=== PATIENT | male | born 1940 | race Caucasian/White ===

== ENCOUNTER 2017-01-23 12:55 | Inpatient (IN) | payer OTHER, MEDICARE ==
[2017-01-23] VITALS (9 sets, daily range): BP systolic 114–121; BP diastolic 65–69; PULSE 77–89; RESP 15; TEMP 97–98.8; O2SAT 99–100
[~2017-01-23] VITALS: Ht 180.3 cm; Wt 123.1 kg
[~2017-01-23 12:55] MED LIST: ASPI81TA82 PO; CARV3.12 PO; OXYBXL10 PO; PANT40IN3 PO; SIMV20TA PO
[2017-01-23] MEDS ORDERED: ONDANSETRON HCL 4 MG/2 ML VIAL IV PRN ×2 (13:15→14:30)
[2017-01-23] MEDS: PANTOPRAZOLE SODIUM 40 MG VIAL IV SCH (13:15)
[2017-01-23] MEDS ORDERED: NALOXONE HCL 0.4 MG/ML AMP IV PRN (13:15)
[2017-01-23] MEDS ORDERED: SODIUM CHLORIDE 0.9% FLUSH 5 ML FLUSH IVF PRN (13:15)
[2017-01-23] MEDS ORDERED: Post-op Orders (for Pharmacy) MISC XX ONE (13:15)
[2017-01-23 13:18] LABS: I-STAT POTASSIUM 7.2 MMOL/L (3.5-4.9)
[2017-01-23 13:19] LABS: AUTOMATED NEUTROPHIL # 6.1 TH/MM3 (1.8-7.7); BASOPHIL # 0.1 TH/MM3 (0-0.2); BASOPHIL % 0.6 % (0.0-2.0); EOSINOPHIL # 0.2 TH/MM3 (0-0.4); EOSINOPHIL % 2.7 % (0.0-4.0); HEMATOCRIT 43.1 % (39.0-51.0); HEMO FLAGS DIFF FINAL; LYMPH % 19.1 % (9.0-44.0); LYMPHOCYTE # 1.7 TH/MM3 (1.0-4.8); MEAN CELL VOLUME 85.5 FL (80.0-100.0); MEAN CORPUSCULAR HEMOGLOBIN 29.4 PG (27.0-34.0); MEAN CORPUSCULAR HGB CONC 34.4 % (32.0-36.0); MONO % 8.4 % (0.0-8.0); NEUT % 69.2 % (16.0-70.0); PLATELET COUNT 150 TH/MM3 (150-450); RED BLOOD COUNT 5.03 MIL/MM3 (4.50-5.90); RED CELL DISTRIBUTION WIDTH 13.8 % (11.6-17.2); WHITE BLOOD COUNT 8.8 TH/MM3 (4.0-11.0)
[2017-01-23 13:29] LABS: APTT (PATIENT) 25.1 SEC (24.3-30.1); INTERNATIONAL NORMALIZED RATIO 1.1 RATIO; PROTHROMBIN TIME - PATIENT 11.8 SEC (9.8-11.6)
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
[2017-01-23] MEDS ORDERED: IOHEXOL 350 MG/ML 10 ML VIAL (for RAD DIAG) IV ONE (13:42)
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
[2017-01-23] MEDS: fentaNYL DRIP 250 ML IV SCH ×2 (14:00→22:12)
[2017-01-23] MEDS: levETIRAcetam INJ 500 MG in SODIUM CHLORIDE 0.9% INJ 100 ML IV SCH ×2 (14:00→22:06)
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
[2017-01-23] MEDS ORDERED: DEXTROSE 50% IN WATER 50 ML VIAL(D50) IV PUSH PRN (14:30)
[2017-01-23] MEDS ORDERED: MAGNESIUM SULFATE INJ 2 GM in SODIUM CHLORIDE 0.9% INJ 96 ML IV PRN (14:30)
[2017-01-23] MEDS ORDERED: MISCELLANEOUS NURSING INFORMATION XX SCH (14:30)
[2017-01-23] MEDS ORDERED: RESP: ALBUTEROL 2.5 MG/IPRATROPIUM 0.5 MG NEB (PRN) INH (14:30)
[2017-01-23] MEDS ORDERED: SODIUM CHLORIDE 0.9% FLUSH 10 ML FLUSH IV FLUSH PRN (14:30)
[2017-01-23] MEDS ORDERED: POTASSIUM CHLOR 40 MEQ PREMIX 100 ML IV PRN (14:30)
[2017-01-23] MEDS ORDERED: MAGNESIUM OXIDE 400 MG TAB PO PRN (14:30)
[2017-01-23] MEDS ORDERED: POTASSIUM CHLOR 20 MEQ PREMIX 100 ML IV PRN (14:30)
[2017-01-23] MEDS ORDERED: POTASSIUM PHOSPHATE INJ 30 MMOL in SODIUM CHLOR 0.9% 250 ML INJ 250 ML IV PRN (14:30)
[2017-01-23] MEDS ORDERED: POTASSIUM PHOSPHATE MONOBASIC 500 MG TAB PO/TUBE PRN (14:30)
[2017-01-23] MEDS ORDERED: POTASSIUM PHOSPHATE MONOBASIC 500 MG TAB PO PRN (14:30)
[2017-01-23] MEDS ORDERED: CHLORHEXIDINE GLUCONATE 2 % 1 PACK (2 CLOTHS) TOP PRN (14:30)
[2017-01-23] MEDS ORDERED: MAGNESIUM SULFATE INJ 4 GM in SODIUM CHLORIDE 0.9% INJ 92 ML IV PRN (14:30)
[2017-01-23] MEDS ORDERED: SODIUM PHOSPHATE INJ 30 MMOL in SODIUM CHLOR 0.9% 250 ML INJ 240 ML IV PRN (14:30)
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
--- NOTE | 2017-01-23 15:09 | PD.PROCEDR ---
Procedure Note Procedure Procedure: Arterial Line Placement Right radial arterial line Diagnosis: Traumatic Brain injury Indications: Need for beat to beat hemodynamic monitoring Consent: Is deemed emergent or medically necessary Description of the Procedure: The right wrist was prepped and draped sterilely. 1% lidocaine was used for local anesthesia. The pulse was located and a needle was advanced into the artery. A 20 gauge, 12 cm catheter was advanced into the artery using a modified Seldinger technique. The catheter was sutured to the skin and a sterile dressing was applied. The catheter was connected to a pressure transducer and an arterial waveform was noted. There were no immediate complications noted. There was minimal EBL. I personally performed the procedure. Lul Orozco MD Jan 23, 2017 15:09
[2017-01-23 15:23] LABS: BICARBONATE 23.8 MEQ/L (21.0-32.0); POTASSIUM 4.3 MEQ/L (3.5-5.1)
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
[2017-01-23] MEDS: 3% SALINE INJ 500 ML IV PRN ×2 (16:00→22:14)
[2017-01-23] MEDS: RESP: ALBUTEROL 2.5 MG/IPRATROPIUM 0.5 MG NEB (SCH) INH ×2 (16:18→21:00)
[2017-01-23] MEDS: PROPOFOL 1000 MG/100 ML INJ 100 ML IV SCH ×3 (16:20→22:04)
--- NOTE | 2017-01-23 16:28 | RADRPT ---
EXAM DATE/TIME: 01/23/2017 15:54 [facility] COMPARISON: CHEST SINGLE AP, January 23, 2017, 12:52. INDICATIONS : Central line placement. MEDICAL HISTORY : SURGICAL HISTORY : None. ENCOUNTER: Subsequent ACUITY: 2 days PAIN SCORE: Non-responsive. LOCATION: Bilateral chest FINDINGS: A single view of the chest demonstrates multiple left lateral rib fractures with no obvious pneumotho rax. Endotracheal tube remains appropriately positioned above the gayathri with interval placement of a left subclavian central venous catheter. Tip projects over the central venous system. Nasogastric tu be is now present which crosses the GE junction and enters the stomach. Findings of prior CABG. Mild atelectatic changes of the left hemidiaphragm laterally. Lungs are other meza clear. CONCLUSION: 1. Stable position of endotracheal tube with interval placement of nasogastric tube and left subclavi an central venous catheter. 2. Mild atelectatic changes in the left base. Lungs are otherwise clear. 3. Multiple left-sided rib fractures. No pneumothorax. 4. Prior CABG. Ralph Thompson MD on January 23, 2017 at 16:23 Board Certified Radiologist. This report was verified electronically.
[2017-01-23 16:30] LABS: BLOOD GAS BASE EXCESS -4.5 mmol/L (-2-2); BLOOD GAS CARBOXYHEMOGLOBIN 1.1 % (0-4); BLOOD GAS HCO3 21 mmol/L (22-26); BLOOD GAS METHEMOGLOBIN 0.9 % (0-2); BLOOD GAS O2 HGB SATURATION 97 % (90-100); BLOOD GAS OXYGEN CONTENT 20.3 Vol % (12.0-20.0); BLOOD GAS PCO2 42 mmHg (38-42); BLOOD GAS PO2 129 mmHg (61-120); BLOOD GAS TOTAL HGB 14.8 G/DL (12.0-16.0); CRITICAL VALUE NO; TEMP CORR TO 98.6
[2017-01-23 16:31] LABS: DRAW SITE ART LINE; FIO2 40 %; OXYGEN DEVICE VENTILATOR; STAT NO
[2017-01-23] MEDS ORDERED: MIDAZOLAM HCL 5 MG/ML VIAL (1 ML) ONE (16:35)
[2017-01-23] MEDS: SODIUM CHLOR 0.9% 1000 ML INJ 1,000 ML IV SCH ×2 (17:15→23:57)
[2017-01-23] MEDS ORDERED: 3% SALINE INJ 250 ML IV ONE (17:15)
[2017-01-23] MEDS ORDERED: SODIUM CHLOR 0.9% 1000 ML INJ 1,000 ML IV ONE (17:15)
[2017-01-23] MEDS ORDERED: SODIUM CHLORIDE 23.4% INJ 240 MEQ in SYRINGE/BAG 1 EA IV ONE (17:15)
[2017-01-23] MEDS: INSULIN NovoLIN REGULAR SUPPLEMENTAL SCALE SQ SCH (18:00)
[2017-01-23] MEDS ORDERED: ASPI81CH CHEW (18:22)
[2017-01-23] MEDS ORDERED: PANT40TA3 PO (18:22)
[2017-01-23] MEDS ORDERED: SIMV20TA PO (18:22)
[2017-01-23] MEDS ORDERED: CARV6.252 PO (18:22)
[2017-01-23] MEDS ORDERED: FINA5TAB2 PO (18:22)
[2017-01-23] MEDS: DOCUSATE SODIUM 50 MG/SENNA 8.6 MG TAB PO SCH (20:49)
[2017-01-23] MEDS: SODIUM CHLORIDE 0.9% FLUSH 5 ML FLUSH IVF SCH (20:50)
[2017-01-23] MEDS: CHLORHEXIDINE 0.12% (ORAL KIT) 15 ML CUP MT SCH (20:50)
[2017-01-23] MEDS ORDERED: NOREPINEPHRINE 4 MG/4 ML AMP ONE (20:58)
[2017-01-23] MEDS ORDERED: SODIUM CHLORIDE 0.9% FLUSH 10 ML FLUSH IV FLUSH SCH (21:00)
[2017-01-23] MEDS ORDERED: SODIUM CHLORIDE 23.4% INJ 240 MEQ in SYRINGE/BAG 1 EA IV PRN (21:00)
[2017-01-23] MEDS: NOREPINEPHRINE IV SCH (22:13)
[2017-01-23] MEDS: SODIUM CHLORIDE 0.9% IV SCH (22:13)
[2017-01-24] VITALS (20 sets, daily range): BP systolic 105–135; BP diastolic 50–62; PULSE 56–77; RESP 15–18; TEMP 98.8–100; O2SAT 98–100
[2017-01-24] MEDS: PROPOFOL 1000 MG/100 ML INJ 100 ML IV SCH ×7 (01:59→23:43)
[2017-01-24] MEDS: RESP: ALBUTEROL 2.5 MG/IPRATROPIUM 0.5 MG NEB (SCH) INH ×4 (03:16→20:51)
[2017-01-24] MEDS: CHLORHEXIDINE GLUCONATE 2 % 1 PACK (2 CLOTHS) TOP SCH (03:20)
[2017-01-24 03:23] LABS: AUTOMATED NEUTROPHIL # 8.6 TH/MM3 (1.8-7.7); BASOPHIL # 0.1 TH/MM3 (0-0.2); BASOPHIL % 0.6 % (0.0-2.0); EOSINOPHIL # 0.1 TH/MM3 (0-0.4); EOSINOPHIL % 1.1 % (0.0-4.0); HEMATOCRIT 36.1 % (39.0-51.0); HEMO FLAGS DIFF FINAL; LYMPH % 8.5 % (9.0-44.0); LYMPHOCYTE # 0.9 TH/MM3 (1.0-4.8); MEAN CELL VOLUME 85.6 FL (80.0-100.0); MONO % 12.2 % (0.0-8.0); NEUT % 77.6 % (16.0-70.0); PLATELET COUNT 121 TH/MM3 (150-450); RED BLOOD COUNT 4.21 MIL/MM3 (4.50-5.90); RED CELL DISTRIBUTION WIDTH 14.3 % (11.6-17.2); WHITE BLOOD COUNT 11.1 TH/MM3 (4.0-11.0)
[2017-01-24 03:49] LABS: BICARBONATE 22.3 MEQ/L (21.0-32.0); POTASSIUM 3.9 MEQ/L (3.5-5.1)
--- NOTE | 2017-01-24 04:46 | RADRPT ---
EXAM DATE/TIME: 01/24/2017 03:13 [facility] COMPARISON: CHEST SINGLE AP, January 23, 2017, 15:54. INDICATIONS : Shortness of breath. MEDICAL HISTORY : Non-responsive SURGICAL HISTORY : Non-responsive ENCOUNTER: Subsequent ACUITY: 2 days PAIN SCORE: Non-responsive. LOCATION: Bilateral chest FINDINGS: Sternotomy wires, mediastinal clips and cardiomegaly. No definite consolidation. CONCLUSION: No significant change has occurred. Germain Vallejo MD on January 24, 2017 at 4:44 Board Certified Radiologist. This report was verified electronically.
[2017-01-24] MEDS: SODIUM CHLORIDE 0.9% IV SCH ×2 (05:54→16:04)
[2017-01-24] MEDS: NOREPINEPHRINE IV SCH ×2 (05:54→16:04)
[2017-01-24] MEDS: INSULIN NovoLIN REGULAR SUPPLEMENTAL SCALE SQ SCH ×4 (06:00→17:13)
[2017-01-24 06:07] LABS: BLOOD GAS BASE EXCESS -4.5 mmol/L (-2-2); BLOOD GAS CARBOXYHEMOGLOBIN 1.5 % (0-4); BLOOD GAS HCO3 20 mmol/L (22-26); BLOOD GAS METHEMOGLOBIN 0.9 % (0-2); BLOOD GAS O2 HGB SATURATION 96 % (90-100); BLOOD GAS PCO2 34 mmHg (38-42); BLOOD GAS PO2 100 mmHg (61-120); BLOOD GAS TOTAL HGB 11.8 G/DL (12.0-16.0); CRITICAL VALUE NO; OXYGEN DEVICE VENTILATOR; TEMP CORR TO 98.6
[2017-01-24 06:08] LABS: DRAW SITE ART LINE; FIO2 40 %; STAT NO; VENT SETTINGS PRVC/AC
--- NOTE | 2017-01-24 06:18 | RADRPT ---
EXAM DATE/TIME: 01/24/2017 05:12 [facility] COMPARISON: CT BRAIN W/O CONTRAST, January 23, 2017, 13:22. INDICATIONS : Evaluate for hemorrhage. RADIATION DOSE: 68.42 CTDIvol (mGy) MEDICAL HISTORY : Non-responsive. SURGICAL HISTORY : Non-responsive. ENCOUNTER: Subsequent ACUITY: 1 day PAIN SCALE: Non-responsive LOCATION: cranial TECHNIQUE: Multiple contiguous axial images were obtained of the head. Using automated exposure control and adj ustment of the mA and/or kV according to patient size, radiation dose was kept as low as reasonably a chievable to obtain optimal diagnostic quality images. FINDINGS: There is hemorrhage layering along the tentorium bilaterally, hemorrhage in the interpeduncular ciste rn and perimesencephalic cistern and ambient cistern, extensive subarachnoid hemorrhage with a as wel l as intra-ventricular hemorrhage. Bilateral mastoid fluid and left middle ear opacification. Left sp henoid sinus and right ethmoid opacification. There is pneumocephalus in the left frontal region whic h is new from previous. Left frontal ICP monitor. There is an extra-axial hemorrhage in the right mid dle cranial fossa measuring 1.8 x 5.5 cm in AP and transverse dimension, not significantly changed. T here is a rounded hemorrhage measuring 1.9 1.6 cm in transverse and AP dimension on axial image 16, n ew from the previous study in the right sylvian fissure region. CONCLUSION: Increased hemorrhage on the right otherwise stable diffuse subarachnoid hemorrhage, subdural hemorrha ge and intraventricular hemorrhage. There is no left frontal pneumocephalus with interval left fronta l ICP monitor placement. Germain Vallejo MD on January 24, 2017 at 6:11 Board Certified Radiologist. This report was verified electronically.
[2017-01-24] MEDS: PANTOPRAZOLE SODIUM 40 MG VIAL IV SCH (08:33)
[2017-01-24] MEDS: levETIRAcetam INJ 500 MG in SODIUM CHLORIDE 0.9% INJ 100 ML IV SCH ×2 (08:33→20:11)
[2017-01-24] MEDS: SODIUM CHLOR 0.9% 1000 ML INJ 1,000 ML IV SCH ×2 (08:33→18:54)
[2017-01-24] MEDS: DOCUSATE SODIUM 50 MG/SENNA 8.6 MG TAB PO SCH ×2 (08:34→20:15)
[2017-01-24] MEDS: SODIUM CHLORIDE 0.9% FLUSH 5 ML FLUSH IVF SCH ×2 (08:34→20:15)
[2017-01-24] MEDS: CHLORHEXIDINE 0.12% (ORAL KIT) 15 ML CUP MT SCH ×2 (08:51→20:15)
[2017-01-24] MEDS ORDERED: PANTOPRAZOLE SODIUM 40 MG VIAL IV SCH (09:00)
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
[2017-01-24] MEDS: LACTULOSE SYRUP 20 GM/30 ML CUP PO SCH (11:59)
[2017-01-24] MEDS: 3% SALINE INJ 500 ML IV PRN (12:00)
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
[2017-01-24] MEDS: fentaNYL DRIP 250 ML IV SCH ×2 (13:31→23:42)
[2017-01-24] MEDS: ACETAMINOPHEN 325 MG TAB PO PRN (14:54)
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
[2017-01-24 22:16] LABS: BICARBONATE 23.4 MEQ/L (21.0-32.0); CALCIUM-PROTEIN CORRECTED 8.5 MG/DL (8.5-10.1); POTASSIUM 3.6 MEQ/L (3.5-5.1); TOTAL BILIRUBIN ADULT 0.8 MG/DL (0.2-1.0)
[2017-01-25] VITALS (18 sets, daily range): BP systolic 124–149; BP diastolic 53–77; PULSE 54–115; RESP 18; TEMP 95.5–100.6; O2SAT 93–100
[2017-01-25] MEDS: PROPOFOL 1000 MG/100 ML INJ 100 ML IV SCH ×7 (02:37→23:53)
--- NOTE | 2017-01-25 03:20 | RADRPT ---
EXAM DATE/TIME: 01/25/2017 02:01 [facility] COMPARISON: CHEST SINGLE AP, January 24, 2017, 3:13. INDICATIONS : Short of breath. MEDICAL HISTORY : Non-responsive SURGICAL HISTORY : Non-responsive ENCOUNTER: Subsequent ACUITY: 3 days PAIN SCORE: Non-responsive. LOCATION: Bilateral chest FINDINGS: Cardiomegaly, bilateral effusions and basilar consolidation suspected. Endotracheal tube, left subcla vian line and sternotomy wires are noted. Degenerative changes of the spine are seen. CONCLUSION: Bilateral effusions and basilar airspace disease noted. Germain Vallejo MD on January 25, 2017 at 3:19 Board Certified Radiologist. This report was verified electronically.
[2017-01-25] MEDS: RESP: ALBUTEROL 2.5 MG/IPRATROPIUM 0.5 MG NEB (SCH) INH ×4 (03:41→21:06)
[2017-01-25] MEDS: CHLORHEXIDINE GLUCONATE 2 % 1 PACK (2 CLOTHS) TOP SCH (04:00)
[2017-01-25 04:31] LABS: AUTOMATED NEUTROPHIL # 8.5 TH/MM3 (1.8-7.7); BASOPHIL % 0.4 % (0.0-2.0); EOSINOPHIL # 0.2 TH/MM3 (0-0.4); EOSINOPHIL % 2.3 % (0.0-4.0); HEMATOCRIT 30.8 % (39.0-51.0); LYMPH % 7.9 % (9.0-44.0); LYMPHOCYTE # 0.8 TH/MM3 (1.0-4.8); MEAN CELL VOLUME 85.5 FL (80.0-100.0); MEAN CORPUSCULAR HEMOGLOBIN 30.1 PG (27.0-34.0); MEAN CORPUSCULAR HGB CONC 35.3 % (32.0-36.0); MONO % 9.2 % (0.0-8.0); NEUT % 80.2 % (16.0-70.0); PLATELET COUNT 79 TH/MM3 (150-450); RED CELL DISTRIBUTION WIDTH 14.5 % (11.6-17.2); WHITE BLOOD COUNT 10.6 TH/MM3 (4.0-11.0)
[2017-01-25 04:40] LABS: HEMO FLAGS AUTO DIFF
[2017-01-25 04:49] LABS: BLOOD GAS CARBOXYHEMOGLOBIN 1.6 % (0-4); BLOOD GAS HCO3 18 mmol/L (22-26); BLOOD GAS METHEMOGLOBIN 0.9 % (0-2); BLOOD GAS O2 HGB SATURATION 96 % (90-100); BLOOD GAS PO2 105 mmHg (61-120); BLOOD GAS TOTAL HGB 11.1 G/DL (12.0-16.0); CRITICAL VALUE NO; DRAW SITE ART LINE; FIO2 40 %; OXYGEN DEVICE VENTILATOR; STAT NO; TEMP CORR TO 98.6; VENT SETTINGS PRVC/AC
[2017-01-25 04:50] LABS: BLOOD GAS PCO2 30 mmHg (38-42)
[2017-01-25 04:59] LABS: ALKALINE PHOSPHATASE 44 U/L (45-117); ALT (GPT) 23 U/L (12-78); AST (GOT) 20 U/L (15-37); BICARBONATE 20.4 MEQ/L (21.0-32.0); BLOOD UREA NITROGEN 15 MG/DL (7-18); CHLORIDE 124 MEQ/L (98-107); GLOMERULAR FILTRATION RATE 103 ML/MIN (>89); MAGNESIUM 1.9 MG/DL (1.5-2.5); POTASSIUM 3.4 MEQ/L (3.5-5.1); SODIUM (NA) 153 MEQ/L (136-145); TOTAL BILIRUBIN ADULT 0.7 MG/DL (0.2-1.0)
[2017-01-25 05:00] LABS: ANION GAP 9 MEQ/L (5-15)
[2017-01-25 05:23] LABS: PLATELET ESTIMATE SMEAR LOW (NORMAL); PLATELET MORPHOLOGY NORMAL (NORMAL); SCAN/DIFF AUTO DIFF CONFIRMED
[2017-01-25] MEDS: SODIUM CHLORIDE 0.9% IV SCH (06:13)
[2017-01-25] MEDS: NOREPINEPHRINE IV SCH (06:13)
[2017-01-25] MEDS: MIDAZOLAM 100 MG/ML INJ 100 ML IV SCH (06:15)
[2017-01-25] MEDS: SODIUM CHLOR 0.9% 1000 ML INJ 1,000 ML IV SCH ×2 (06:20→15:15)
[2017-01-25] MEDS: PANTOPRAZOLE SODIUM 40 MG VIAL IV SCH (08:11)
[2017-01-25] MEDS: levETIRAcetam INJ 500 MG in SODIUM CHLORIDE 0.9% INJ 100 ML IV SCH ×2 (08:11→21:26)
[2017-01-25] MEDS: DOCUSATE SODIUM 50 MG/SENNA 8.6 MG TAB PO SCH ×2 (08:11→21:26)
[2017-01-25] MEDS: CHLORHEXIDINE 0.12% (ORAL KIT) 15 ML CUP MT SCH ×2 (08:11→20:03)
[2017-01-25] MEDS: LACTULOSE SYRUP 20 GM/30 ML CUP PO SCH (08:11)
[2017-01-25] MEDS: SODIUM CHLORIDE 0.9% FLUSH 5 ML FLUSH IVF SCH ×2 (08:13→21:26)
[2017-01-25] MEDS: INSULIN NovoLIN REGULAR SUPPLEMENTAL SCALE SQ SCH ×2 (11:19→17:43)
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
[2017-01-25] MEDS ORDERED: METOPROLOL TARTRATE 5 MG/5 ML VIAL ONE (13:03)
[2017-01-25] MEDS ORDERED: 3% SALINE INJ 500 ML IV SCH (13:23)
[2017-01-25] MEDS ORDERED: METOPROLOL TARTRATE 5 MG/5 ML VIAL IV PUSH ONE (13:30)
[2017-01-25] MEDS: fentaNYL DRIP 250 ML IV SCH (13:54)
[2017-01-25] MEDS: ACETAMINOPHEN 325 MG TAB PO PRN (13:54)
[2017-01-25] MEDS ORDERED: MEPERIDINE HCL 25 MG/ML VIAL IV STA (17:00)
[2017-01-25] MEDS ORDERED: METOPROLOL TARTRATE 5 MG/5 ML VIAL IV PUSH STA (17:07)
[2017-01-25 17:42] LABS: BLOOD GAS BASE EXCESS -6.5 mmol/L (-2-2); BLOOD GAS CARBOXYHEMOGLOBIN 1.5 % (0-4); BLOOD GAS HCO3 19 mmol/L (22-26); BLOOD GAS METHEMOGLOBIN 0.9 % (0-2); BLOOD GAS O2 HGB SATURATION 92 % (90-100); BLOOD GAS OXYGEN CONTENT 14.4 Vol % (12.0-20.0); BLOOD GAS PCO2 40 mmHg (38-42); BLOOD GAS PO2 76 mmHg (61-120); BLOOD GAS TOTAL HGB 11.1 G/DL (12.0-16.0); TEMP CORR TO 98.6
[2017-01-25 17:43] LABS: OXYGEN DEVICE VENTILATOR
[2017-01-25 17:44] LABS: DRAW SITE ART LINE; FIO2 60 %
[2017-01-25 17:45] LABS: STAT YES
[2017-01-25 18:59] LABS: BLOOD GAS BASE EXCESS -6.9 mmol/L (-2-2); BLOOD GAS CARBOXYHEMOGLOBIN 1.7 % (0-4); BLOOD GAS HCO3 18 mmol/L (22-26); BLOOD GAS METHEMOGLOBIN 0.9 % (0-2); BLOOD GAS O2 HGB SATURATION 92 % (90-100); BLOOD GAS OXYGEN CONTENT 14.3 Vol % (12.0-20.0); BLOOD GAS PCO2 37 mmHg (38-42); BLOOD GAS PO2 73 mmHg (61-120); CRITICAL VALUE NO; OXYGEN DEVICE VENTILATOR; TEMP CORR TO 98.6
[2017-01-25 19:00] LABS: DRAW SITE ART LINE; FIO2 40 %; STAT NO
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
[2017-01-26] VITALS (19 sets, daily range): BP systolic 130–155; BP diastolic 60–76; PULSE 52–73; RESP 18; TEMP 94.1–98.1; O2SAT 96–100
[2017-01-26 01:10] LABS: BLOOD GAS BASE EXCESS -7.4 mmol/L (-2-2); BLOOD GAS CARBOXYHEMOGLOBIN 1.7 % (0-4); BLOOD GAS HCO3 17 mmol/L (22-26); BLOOD GAS METHEMOGLOBIN 0.8 % (0-2); BLOOD GAS O2 HGB SATURATION 95 % (90-100); BLOOD GAS OXYGEN CONTENT 14.4 Vol % (12.0-20.0); BLOOD GAS PO2 96 mmHg (61-120); BLOOD GAS TOTAL HGB 10.7 G/DL (12.0-16.0); CRITICAL VALUE NO; TEMP CORR TO 98.6
[2017-01-26 01:11] LABS: BLOOD GAS PCO2 31 mmHg (38-42); OXYGEN DEVICE VENTILATOR
[2017-01-26 01:12] LABS: DRAW SITE ART LINE; FIO2 40 %; STAT NO; VENT SETTINGS PRVC/SIMV
[2017-01-26] MEDS: SODIUM CHLOR 0.9% 1000 ML INJ 1,000 ML IV SCH ×3 (01:29→20:59)
[2017-01-26] MEDS: fentaNYL DRIP 250 ML IV SCH ×2 (03:15→14:54)
[2017-01-26] MEDS: RESP: ALBUTEROL 2.5 MG/IPRATROPIUM 0.5 MG NEB (SCH) INH ×4 (03:46→20:26)
[2017-01-26] MEDS: CHLORHEXIDINE GLUCONATE 2 % 1 PACK (2 CLOTHS) TOP SCH (04:00)
[2017-01-26 04:51] LABS: HEMATOCRIT 30.6 % (39.0-51.0); MEAN CELL VOLUME 85.5 FL (80.0-100.0); MEAN CORPUSCULAR HEMOGLOBIN 29.6 PG (27.0-34.0); MEAN CORPUSCULAR HGB CONC 34.6 % (32.0-36.0); PLATELET COUNT 78 TH/MM3 (150-450); RED BLOOD COUNT 3.58 MIL/MM3 (4.50-5.90); RED CELL DISTRIBUTION WIDTH 14.5 % (11.6-17.2); WHITE BLOOD COUNT 11.4 TH/MM3 (4.0-11.0)
[2017-01-26 04:57] LABS: REVIEW FLAG FINAL
[2017-01-26 05:13] LABS: BICARBONATE 22.6 MEQ/L (21.0-32.0)
[2017-01-26] MEDS: SODIUM CHLORIDE 0.9% IV SCH (05:16)
[2017-01-26] MEDS: NOREPINEPHRINE IV SCH (05:16)
[2017-01-26] MEDS: PROPOFOL 1000 MG/100 ML INJ 100 ML IV SCH ×7 (05:18→19:44)
[2017-01-26] MEDS: INSULIN NovoLIN REGULAR SUPPLEMENTAL SCALE SQ SCH ×5 (05:23→23:55)
[2017-01-26] MEDS: POTASSIUM CHLOR 40 MEQ PREMIX 100 ML IV PRN ×3 (06:31→20:57)
--- NOTE | 2017-01-26 06:35 | RADRPT ---
EXAM DATE/TIME: 01/26/2017 05:25 [facility] COMPARISON: CHEST SINGLE AP, January 25, 2017, 2:01. INDICATIONS : Shortness of breath. MEDICAL HISTORY : None. SURGICAL HISTORY : None. ENCOUNTER: Subsequent ACUITY: 4 - 6 days PAIN SCORE: Non-responsive. LOCATION: Bilateral chest FINDINGS: Single portable frontal view the chest shows breathing motion artifact. Tip of the endotracheal tube approximately 5 cm from the gayathri. Nasogastric tube tip in the region of the body the stomach. Left subclavian central line. No pneumothorax. Bibasilar intra-alveolar infiltrates with small effusions a re stable. Heart is normal in size. Median sternotomy wires. CONCLUSION: Unchanged bibasilar infiltrates with small effusions. Haroon Zepeda Jr., MD on January 26, 2017 at 6:33 Board Certified Radiologist. This report was verified electronically.
[2017-01-26 07:42] LABS: BLOOD, URINE NEG (NEG); COMMENT (UR) CATH-CULT NOT IND; CULTURE IF INDICATED CATH CULTURE NOT IND; GLUCOSE,URINE 70 mg/dL (NEG); KETONE, URINE 40 mg/dL (NEG); MUCUS URINE FEW /lpf (OCC); NITRITE,URINE NEG (NEG); PH, URINE 5.5 (5.0-8.5); URINE COLOR YELLOW (YELLW/STRAW)
[2017-01-26] MEDS: CHLORHEXIDINE 0.12% (ORAL KIT) 15 ML CUP MT SCH ×2 (08:00→20:00)
[2017-01-26] MEDS: LACTULOSE SYRUP 20 GM/30 ML CUP PO SCH (08:39)
[2017-01-26] MEDS: levETIRAcetam INJ 500 MG in SODIUM CHLORIDE 0.9% INJ 100 ML IV SCH ×2 (08:39→20:57)
[2017-01-26] MEDS: DOCUSATE SODIUM 50 MG/SENNA 8.6 MG TAB PO SCH ×2 (08:39→20:58)
[2017-01-26] MEDS: PANTOPRAZOLE SODIUM 40 MG VIAL IV SCH (08:40)
[2017-01-26] MEDS: SODIUM CHLORIDE 0.9% FLUSH 5 ML FLUSH IVF SCH ×2 (08:40→20:58)
[2017-01-26 10:53] LABS: CREATINE KINASE 137 U/L (39-308)
[2017-01-26 11:05] LABS: CKMB 1.9 NG/ML (0.5-3.6)
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
[2017-01-26 11:36] LABS: ALKALINE PHOSPHATASE 44 U/L (45-117); ALT (GPT) 19 U/L (12-78); ANION GAP 5 MEQ/L (5-15); AST (GOT) 16 U/L (15-37); BICARBONATE 22.2 MEQ/L (21.0-32.0); BLOOD UREA NITROGEN 14 MG/DL (7-18); CHLORIDE 128 MEQ/L (98-107); GLOMERULAR FILTRATION RATE 110 ML/MIN (>89); POTASSIUM 3.4 MEQ/L (3.5-5.1); SODIUM (NA) 155 MEQ/L (136-145); TOTAL BILIRUBIN ADULT 0.7 MG/DL (0.2-1.0)
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
--- NOTE | 2017-01-26 14:11 | HHI.NSPN ---
(Declan Galvin) History Chief Complaint: Sedated and intubated. (Declan Galvin) Interval History 01/26/17: Pt sedated on Diprivan, Fentanyl, and Versed drips. Exam limited from sedation. ICPs currently 15. (Declan Galvin) System Review Comments Not able to obtain given level of alertness. (Declan Galvin) Exam Results Vital Signs Date Time Temp Pulse Resp B/P Pulse Ox O2 Delivery O2 Flow Rate FiO2 01/26/17 12:14 100 40 01/26/17 12:00 97.7 61 18 137/62 Intake and Output 01/25/17 01/25/17 01/26/17 08:00 16:00 00:00 Intake Total 962 ml 2731 ml 1611 ml Output Total 300 ml 375 ml 250 ml Balance 662 ml 2356 ml 1361 ml (Declan Galvin) Physical Examination Resp: Intubated. CTA bilaterally. SIMV volume controlled. FiO2 40%. Rate 18. PEEP 5. Heart: NSR no murmurs Abd: Mild firmness. Diminished bs. Skin: No cyanosis or erythema. SCDs in place. Muscle: Not following for muscle testing. No response to deep pain secondary to heavy sedation. Neuro: Pt pupils 1mm NR bilaterally. Not following commands. [place] bolt in place. ICPs15 via bolt. Pt on NaCl 3%. (Declan Galvin) Lab, Micro, Other Results Last Impressions Chest X-Ray 01/26/17 06 Signed Impressions: Service Date/Time: Thursday, January 26, 2017 05:25 - CONCLUSION: Unchanged bibasilar infiltrates with small effusions. Haroon Zepeda Jr., MD Head CT 01/24/17 06 Signed Impressions: Service Date/Time: Tuesday, January 24, 2017 05:12 - CONCLUSION: Increased hemorrhage on the right otherwise stable diffuse subarachnoid hemorrhage, subdural hemorrhage and intraventricular hemorrhage. There is no left frontal pneumocephalus with interval left frontal ICP monitor placement. Germain Vallejo MD Transcranial Doppler Study Complete 01/24/17 0000 Signed Impressions: Service Date/Time: Tuesday, January 24, 2017 10:15 - CONCLUSION: No Doppler findings of intracranial vasospasm. Ralph Thompson MD Pelvis X-Ray 01/23/17 1301 Signed Impressions: Service Date/Time: Monday, January 23, 2017 12:52 - CONCLUSION: No acute disease. Dimitri Orosco MD Chest CT 01/23/17 1301 Signed Impressions: Service Date/Time: Monday, January 23, 2017 13:32 - CONCLUSION: 1. Fracture of the left third, fourth and fifth ribs. 2. The aorta and great vessels are intact. 3. 1 cm partially calcified nodule in the right lung apex probably representing a granuloma. 4. No pneumothorax identified. Zack Carlton MD Cervical Spine CT 01/23/17 1301 Signed Impressions: Service Date/Time: Monday, January 23, 2017 13:32 - CONCLUSION: 1. Advanced degenerative changes throughout the cervical spine. No acute fracture is identified. Zack Carlton MD Abdomen/Pelvis CT 01/23/17 1301 Signed Impressions: Service Date/Time: Monday, January 23, 2017 13:32 - CONCLUSION: 1. Multiple simple cysts within the liver. The largest measures 5.6 x 3.5 cm. 2. 3.7 cm infrarenal abdominal aortic aneurysm. 3. No findings to indicate significant intra-abdominal trauma. Zack Carlton MD Laboratory Tests Test 01/25/17 01/25/17 01/25/17 01/25/17 17:05 18:47 20:55 23:25 Blood Gas Puncture Site ART LINE ART LINE Blood Gas Patient Temperature 98.6 98.6 Blood Gas HCO3 19 mmol/L 18 mmol/L Blood Gas Base Excess -6.5 mmol/L -6.9 mmol/L Blood Gas Oxygen Saturation 92 % 92 % Arterial Blood pH 7.29 7.31 Arterial Blood Partial 40 mmHg 37 mmHg Pressure CO2 Arterial Blood Partial 76 mmHg 73 mmHg Pressure O2 Arterial Blood Oxygen Content 14.4 Vol % 14.3 Vol % Arterial Blood 1.5 % 1.7 % Carboxyhemoglobin Arterial Blood Methemoglobin 0.9 % 0.9 % Blood Gas Hemoglobin 11.1 G/DL 11.0 G/DL Oxygen Delivery Device VENTILATOR VENTILATOR Blood Gas Ventilator Setting Blood Gas Inspired Oxygen 60 % 40 % Sodium Level 152 MEQ/L Serum Osmolality 314 MOSM/KG Thyroid Stimulating Hormone 0.086 uIU/ML 3rd Gen Test 01/26/17 01/26/17 01/26/17 01/26/17 00:56 04:25 06:33 10:14 Blood Gas Puncture Site ART LINE Blood Gas Patient Temperature 98.6 Blood Gas HCO3 17 mmol/L Blood Gas Base Excess -7.4 mmol/L Blood Gas Oxygen Saturation 95 % Arterial Blood pH 7.36 Arterial Blood Partial 31 mmHg Pressure CO2 Arterial Blood Partial 96 mmHg Pressure O2 Arterial Blood Oxygen Content 14.4 Vol % Arterial Blood 1.7 % Carboxyhemoglobin Arterial Blood Methemoglobin 0.8 % Blood Gas Hemoglobin 10.7 G/DL Oxygen Delivery Device VENTILATOR Blood Gas Ventilator Setting PRVC/SIMV Blood Gas Inspired Oxygen 40 % White Blood Count 11.4 TH/MM3 Red Blood Count 3.58 MIL/MM3 Hemoglobin 10.6 GM/DL Hematocrit 30.6 % Mean Corpuscular Volume 85.5 FL Mean Corpuscular Hemoglobin 29.6 PG Mean Corpuscular Hemoglobin 34.6 % Concent Red Cell Distribution Width 14.5 % Platelet Count 78 TH/MM3 Mean Platelet Volume 9.5 FL Sodium Level 153 MEQ/L 155 MEQ/L Potassium Level 3.0 MEQ/L 3.4 MEQ/L Chloride Level 125 MEQ/L 128 MEQ/L Carbon Dioxide Level 22.6 MEQ/L 22.2 MEQ/L Anion Gap 5 MEQ/L 5 MEQ/L Blood Urea Nitrogen 13 MG/DL 14 MG/DL Creatinine 0.70 MG/DL 0.70 MG/DL Estimat Glomerular Filtration 110 ML/MIN 110 ML/MIN Rate Random Glucose 131 MG/DL 160 MG/DL Serum Osmolality 320 MOSM/KG 318 MOSM/KG Calcium Level 8.0 MG/DL 8.2 MG/DL Random Cortisol 22.4 MCG/DL Urine Color YELLOW Urine Turbidity CLEAR Urine pH 5.5 Urine Specific [place] 1.022 Urine Protein TRACE mg/dL Urine Glucose (UA) 70 mg/dL Urine Ketones 40 mg/dL Urine Occult Blood NEG Urine Nitrite NEG Urine Bilirubin NEG Urine Urobilinogen LESS THAN 2.0 MG/DL Urine Leukocyte Esterase NEG Urine RBC 2 /hpf Urine WBC 1 /hpf Urine Mucus FEW /lpf Microscopic Urinalysis Comment CATH-CULT NOT IND Total Bilirubin 0.7 MG/DL Aspartate Amino Transf 16 U/L (AST/SGOT) Alanine Aminotransferase 19 U/L (ALT/SGPT) Alkaline Phosphatase 44 U/L Total Creatine Kinase 137 U/L Creatine Kinase MB 1.9 NG/ML Troponin I 0.15 NG/ML Total Protein 4.8 GM/DL Albumin 2.1 GM/DL Procalcitonin 0.58 ng/mL 01/25/17 01/25/17 01/26/17 15:00 23:00 07:00 Intake Total 2731 ml 1611 ml 1228 ml Output Total 375 ml 250 ml 500 ml Balance 2356 ml 1361 ml 728 ml Intake IV Total 2481 ml 1611 ml 1228 ml Tube Feeding 150 ml Other 100 ml Output Urine Total 375 ml 250 ml 500 ml # Bowel Movements 0 0 0 (Declan Galvin) Medical Decision Making Impression and Plan Diagnosis: (1) Closed head injury Plan: ICP monitoring implemented, GCS is 3 on sedation, initial ICP 20-35 without sedation. Currently 15. (2) Fracture of left side of base of skull Plan: Initial bleeding from the left ear, no CSF leak so far. (3) Subdural hematoma Plan: Continue to monitor. (4) Traumatic subarachnoid hematoma with loss of consciousness Plan: Continue to monitor. Seizure prophylaxis and CPP 70-80 is recommended at this time. (Declan Galvin) Attending Statement The exam, history, and the medical decision-making described in the above note were completed with the assistance of the mid-level provider. I reviewed and agree with the findings presented. I attest that I had a [id number] encounter with the patient on the same day, and personally performed and documented my assessment and findings in the medical record. ICP is currently in the teens and well controlled with medical management. Continue with supportive care and ICP control measures. (Alin Jaime MD) Declan Galvin Jan 26, 2017 14:11 Alin Jaime MD Jan 26, 2017 14:46
[2017-01-26] MEDS ORDERED: MIDAZOLAM HCL 5 MG/ML VIAL (1 ML) ONE (16:48)
[2017-01-26] MEDS ORDERED: MIDAZOLAM HCL 5 MG/ML VIAL (1 ML) IV ONE (17:00)
[2017-01-26] MEDS: MIDAZOLAM 100 MG/ML INJ 100 ML IV SCH (17:24)
[2017-01-26 17:47] LABS: POTASSIUM 3.4 MEQ/L (3.5-5.1)
[2017-01-26] MEDS: POTASSIUM CHLOR 20 MEQ PREMIX 100 ML IV PRN (18:43)
[2017-01-26] MEDS: NOREPINEPHRINE INJ 4 MG in SODIUM CHLOR 0.9% 250 ML INJ 246 ML IV SCH (20:46)
--- NOTE | 2017-01-26 23:01 | EC ---
Study Study Date:01/26/2017 STUDY CONCLUSIONS SUMMARY - Left ventricle: The cavity size was normal. Wall thickness was normal. Systolic function was normal. The estimated ejection fraction was 65%. Wall motion was normal; there were no regional wall motion abnormalities. - Tricuspid valve: Mild regurgitation. - Pulmonary arteries: Systolic pressure was mildly to moderately increased. PA peak pressure: 50mm Hg (S). If LV function is below 40, please consider prescribing an ACEI or ARB or document rationale for non-use. PROCEDURE DATA STUDY STATUS: Elective. Procedure: Transthoracic echocardiography. Image quality was good. Scanning was performed from the parasternal, apical, and subcostal acoustic windows. Study completion: The patient tolerated the procedure well. Transthoracic echocardiography. M-mode, complete 2D, complete spectral Doppler, and color Doppler. Weight: Weight: 258.5lb. Patient status: Inpatient. CARDIAC ANATOMY LEFT VENTRICLE: The cavity size was normal. Wall thickness was normal. Systolic function was normal. The estimated ejection fraction was 65%. Wall motion was normal; there were no regional wall motion abnormalities. AORTIC VALVE: Trileaflet; normal thickness leaflets. Doppler: Transvalvular velocity was within the normal range. There was no stenosis. No regurgitation. Valve area: 2.27cm^2 (Vmax). Peak gradient: 13mm Hg (S). AORTA: Aortic root: The aortic root was normal in size. MITRAL VALVE: Structurally normal valve. Doppler: Transvalvular velocity was within the normal range. There was no evidence for stenosis. No regurgitation. Peak gradient: 2mm Hg (D). LEFT ATRIUM: The atrium was normal in size. RIGHT VENTRICLE: The cavity size was normal. Wall thickness was normal. PULMONIC VALVE: Doppler: Transvalvular velocity was within the normal range. There was no evidence for stenosis. No regurgitation. TRICUSPID VALVE: Structurally normal valve. Doppler: Transvalvular velocity was within the normal range. Mild regurgitation. PULMONARY ARTERY: The main pulmonary artery was normal-sized. Systolic pressure was mildly to moderately increased. RIGHT ATRIUM: The atrium was normal in size. PERICARDIUM: There was no pericardial effusion. SYSTEMIC VEINS: Inferior vena cava: The vessel was normal in size. Patient weight: 258.5lb _Ejection fraction:_ 65-75% _Fractional shortening:_ 32% up to 5Kg 5-11.5Kg 11.6-22.9Kg 23-45Kg 45-57Kg Aortic Root 7-13 <17 13-22 17-27 17-27 LA diam 6-13 <23 24-38 33-47 37-40 RVID 10-17 7-15 7-15 7-18 8-17 LVIDd 12-22 <32 24-38 33-47 37-40 LVPW 2-4 3-6 5-7 6-8 7-8 IVS 2-4 3-6 5-7 6-8 7-8 BASIC MEASUREMENTS ADULT NORMAL Left ventricle LV internal dimension, ED, chordal level, 45.4 mm 43-52 PLAX LV internal dimension, ES, chordal level, 36 mm 23-38 PLAX Fractional shortening, chordal level, PLAX *21 % >29 LV posterior wall thickness, ED 9.18 mm IVS/LVPW ratio, ED 1.03 <1.3 Ventricular septum Septal thickness, ED 9.47 mm Aortic valve Leaflet separation 21 mm 15-26 Right ventricle RV internal dimension, ED, PLAX 30.4 mm 19-38 BASIC MEASUREMENTS ADULT NORMAL Aortic valve Leaflet separation 21 mm 15-26 Aorta Root diameter, ED *43 mm 20-37 Left atrium Anterior-posterior dimension, ES 32 mm 19-40 LA/aortic root ratio 0.74 DOPPLER MEASUREMENTS ADULT NORMAL Main pulmonary artery Pressure, S *50 mm Hg =30 Aortic valve Peak velocity, S 183 cm/s Peak gradient, S 13 mm Hg Valve area, Vmax 2.27 cm^2 Mitral valve Peak E-wave velocity 78 cm/s Peak A-wave velocity 61.7 cm/s Deceleration time *239 ms 150-230 Peak gradient, D 2 mm Hg Peak E/A ratio 1.3 Maximal regurgitant velocity 269 cm/s Tricuspid valve Regurgitant peak velocity 307 cm/s Peak RV-RA gradient, S 38 mm Hg Maximal regurgitant velocity 307 cm/s Systemic veins Estimated CVP 10 mm Hg Right ventricle RV pressure, S *50 mm Hg <30 Pulmonic valve Peak velocity, S 129 cm/s LEGEND: Mean values are shown as u=mean value. Asterisk (*) castellanos values outside specified normal range. Prepared and signed by Philip Morales [id number]
[2017-01-26 23:06] LABS: APTT (PATIENT) 29.4 SEC (24.3-30.1); INTERNATIONAL NORMALIZED RATIO 1.1 RATIO
[2017-01-27] VITALS (21 sets, daily range): BP systolic 112–132; BP diastolic 56–66; PULSE 59–103; RESP 18–22; TEMP 97–99.5; O2SAT 88–97
[2017-01-27] MEDS: fentaNYL DRIP 250 ML IV SCH ×3 (00:09→20:49)
[2017-01-27] MEDS: PROPOFOL 1000 MG/100 ML INJ 100 ML IV SCH ×6 (03:20→23:09)
[2017-01-27] MEDS: MIDAZOLAM 100 MG/ML INJ 100 ML IV SCH (03:22)
[2017-01-27] MEDS: RESP: ALBUTEROL 2.5 MG/IPRATROPIUM 0.5 MG NEB (SCH) INH ×4 (03:57→20:16)
[2017-01-27] MEDS: CHLORHEXIDINE GLUCONATE 2 % 1 PACK (2 CLOTHS) TOP SCH (04:00)
[2017-01-27 04:39] LABS: HEMATOCRIT 27.9 % (39.0-51.0); MEAN CELL VOLUME 85.9 FL (80.0-100.0); MEAN CORPUSCULAR HEMOGLOBIN 29.6 PG (27.0-34.0); MEAN CORPUSCULAR HGB CONC 34.4 % (32.0-36.0); PLATELET COUNT 77 TH/MM3 (150-450); RED BLOOD COUNT 3.25 MIL/MM3 (4.50-5.90); RED CELL DISTRIBUTION WIDTH 14.8 % (11.6-17.2); WHITE BLOOD COUNT 7.5 TH/MM3 (4.0-11.0)
[2017-01-27 04:44] LABS: REVIEW FLAG FINAL
[2017-01-27 05:13] LABS: BICARBONATE 22.1 MEQ/L (21.0-32.0); POTASSIUM 3.6 MEQ/L (3.5-5.1)
--- NOTE | 2017-01-27 05:41 | RADRPT ---
EXAM DATE/TIME: 01/27/2017 04:31 [facility] COMPARISON: CHEST SINGLE AP, January 26, 2017, 5:25. INDICATIONS : Shortness of breath, possible pulmonary disease. MEDICAL HISTORY : None. SURGICAL HISTORY : None. ENCOUNTER: Subsequent ACUITY: 1 week PAIN SCORE: Non-responsive. LOCATION: Bilateral chest FINDINGS: A single portable frontal view of the chest is blurred by brain motion artifact. Bibasilar pulmonary infiltrates show no significant change. Heart remains mildly enlarged. Tip of the nasogastric tube in the region of the body of the stomach. Tip of the endotracheal tube 2 cm cephalad of the gayathri. Lef t subclavian central line. Median sternotomy wires. CONCLUSION: Unchanged bilateral pulmonary infiltrates. Haroon Zepeda Jr., MD on January 27, 2017 at 5:39 Board Certified Radiologist. This report was verified electronically.
[2017-01-27] MEDS: INSULIN NovoLIN REGULAR SUPPLEMENTAL SCALE SQ SCH ×3 (06:00→16:51)
[2017-01-27] MEDS: SODIUM CHLOR 0.9% 1000 ML INJ 1,000 ML IV SCH ×2 (06:41→16:51)
[2017-01-27] MEDS: PANTOPRAZOLE SODIUM 40 MG VIAL IV SCH (09:08)
[2017-01-27] MEDS: levETIRAcetam INJ 500 MG in SODIUM CHLORIDE 0.9% INJ 100 ML IV SCH ×2 (09:08→20:21)
[2017-01-27] MEDS: CHLORHEXIDINE 0.12% (ORAL KIT) 15 ML CUP MT SCH ×2 (09:08→20:00)
[2017-01-27] MEDS: SODIUM CHLORIDE 0.9% FLUSH 5 ML FLUSH IVF SCH ×2 (09:09→20:21)
[2017-01-27] MEDS: DOCUSATE SODIUM 50 MG/SENNA 8.6 MG TAB PO SCH ×2 (09:09→20:22)
[2017-01-27] MEDS: LACTULOSE SYRUP 20 GM/30 ML CUP PO SCH (09:09)
[2017-01-27] MEDS: PIPERACIL-TAZO 4.5 GM PREMIX 100 ML IV SCH ×2 (09:18→11:13)
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
--- NOTE | 2017-01-27 10:58 | EKG ---
Date Performed: 01/26/2017 Time Performed: 09:54:32 PTAGE: 76 years EKG: CONSIDER ACUTE ST ELEVATION [place] Sinus rhythm with 1st degree A-V block. Consider left atrial abnormality Right bundle branch block Anterolateral ST elevation, CONSIDER ACUTE INFARCT Low QRS voltages in precordial leads Abnormal ECG NO PREVIOUS TRACING DOCTOR: Colt Singh Interpretating Date/Time 01/27/2017 10:56:22
[2017-01-27] MEDS ORDERED: BUMETANIDE INJ 1 MG/4 ML VIAL IV PUSH ONE (11:00)
--- NOTE | 2017-01-27 11:16 | EKG ---
Date Performed: 01/25/2017 Time Performed: 16:23:08 PTAGE: 76 years EKG: Sinus tachycardia Indeterminate axis Right bundle branch block Possible inferior infarct - age undetermined Low QRS voltages in precordial leads Abnormal ECG NO PREVIOUS TRACING DOCTOR: Colt Singh Interpretating Date/Time 01/27/2017 11:13:20
[2017-01-27 11:22] LABS: BLOOD GAS BASE EXCESS -4.5 mmol/L (-2-2); BLOOD GAS CARBOXYHEMOGLOBIN 1.9 % (0-4); BLOOD GAS HCO3 21 mmol/L (22-26); BLOOD GAS O2 HGB SATURATION 90 % (90-100); BLOOD GAS OXYGEN CONTENT 12.3 Vol % (12.0-20.0); BLOOD GAS PCO2 42 mmHg (38-42); BLOOD GAS PO2 68 mmHg (61-120); BLOOD GAS TOTAL HGB 9.7 G/DL (12.0-16.0); CRITICAL VALUE NO; OXYGEN DEVICE VENTILATOR; TEMP CORR TO 98.6
[2017-01-27 11:23] LABS: DRAW SITE ART LINE; FIO2 50 %; STAT NO; ULNAR PULSE PRESENT
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
[2017-01-27] MEDS: NOREPINEPHRINE INJ 4 MG in SODIUM CHLOR 0.9% 250 ML INJ 246 ML IV SCH ×2 (11:59→23:09)
[2017-01-27 16:07] LABS: BLOOD GAS BASE EXCESS -4.6 mmol/L (-2-2); BLOOD GAS CARBOXYHEMOGLOBIN 1.9 % (0-4); BLOOD GAS HCO3 21 mmol/L (22-26); BLOOD GAS O2 HGB SATURATION 89 % (90-100); BLOOD GAS OXYGEN CONTENT 13.2 Vol % (12.0-20.0); BLOOD GAS PCO2 48 mmHg (38-42); BLOOD GAS PO2 68 mmHg (61-120); BLOOD GAS TOTAL HGB 10.5 G/DL (12.0-16.0); TEMP CORR TO 98.6
[2017-01-27 16:08] LABS: CRITICAL VALUE YES; OXYGEN DEVICE VENTILATOR
[2017-01-27 16:09] LABS: DRAW SITE ART LINE; FIO2 60 %; STAT NO; ULNAR PULSE PRESENT
[2017-01-27] MEDS: cefTRIAXone INJ 1,000 MG in SODIUM CHLORIDE 0.9% INJ 100 ML IV SCH (16:51)
[2017-01-27] MEDS ORDERED: fentaNYL CITRATE 250 MCG/5 ML AMP ONE (19:59)
[2017-01-27] MEDS ORDERED: MIDAZOLAM HCL 2 MG/2 ML VIAL ONE (20:00)
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
[2017-01-28] VITALS (18 sets, daily range): BP systolic 112–156; BP diastolic 54–72; PULSE 84–110; RESP 22–25; TEMP 99.3–100.6; O2SAT 92–100
[2017-01-28] MEDS: MIDAZOLAM 100 MG/ML INJ 100 ML IV SCH ×2 (00:16→07:34)
[2017-01-28] MEDS: SODIUM CHLOR 0.9% 1000 ML INJ 1,000 ML IV SCH ×3 (03:15→23:15)
[2017-01-28] MEDS: PROPOFOL 1000 MG/100 ML INJ 100 ML IV SCH ×4 (03:24→07:34)
[2017-01-28] MEDS: CHLORHEXIDINE GLUCONATE 2 % 1 PACK (2 CLOTHS) TOP SCH (04:00)
[2017-01-28] MEDS: RESP: ALBUTEROL 2.5 MG/IPRATROPIUM 0.5 MG NEB (SCH) INH ×4 (04:15→20:26)
[2017-01-28] MEDS: NOREPINEPHRINE INJ 4 MG in SODIUM CHLOR 0.9% 250 ML INJ 246 ML IV SCH ×2 (04:44→18:16)
[2017-01-28 05:37] LABS: BLOOD GAS BASE EXCESS -3.7 mmol/L (-2-2); BLOOD GAS CARBOXYHEMOGLOBIN 1.8 % (0-4); BLOOD GAS HCO3 22 mmol/L (22-26); BLOOD GAS METHEMOGLOBIN 1.1 % (0-2); BLOOD GAS O2 HGB SATURATION 92 % (90-100); BLOOD GAS OXYGEN CONTENT 12.7 Vol % (12.0-20.0); BLOOD GAS PCO2 45 mmHg (38-42); BLOOD GAS PO2 75 mmHg (61-120); BLOOD GAS TOTAL HGB 9.8 G/DL (12.0-16.0); CRITICAL VALUE NO; OXYGEN DEVICE VENTILATOR; TEMP CORR TO 98.6
[2017-01-28 05:39] LABS: DRAW SITE ALINE; FIO2 70 %
[2017-01-28 05:40] LABS: STAT NO
[2017-01-28] MEDS: fentaNYL DRIP 250 ML IV SCH (05:51)
[2017-01-28] MEDS: INSULIN NovoLIN REGULAR SUPPLEMENTAL SCALE SQ SCH ×5 (06:00→23:55)
[2017-01-28 06:08] LABS: ALKALINE PHOSPHATASE 45 U/L (45-117); ALT (GPT) 15 U/L (12-78); ANION GAP 7 MEQ/L (5-15); AST (GOT) 11 U/L (15-37); BICARBONATE 25.1 MEQ/L (21.0-32.0); BLOOD UREA NITROGEN 15 MG/DL (7-18); CHLORIDE 126 MEQ/L (98-107); GLOMERULAR FILTRATION RATE 97 ML/MIN (>89); MAGNESIUM 1.7 MG/DL (1.5-2.5); POTASSIUM 3.3 MEQ/L (3.5-5.1); TOTAL BILIRUBIN ADULT 0.8 MG/DL (0.2-1.0)
[2017-01-28 06:10] LABS: SODIUM (NA) 158 MEQ/L (136-145)
--- NOTE | 2017-01-28 06:13 | RADRPT ---
EXAM DATE/TIME: 01/28/2017 04:50 [facility] COMPARISON: CHEST SINGLE AP, January 27, 2017, 4:31. INDICATIONS : Shortness of breath, possible pulmonary disease. MEDICAL HISTORY : None. SURGICAL HISTORY : None. ENCOUNTER: Subsequent ACUITY: 1 week PAIN SCORE: Non-responsive. LOCATION: Bilateral chest FINDINGS: A single portable frontal view of the chest is blurred by motion artifact. Bibasilar pulmonary infilt rates are unchanged. Heart remains mildly enlarged. Tip of the endotracheal tube is obscured by an el ectronic device overlying the patient. Left subclavian central line and nasogastric tube noted. Media n sternotomy wires. CONCLUSION: Bibasilar pulmonary infiltrates without change. Haroon Zepeda Jr., MD on January 28, 2017 at 6:10 Board Certified Radiologist. This report was verified electronically.
[2017-01-28] MEDS: POTASSIUM CHLOR 20 MEQ PREMIX 100 ML IV PRN ×2 (06:52→06:53)
[2017-01-28 07:31] LABS: AUTOMATED NEUTROPHIL # 6.4 TH/MM3 (1.8-7.7); BASOPHIL % 0.4 % (0.0-2.0); EOSINOPHIL # 0.3 TH/MM3 (0-0.4); HEMATOCRIT 29.3 % (39.0-51.0); LYMPH % 6.6 % (9.0-44.0); LYMPHOCYTE # 0.5 TH/MM3 (1.0-4.8); MEAN CELL VOLUME 86.6 FL (80.0-100.0); MEAN CORPUSCULAR HEMOGLOBIN 29.2 PG (27.0-34.0); MEAN CORPUSCULAR HGB CONC 33.7 % (32.0-36.0); MONO % 10.6 % (0.0-8.0); NEUT % 78.4 % (16.0-70.0); PLATELET COUNT 94 TH/MM3 (150-450); RED BLOOD COUNT 3.38 MIL/MM3 (4.50-5.90); RED CELL DISTRIBUTION WIDTH 14.8 % (11.6-17.2); WHITE BLOOD COUNT 8.2 TH/MM3 (4.0-11.0)
[2017-01-28] MEDS: CHLORHEXIDINE 0.12% (ORAL KIT) 15 ML CUP MT SCH ×2 (07:33→20:43)
[2017-01-28] MEDS: PANTOPRAZOLE SODIUM 40 MG VIAL IV SCH (07:33)
[2017-01-28] MEDS: SODIUM CHLORIDE 0.9% FLUSH 5 ML FLUSH IVF SCH ×2 (07:33→20:43)
[2017-01-28] MEDS: LACTULOSE SYRUP 20 GM/30 ML CUP PO SCH (07:33)
[2017-01-28] MEDS: levETIRAcetam INJ 500 MG in SODIUM CHLORIDE 0.9% INJ 100 ML IV SCH ×2 (07:33→20:43)
[2017-01-28] MEDS: DOCUSATE SODIUM 50 MG/SENNA 8.6 MG TAB PO SCH ×2 (07:34→20:43)
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
[2017-01-28 08:25] LABS: HEMO FLAGS AUTO DIFF
[2017-01-28] MEDS ORDERED: LIDOCAINE HCL 2% 100 MG/5 ML SYRINGE OTHER ONE (08:45)
[2017-01-28] MEDS ORDERED: CISATRACURIUM BESYLATE 200 MG/20 ML VIAL IV ONE (09:00)
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
[2017-01-28] MEDS ORDERED: CISATRACURIUM BESYLATE 10 MG/5 ML VIAL IV ONE (10:00)
[2017-01-28] MEDS ORDERED: CISATRACURIUM BESYLATE 20 MG/10 ML VIAL IV ONE (10:00)
[2017-01-28 10:33] LABS: BANDS 44 % (0-6); CORRECTED NUCLEATED RBC 1 /100 WBC (0-0); EOSINOPHILS 8 % (0-4); NEUTROPHIL # MANUAL DIFF 6.7 TH/MM3 (1.8-7.7); POLYS (SEG NEUTROPHILS) 38 % (16-70); WBC DIFF SAMPLE 100
[2017-01-28 10:34] LABS: PLATELET ESTIMATE SMEAR LOW (NORMAL); PLATELET MORPHOLOGY NORMAL (NORMAL); SCAN/DIFF FINAL DIFF MANUAL
[2017-01-28] MEDS: ACETAMINOPHEN 325 MG TAB PO PRN (11:20)
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
[2017-01-28 12:44] LABS: BLOOD GAS BASE EXCESS -2.9 mmol/L (-2-2); BLOOD GAS CARBOXYHEMOGLOBIN 1.6 % (0-4); BLOOD GAS HCO3 23 mmol/L (22-26); BLOOD GAS METHEMOGLOBIN 0.9 % (0-2); BLOOD GAS O2 HGB SATURATION 93 % (90-100); BLOOD GAS OXYGEN CONTENT 13.6 Vol % (12.0-20.0); BLOOD GAS PCO2 47 mmHg (38-42); BLOOD GAS PO2 79 mmHg (61-120); BLOOD GAS TOTAL HGB 10.3 G/DL (12.0-16.0); TEMP CORR TO 98.6
[2017-01-28 12:45] LABS: CRITICAL VALUE NO; DRAW SITE ART LINE; FIO2 70 %; OXYGEN DEVICE VENTILATOR; STAT YES; VENT SETTINGS PRVC 500/24/1.0 PE14
--- NOTE | 2017-01-28 13:00 | PD.PROCEDR ---
Procedure Note Procedure Procedure: Diagnostic Fiberoptic Bronchoscopy Diagnosis: Traumatic brain injury Indications: Patient is a 76-year-old male status post TBI with worsening acute hypoxic respiratory failure. Per nursing and respiratory therapy reports, there has been increase in tenacious thick secretions that they're unable to aspirate with [place]. Chest x-ray continues to worsen with bibasilar infiltrates. Diagnostic fiberoptic bronchoscopy planned to evaluate the nature of the secretions and attempt to aspirate about to improve hypoxemia Consent: Written consent was obtained Anesthesia: Propofol, fentanyl IV, cisatracurium IV Description of the Procedure: The patient was sedated and mechanically ventilated. The patient was placed on 100% FIO2 and a volume control mode of ventilation. The fiberoptic bronchoscopy was inserted via 8.0 oral endotracheal tube. The trachea, right and left mainstem bronchi, and sub- segmental bronchi were evaluated. The endobronchial anatomy was normal. Findings: Minimal white secretions, mostly at the gayathri, some in the right lower lobe. These are thickened tenacious, but they are also rather scant and likely not the cause of his worsening hypoxemia BAL samples: No samples were sent. Patient's ICP was monitored throughout the procedure and never joão above 7. The patient tolerated the procedure well with no hemodynamic instability or hypoxia. There were no immediate complications noted. At the conclusion of the procedure, the patient was placed back on their pre-procedure ventilatory settings. There was minimal EBL. A chest x-ray has been ordered. I personally performed the procedure. Lul Orozco MD Jan 28, 2017 13:00
[2017-01-28] MEDS: cefTRIAXone INJ 1,000 MG in SODIUM CHLORIDE 0.9% INJ 100 ML IV SCH (14:30)
[2017-01-29] VITALS (18 sets, daily range): BP systolic 119–154; BP diastolic 60–71; PULSE 104–118; RESP 25–30; TEMP 100–101.3; O2SAT 94–99
[2017-01-29] MEDS: PROPOFOL 1000 MG/100 ML INJ 100 ML IV SCH ×4 (02:58→20:53)
[2017-01-29] MEDS: RESP: ALBUTEROL 2.5 MG/IPRATROPIUM 0.5 MG NEB (SCH) INH ×4 (03:44→20:26)
[2017-01-29] MEDS: CHLORHEXIDINE GLUCONATE 2 % 1 PACK (2 CLOTHS) TOP SCH (04:00)
[2017-01-29 05:19] LABS: AUTOMATED NEUTROPHIL # 4.6 TH/MM3 (1.8-7.7); BASOPHIL % 0.6 % (0.0-2.0); EOSINOPHIL # 0.2 TH/MM3 (0-0.4); EOSINOPHIL % 3.2 % (0.0-4.0); HEMATOCRIT 27.8 % (39.0-51.0); LYMPH % 9.8 % (9.0-44.0); LYMPHOCYTE # 0.6 TH/MM3 (1.0-4.8); MEAN CELL VOLUME 86.3 FL (80.0-100.0); MEAN CORPUSCULAR HEMOGLOBIN 29.8 PG (27.0-34.0); MEAN CORPUSCULAR HGB CONC 34.5 % (32.0-36.0); MONO % 8.9 % (0.0-8.0); NEUT % 77.5 % (16.0-70.0); PLATELET COUNT 98 TH/MM3 (150-450); RED BLOOD COUNT 3.22 MIL/MM3 (4.50-5.90); RED CELL DISTRIBUTION WIDTH 15.1 % (11.6-17.2); WHITE BLOOD COUNT 5.9 TH/MM3 (4.0-11.0)
[2017-01-29 05:21] LABS: HEMO FLAGS AUTO DIFF
[2017-01-29 05:51] LABS: BLOOD GAS BASE EXCESS -1.9 mmol/L (-2-2); BLOOD GAS CARBOXYHEMOGLOBIN 1.7 % (0-4); BLOOD GAS HCO3 22 mmol/L (22-26); BLOOD GAS METHEMOGLOBIN 0.7 % (0-2); BLOOD GAS O2 HGB SATURATION 96 % (90-100); BLOOD GAS OXYGEN CONTENT 12.4 Vol % (12.0-20.0); BLOOD GAS PCO2 37 mmHg (38-42); BLOOD GAS PO2 94 mmHg (61-120); BLOOD GAS TOTAL HGB 9.1 G/DL (12.0-16.0); CRITICAL VALUE NO; FIO2 50 %; OXYGEN DEVICE VENTILATOR; TEMP CORR TO 98.6; VENT SETTINGS 24/550/ 14 PEEP
[2017-01-29 05:51] LABS: ALKALINE PHOSPHATASE 49 U/L (45-117); ALT (GPT) 15 U/L (12-78); ANION GAP 8 MEQ/L (5-15); AST (GOT) 17 U/L (15-37); BICARBONATE 27.3 MEQ/L (21.0-32.0); BLOOD UREA NITROGEN 25 MG/DL (7-18); CHLORIDE 123 MEQ/L (98-107); GLOMERULAR FILTRATION RATE 91 ML/MIN (>89); MAGNESIUM 2.1 MG/DL (1.5-2.5); POTASSIUM 3.4 MEQ/L (3.5-5.1); TOTAL BILIRUBIN ADULT 0.7 MG/DL (0.2-1.0)
[2017-01-29 05:52] LABS: DRAW SITE ALINE; STAT NO
--- NOTE | 2017-01-29 05:57 | RADRPT ---
EXAM DATE/TIME: 01/29/2017 04:38 [place] COMPARISON: CHEST SINGLE AP, January 28, 2017, 4:50. INDICATIONS : Shortness of breath, possible pulmonary disease. MEDICAL HISTORY : None. SURGICAL HISTORY : None. ENCOUNTER: Subsequent ACUITY: 1 week PAIN SCORE: Non-responsive. LOCATION: Bilateral chest FINDINGS: A single view of the chest demonstrates bilateral pulmonary opacities and bilateral pleural effusions , unchanged. Heart normal size. Previous median sternotomy. Endotracheal tube and nasogastric tube ap pear unchanged. Osseous structures are intact. CONCLUSION: Bilateral pulmonary opacities and pleural effusions are unchanged. Declan Hoffman MD on January 29, 2017 at 5:55 Board Certified Radiologist. This report was verified electronically.
[2017-01-29] MEDS: INSULIN NovoLIN REGULAR SUPPLEMENTAL SCALE SQ SCH ×3 (06:00→18:00)
[2017-01-29 06:20] LABS: SODIUM (NA) 158 MEQ/L (136-145)
[2017-01-29 06:48] LABS: BANDS 18 % (0-6); BASOPHILS 1 % (0-2); EOSINOPHILS 4 % (0-4); NEUTROPHIL # MANUAL DIFF 4.6 TH/MM3 (1.8-7.7); POLYS (SEG NEUTROPHILS) 60 % (16-70); WBC DIFF SAMPLE 100
[2017-01-29 06:49] LABS: PLATELET ESTIMATE SMEAR LOW (NORMAL); PLATELET MORPHOLOGY NORMAL (NORMAL); SCAN/DIFF FINAL DIFF MANUAL
[2017-01-29] MEDS: ACETAMINOPHEN 325 MG TAB PO PRN ×2 (07:02→20:54)
[2017-01-29] MEDS: LACTULOSE SYRUP 20 GM/30 ML CUP PO SCH (08:03)
[2017-01-29] MEDS: PANTOPRAZOLE SODIUM 40 MG VIAL IV SCH (08:03)
[2017-01-29] MEDS: levETIRAcetam INJ 500 MG in SODIUM CHLORIDE 0.9% INJ 100 ML IV SCH ×2 (08:03→20:54)
[2017-01-29] MEDS: DOCUSATE SODIUM 50 MG/SENNA 8.6 MG TAB PO SCH ×2 (08:04→20:54)
[2017-01-29] MEDS: CHLORHEXIDINE 0.12% (ORAL KIT) 15 ML CUP MT SCH ×2 (08:04→20:55)
[2017-01-29] MEDS: SODIUM CHLORIDE 0.9% FLUSH 5 ML FLUSH IVF SCH ×2 (08:04→20:55)
[2017-01-29] MEDS ORDERED: FUROSEMIDE 20 MG/2 ML VIAL IV PUSH SCH (09:00)
[2017-01-29] MEDS ORDERED: METOPROLOL TARTRATE 25 MG TAB OG-TUBE SCH (09:15)
[2017-01-29] MEDS ORDERED: PILL SPLITTER OTHER PRN (09:15)
[2017-01-29 10:42] LABS: CRITICAL VALUE YES
[2017-01-29] MEDS: METOPROLOL TARTRATE 25 MG TAB OG-TUBE SCH ×2 (10:56→18:24)
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
[2017-01-29] MEDS: DIGOXIN 0.5 MG/2 ML VIAL IV PUSH SCH (12:42)
[2017-01-29] MEDS: cefTRIAXone INJ 1,000 MG in SODIUM CHLORIDE 0.9% INJ 100 ML IV SCH (14:33)
[2017-01-29] MEDS: ACETAMINOPHEN 1000 MG/100 ML VIAL IV PRN (14:33)
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
--- NOTE | 2017-01-29 15:34 | PD.CONS ---
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 brother: [phone] * Inga Thomas, CB: [phone] * Edi Thomas, brother: . Prognosis Overall prognosis appears poor for meaningful recovery given extent of brain injury and comorbidities. . Code Status: No Code Plan * Patient is incapacitated, unlikely he will regain capacity. It appears there has been some confusion regarding legal decision maker. To clarify, patient has completed written advanced directives, Living Will and Health Care Power of Production Miner on chart. He has named his niNasima parker as primary HCS and niRazia parker as alternate HCS. 01/29/17 - Nasima Barcenas then indicates she IS willing to serve as health care power of machine load clerk per her uncles (Janette Thomas) previously written directive. Faxed LW and HCPOA to HIM to be scanned into EMR, copy on chart. * NO CODE * 01/29/17 - Spoke with Nasima arango via telephone. Review of [place] statutes regarding legal decision making. She wants to serve as Health care Power of Production Miner per written advanced directives. Medical update provided. Explained likely need for decisions regarding trach/PEG vs. transition to comfort measures in the coming days. She reports she plans to come to [place] later this week (Sunday, maybe sooner) and hopes decision can wait until she arrives. I will discuss with medical team. * Discussed with nurse, Rosanna and director case management, Silvana. * SYMPTOMS: Dyspnea: on mech vent Fi)2 50%, PEEP 14. respirations appear unlabored today. Pain: sources include recent trauma, surgeries, brain injury, mech vent etc. On Fentanyl drip, will monitor. 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 Resistor Coater continues to attempt to wean off all sedation, currently on low dose. * Palliative care contact information provided. * Palliative care will continue to follow to assist with further clarification of treatment goals. . Time Spent Total Floor Time (mins): 60 Face to Face Time (mins): 35 >50% Counseling/Coord of Care: Yes Thank you for the opportunity to participate in the care of Mr. Thomas. Attestation To help prompt me to consider important information that might be impacting today's encounter and assessment, information from prior notes written by myself or my colleagues may have been "brought forward" into today's note. My signature on this note, however, is an attestation that I personally performed the exam, history, and/or decision-making noted today, and, unless otherwise indicated, the interactions with patient, family, and staff as well as the review of records all occurred today. I also attest that the listed assessment and stated plan reflect my best clinical judgment today based on the combination of historical information, prior notes, and today's exam/ interactions. When time spent is documented, it refers only to time spent today by the signer, or if indicated, combined time spent today by collaborating physician/nurse practitioner. LEWIS RINCON Jan 29, 2017 14:39
[2017-01-29 16:37] LABS: BLOOD GAS CARBOXYHEMOGLOBIN 1.5 % (0-4); BLOOD GAS HCO3 25 mmol/L (22-26); BLOOD GAS METHEMOGLOBIN 0.8 % (0-2); BLOOD GAS O2 HGB SATURATION 95 % (90-100); BLOOD GAS OXYGEN CONTENT 12.7 Vol % (12.0-20.0); BLOOD GAS PCO2 41 mmHg (38-42); BLOOD GAS PO2 84 mmHg (61-120); BLOOD GAS TOTAL HGB 9.5 G/DL (12.0-16.0); TEMP CORR TO 98.6
[2017-01-29 16:38] LABS: CRITICAL VALUE NO; OXYGEN DEVICE VENTILATOR
[2017-01-29 16:39] LABS: DRAW SITE ART LINE; FIO2 50 %
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
[2017-01-29] MEDS: fentaNYL DRIP 250 ML IV SCH (20:55)
[2017-01-30] VITALS (21 sets, daily range): BP systolic 126–158; BP diastolic 66–84; PULSE 100–128; RESP 24–26; TEMP 100.6–101.1; O2SAT 95–100
[2017-01-30] MEDS: METOPROLOL TARTRATE 25 MG TAB OG-TUBE SCH ×5 (00:49→23:17)
[2017-01-30] MEDS: PROPOFOL 1000 MG/100 ML INJ 100 ML IV SCH ×4 (01:18→22:12)
[2017-01-30] MEDS: ACETAMINOPHEN 1000 MG/100 ML VIAL IV PRN ×2 (02:45→20:25)
[2017-01-30] MEDS: RESP: ALBUTEROL 2.5 MG/IPRATROPIUM 0.5 MG NEB (SCH) INH ×4 (03:36→20:26)
[2017-01-30] MEDS: CHLORHEXIDINE GLUCONATE 2 % 1 PACK (2 CLOTHS) TOP SCH (04:00)
[2017-01-30 04:09] LABS: AUTOMATED NEUTROPHIL # 6.1 TH/MM3 (1.8-7.7); BASOPHIL % 0.4 % (0.0-2.0); EOSINOPHIL # 0.3 TH/MM3 (0-0.4); EOSINOPHIL % 3.3 % (0.0-4.0); HEMATOCRIT 28.4 % (39.0-51.0); LYMPH % 12.4 % (9.0-44.0); MEAN CELL VOLUME 86.3 FL (80.0-100.0); MEAN CORPUSCULAR HEMOGLOBIN 29.4 PG (27.0-34.0); MONO % 8.7 % (0.0-8.0); NEUT % 75.2 % (16.0-70.0); PLATELET COUNT 108 TH/MM3 (150-450); RED BLOOD COUNT 3.29 MIL/MM3 (4.50-5.90); RED CELL DISTRIBUTION WIDTH 14.7 % (11.6-17.2); WHITE BLOOD COUNT 8.1 TH/MM3 (4.0-11.0)
[2017-01-30 04:12] LABS: HEMO FLAGS AUTO DIFF
[2017-01-30 04:43] LABS: ALKALINE PHOSPHATASE 54 U/L (45-117); ALT (GPT) 18 U/L (12-78); ANION GAP 6 MEQ/L (5-15); AST (GOT) 18 U/L (15-37); BLOOD UREA NITROGEN 31 MG/DL (7-18); CHLORIDE 122 MEQ/L (98-107); GLOMERULAR FILTRATION RATE 94 ML/MIN (>89); MAGNESIUM 2.3 MG/DL (1.5-2.5); POTASSIUM 3.8 MEQ/L (3.5-5.1); TOTAL BILIRUBIN ADULT 0.6 MG/DL (0.2-1.0)
[2017-01-30 04:48] LABS: SODIUM (NA) 157 MEQ/L (136-145)
--- NOTE | 2017-01-30 05:04 | RADRPT ---
EXAM DATE/TIME: 01/30/2017 04:44 [facility] COMPARISON: No previous studies available for comparison. INDICATIONS : Follow up hemorrhage. RADIATION DOSE: 51.85 CTDIvol (mGy) MEDICAL HISTORY : Non-responsive. SURGICAL HISTORY : Non-responsive. ENCOUNTER: Subsequent ACUITY: 1 week PAIN SCALE: Non-responsive LOCATION: cranial TECHNIQUE: Multiple contiguous axial images were obtained of the head. Using automated exposure control and adj ustment of the mA and/or kV according to patient size, radiation dose was kept as low as reasonably a chievable to obtain optimal diagnostic quality images. FINDINGS: There are evolving parenchymal hemorrhages in the right frontal lobe and right temporal lobe with ágnel rounding edema. There is extensive extra-axial hemorrhage overlying the tentorium as well as in the b asilar cisterns and over both convexities. Intraventricular hemorrhage is again noted. There is place ment of a left frontal ventriculostomy tube with tip near foramen of Robles. Pneumocephalus again not ed anteriorly on the left. Again seen is mastoid fluid, left greater than right and left temporal bone fracture extending into t he left calvarium. Opacification left sphenoid sinus. CONCLUSION: Evolving parenchymal hemorrhages in the right frontal lobe and right temporal lobe with extensive ext ra-axial hemorrhage again noted. No change in mass effect or shift. No hydrocephalus. Left frontal ve ntriculostomy tip at foramen of [place]ro. Bashir Coughlin MD on January 30, 2017 at 4:59 Board Certified Radiologist. This report was verified electronically.
[2017-01-30 05:34] LABS: BLOOD GAS CARBOXYHEMOGLOBIN 1.7 % (0-4); BLOOD GAS HCO3 27 mmol/L (22-26); BLOOD GAS METHEMOGLOBIN 0.8 % (0-2); BLOOD GAS O2 HGB SATURATION 92 % (90-100); BLOOD GAS OXYGEN CONTENT 12.5 Vol % (12.0-20.0); BLOOD GAS PCO2 40 mmHg (38-42); BLOOD GAS PO2 69 mmHg (61-120); BLOOD GAS TOTAL HGB 9.6 G/DL (12.0-16.0); CRITICAL VALUE NO; OXYGEN DEVICE VENTILATOR; TEMP CORR TO 98.6
[2017-01-30 05:35] LABS: DRAW SITE ART LINE; FIO2 50 %; NUMBER OF ARTERIAL PUNCTURES 0; STAT NO
[2017-01-30] MEDS: INSULIN NovoLIN REGULAR SUPPLEMENTAL SCALE SQ SCH ×5 (05:43→23:17)
--- NOTE | 2017-01-30 06:36 | RADRPT ---
EXAM DATE/TIME: 01/30/2017 05:01 [facility] COMPARISON: CHEST SINGLE AP, January 29, 2017, 4:38. INDICATIONS : Shortness of breath. MEDICAL HISTORY : None. SURGICAL HISTORY : None. ENCOUNTER: Subsequent ACUITY: 1 week PAIN SCORE: Non-responsive. LOCATION: Bilateral chest FINDINGS: Endotracheal tube tip in satisfactory position. NG enters stomach. Left central line in superior vena cava. Left basilar and perihilar airspace disease present. Trace left pleural fluid. CONCLUSION: 1. Endotracheal tube, nasogastric tube and left central line in satisfactory position. Left-sided bas ilar airspace disease similar to January 29. Bashir Coughlin MD on January 30, 2017 at 6:34 Board Certified Radiologist. This report was verified electronically.
[2017-01-30 07:19] LABS: BANDS 17 % (0-6); EOSINOPHILS 2 % (0-4); METAMYELOCYTES 1 % (0-1); MYELOCYTES 1 % (0-0); NEUTROPHIL # MANUAL DIFF 7.2 TH/MM3 (1.8-7.7); PLATELET ESTIMATE SMEAR LOW (NORMAL); PLATELET MORPHOLOGY NORMAL (NORMAL); POLYS (SEG NEUTROPHILS) 70 % (16-70); WBC DIFF SAMPLE 100
[2017-01-30 07:20] LABS: SCAN/DIFF FINAL DIFF MANUAL
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
--- NOTE | 2017-01-30 08:30 | HHI.HCPN ---
Call from sister in law, February on 01/29/17 at 9:45pm stating the family was told I requested a family meeting. I reviewed my earlier conversation with Nasima ( GRANT) and that I would be available to meet with family anytime. She requested meeting 01/30/17 at 5pm, I explained meeting would need to be done earlier in the day. She said she would speak with family and let me know. Call from 01/30/17 at 8:20am to request family meeting with patient brothers, CB (in person) and GRANT (Nasima via phone) today at 12noon. We agreed to meet. She requests Dr. Villalobos be there as they want to speak with the doctor. I will request Dr. Webb be present if possible. If not I explained I should be able to answer their questions and will speak with the doctors prior to our meeting. LEWIS RINCON Jan 30, 2017 08:30
[2017-01-30] MEDS: DOCUSATE SODIUM 50 MG/SENNA 8.6 MG TAB PO SCH ×2 (09:00→20:23)
[2017-01-30] MEDS: LACTULOSE SYRUP 20 GM/30 ML CUP PO SCH (09:00)
[2017-01-30] MEDS: levETIRAcetam INJ 500 MG in SODIUM CHLORIDE 0.9% INJ 100 ML IV SCH ×2 (10:05→20:23)
[2017-01-30] MEDS: PANTOPRAZOLE SODIUM 40 MG VIAL IV SCH (10:05)
[2017-01-30] MEDS: DIGOXIN 0.5 MG/2 ML VIAL IV PUSH SCH (10:06)
[2017-01-30] MEDS: SODIUM CHLORIDE 0.9% FLUSH 5 ML FLUSH IVF SCH ×2 (10:06→20:23)
[2017-01-30] MEDS: CHLORHEXIDINE 0.12% (ORAL KIT) 15 ML CUP MT SCH ×2 (10:07→20:22)
[2017-01-30] MEDS: ACETAMINOPHEN 325 MG TAB PO PRN (10:24)
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
--- NOTE | 2017-01-30 11:33 | HHI.HCPN ---
Reason for visit a. To assist with evaluation and management of symptoms including: encephalopathy, dyspnea. b. To assist medical decision maker(s) with: better understanding of current medical conditions; weighing benefits/burdens of medical treatment options; making medical treatment decisions. . Subjective/Interval History Patient seen and examined in ICU. Discussed with nurse, Dr. Villalobos and Dr. Rosa. No family at bedside during my exam. Patient is off propofol, remains on Fentanyl drip 150 increased dosing this morning per nurse due to increased ICP, BP and tachycardia after Propofol stopped. CBC stable. Sodium 157, serum osmolality 324. Albumin 1.7, tube feeding at 20cc / hr. 01/25/17 Sputum culture + Staph Aureus and Klebsiella pneumoniae. Persistent fevers, ice packs in place. Getting IV Acetaminophen PRN. Tmax 101.3. Remains on Ceftriaxone. 01/30/17 chest x-ray with unchanged left sided basilar airspace disease. Repeat head CT with evolving parenchymal hemorrhages in the right frontal lobe with extensive extra-axial hemorrhage again noted, left ventriculostomy, no hydrocephalus. Neurology notes indicate no neurologic improvement. In speaking with Dr. Villalobos and Dr. Rosa prognosis is poor for meaningful recovery. Family meeting planned at 12noon. . Family/friend interactions Family meeting with 2 brothers (MEMO and Edi), sister in law (February) in consult room and niece (GRANT Del Real) via telephone for 75 minutes. Lengthy conversation regarding entire hospital course, medical conditions, prognosis and options to continue aggressive care (Including trach and PEG) vs transition to comfort measures. Nasima will be arriving in town 01/31/17. Family seems to be leaning toward transition to comfort measures, though have not definitively decided. Questions answered to their satisfaction. Palliative care number provided. . Advance Directives Living Will: Copy in medical record Health Care Surrogate: Copy in medical record Advance Directive Specifics Date completed: 08/08/16 . Health Care Surrogate(s): Health care Power of Manager Of Clinical: Primary - Nasima Barcenas (niece) Alternate: Johnna Perez (niece) . Documented care wishes: Living Will states should his attending MD document that he have an incurable injury, disease or illness and would occur in a short time and use of life prolonging procedures be withheld or withdrawn and that he be permitted to naturally and that he does not want to receive artificial nutrition or hydration. . Significant change in goals: NO CODE. Family meeting with 2 brothers (MEMO and Edi), sister in law (February) in consult room and niece (Nasima, GRANT) via telephone for 75 minutes. Lengthy conversation regarding entire hospital course, medical conditions, prognosis and options to continue aggressive care (Including trach and PEG) vs transition to comfort measures. Nasima will be arriving in town 01/31/17. Family seems to be leaning toward transition to comfort measures, though have not definitively decided. Questions answered to their satisfaction. Palliative care number provided. . Objective Vital Signs Date Time Temp Pulse Resp B/P Pulse Ox O2 Delivery O2 Flow Rate FiO2 01/30/17 10:00 110 01/30/17 08:36 95 50 01/30/17 08:00 105 01/30/17 08:00 100 01/30/17 06:00 103 01/30/17 04:40 100 100 01/30/17 04:20 96 50 01/30/17 04:00 109 01/30/17 04:00 100.6 109 26 151/69 96 01/30/17 04:00 50 01/30/17 03:36 96 50 01/30/17 02:00 109 01/30/17 01:15 98 50 01/30/17 00:00 100.9 116 142/66 01/30/17 00:00 50 01/30/17 00:00 116 01/29/17 22:00 118 01/29/17 20:27 96 50 01/29/17 20:00 101.3 114 25 154/71 97 01/29/17 20:00 50 01/29/17 20:00 114 01/29/17 18:00 117 01/29/17 16:04 98 50 01/29/17 16:00 105 01/29/17 16:00 50 01/29/17 16:00 100.4 105 28 119/63 94 01/29/17 14:00 110 01/29/17 12:34 97 50 01/29/17 12:32 97 50 01/29/17 12:00 50 01/29/17 12:00 104 01/29/17 12:00 100.0 104 27 131/63 96 Intake & Output 01/30/17 01/30/17 07:00 19:00 Intake Total 1727 ml Output Total 1266 ml Balance 461 ml Intake IV Total 780 ml Tube Feeding 687 ml Other 260 ml Output Urine Total 1150 ml Drainage Total 116 ml # Bowel Movements 1 Physical Exam CONSTITUTIONAL/GENERAL: This is an elderly, critically ill patient, on [facility] vent. TUBES/LINES/DRAINS: ventriculostomy, ETT, OG, left subclavian central line, bilateral soft wrist restraints, Worrell, SCDs SKIN: Ice packs. No jaundice, rashes, or lesions. Ecchymoses on upper extremities. Skin tears bilateral UE. Skin temperature appropriate. Not diaphoretic. HEAD: Ventriculostomy. EYES: Pupils pinpoint, fixed. CARDIOVASCULAR: Tachycardic, rate 117. RESPIRATORY/CHEST: Symmetric, unlabored respirations on vent. Course breath sounds bilaterally. GASTROINTESTINAL: Abdomen soft, distended. Bowel sounds present. GENITOURINARY: Without palpable bladder distension. Worrell catheter in place, dark tea colored urine. MUSCULOSKELETAL: Extremities with upper and lower extremity edema. NEUROLOGICAL: Does not awaken to voice or noxious stimuli. No spontaneous movements noted. PSYCHIATRIC: Sedated. . Diagnostic Tests Laboratory Laboratory Tests Test 01/27/17 01/27/17 01/28/17 01/28/17 16:01 18:00 01:00 05:25 Blood Gas Puncture Site ART LINE MARIKA Blood Gas Patient Temperature 98.6 98.6 Blood Gas HCO3 21 mmol/L 22 mmol/L (22-26) (22-26) Blood Gas Base Excess -4.6 mmol/L -3.7 mmol/L (-2-2) (-2-2) Blood Gas Oxygen Saturation 89 % (90-100) 92 % (90-100) Arterial Blood pH 7.27 7.31 (7.380-7.420) (7.380-7.420) Arterial Blood Partial 48 mmHg (38-42) 45 mmHg (38-42) Pressure CO2 Arterial Blood Partial 68 mmHg 75 mmHg Pressure O2 (61-120) (61-120) Arterial Blood Oxygen Content 13.2 Vol % 12.7 Vol % (12.0-20.0) (12.0-20.0) Arterial Blood 1.9 % (0-4) 1.8 % (0-4) Carboxyhemoglobin Arterial Blood Methemoglobin 1.0 % (0-2) 1.1 % (0-2) Blood Gas Hemoglobin 10.5 G/DL 9.8 G/DL (12.0-16.0) (12.0-16.0) Oxygen Delivery Device VENTILATOR VENTILATOR Blood Gas Ventilator Setting SEE COMMENT Blood Gas Inspired Oxygen 60 % 70 % Sodium Level 155 MEQ/L 158 MEQ/L 158 MEQ/L (136-145) (136-145) (136-145) Serum Osmolality 318 MOSM/KG 319 MOSM/KG 322 MOSM/KG (275-295) (275-295) (275-295) White Blood Count 8.2 TH/MM3 (4.0-11.0) Red Blood Count 3.38 MIL/MM3 (4.50-5.90) Hemoglobin 9.9 GM/DL (13.0-17.0) Hematocrit 29.3 % (39.0-51.0) Mean Corpuscular Volume 86.6 FL (80.0-100.0) Mean Corpuscular Hemoglobin 29.2 PG (27.0-34.0) Mean Corpuscular Hemoglobin 33.7 % Concent (32.0-36.0) Red Cell Distribution Width 14.8 % (11.6-17.2) Platelet Count 94 TH/MM3 (150-450) Mean Platelet Volume 9.9 FL (7.0-11.0) Neutrophils (%) (Auto) 78.4 % (16.0-70.0) Lymphocytes (%) (Auto) 6.6 % (9.0-44.0) Monocytes (%) (Auto) 10.6 % (0.0-8.0) Eosinophils (%) (Auto) 4.0 % (0.0-4.0) Basophils (%) (Auto) 0.4 % (0.0-2.0) Neutrophils # (Auto) 6.4 TH/MM3 (1.8-7.7) Lymphocytes # (Auto) 0.5 TH/MM3 (1.0-4.8) Monocytes # (Auto) 0.9 TH/MM3 (0-0.9) Eosinophils # (Auto) 0.3 TH/MM3 (0-0.4) Basophils # (Auto) 0.0 TH/MM3 (0-0.2) CBC Comment AUTO DIFF Differential Total Cells 100 Counted Neutrophils % (Manual) 38 % (16-70) Band Neutrophils % 44 % (0-6) Lymphocytes % 4 % (9-44) Monocytes % 6 % (0-8) Eosinophils % 8 % (0-4) Neutrophils # (Manual) 6.7 TH/MM3 (1.8-7.7) Nucleated Red Blood Cells 1 /100 WBC (0-0) Differential Comment FINAL DIFF MANUAL Platelet Estimate LOW (NORMAL) Platelet Morphology Comment NORMAL (NORMAL) Red Cell Morphology Comment NORMAL (NORMAL) Potassium Level 3.3 MEQ/L (3.5-5.1) Chloride Level 126 MEQ/L (98-107) Carbon Dioxide Level 25.1 MEQ/L (21.0-32.0) Anion Gap 7 MEQ/L (5-15) Blood Urea Nitrogen 15 MG/DL (7-18) Creatinine 0.78 MG/DL (0.60-1.30) Estimat Glomerular Filtration 97 ML/MIN (>89) Rate Random Glucose 121 MG/DL (74-106) Calcium Level 8.3 MG/DL (8.5-10.1) Phosphorus Level 2.5 MG/DL (2.5-4.9) Magnesium Level 1.7 MG/DL (1.5-2.5) Total Bilirubin 0.8 MG/DL (0.2-1.0) Aspartate Amino Transf 11 U/L (15-37) (AST/SGOT) Alanine Aminotransferase 15 U/L (12-78) (ALT/SGPT) Alkaline Phosphatase 45 U/L (45-117) Total Protein 4.9 GM/DL (6.4-8.2) Albumin 1.8 GM/DL (3.4-5.0) Test 01/28/17 01/28/17 01/28/17 01/29/17 12:22 12:35 22:00 00:10 Sodium Level 157 MEQ/L 156 MEQ/L 158 MEQ/L (136-145) (136-145) (136-145) Serum Osmolality 321 MOSM/KG 321 MOSM/KG 323 MOSM/KG (275-295) (275-295) (275-295) Blood Gas Puncture Site ART LINE Blood Gas Patient Temperature 98.6 Blood Gas HCO3 23 mmol/L (22-26) Blood Gas Base Excess -2.9 mmol/L (-2-2) Blood Gas Oxygen Saturation 93 % (90-100) Arterial Blood pH 7.30 (7.380-7.420) Arterial Blood Partial 47 mmHg (38-42) Pressure CO2 Arterial Blood Partial 79 mmHg Pressure O2 (61-120) Arterial Blood Oxygen Content 13.6 Vol % (12.0-20.0) Arterial Blood 1.6 % (0-4) Carboxyhemoglobin Arterial Blood Methemoglobin 0.9 % (0-2) Blood Gas Hemoglobin 10.3 G/DL (12.0-16.0) Oxygen Delivery Device VENTILATOR Blood Gas Ventilator Setting [facility] 500/24/1.0 PE14 Blood Gas Inspired Oxygen 70 % Test 01/29/17 01/29/17 01/29/17 01/29/17 05:00 05:35 12:40 16:25 White Blood Count 5.9 TH/MM3 (4.0-11.0) Red Blood Count 3.22 MIL/MM3 (4.50-5.90) Hemoglobin 9.6 GM/DL (13.0-17.0) Hematocrit 27.8 % (39.0-51.0) Mean Corpuscular Volume 86.3 FL (80.0-100.0) Mean Corpuscular Hemoglobin 29.8 PG (27.0-34.0) Mean Corpuscular Hemoglobin 34.5 % Concent (32.0-36.0) Red Cell Distribution Width 15.1 % (11.6-17.2) Platelet Count 98 TH/MM3 (150-450) Mean Platelet Volume 9.6 FL (7.0-11.0) Neutrophils (%) (Auto) 77.5 % (16.0-70.0) Lymphocytes (%) (Auto) 9.8 % (9.0-44.0) Monocytes (%) (Auto) 8.9 % (0.0-8.0) Eosinophils (%) (Auto) 3.2 % (0.0-4.0) Basophils (%) (Auto) 0.6 % (0.0-2.0) Neutrophils # (Auto) 4.6 TH/MM3 (1.8-7.7) Lymphocytes # (Auto) 0.6 TH/MM3 (1.0-4.8) Monocytes # (Auto) 0.5 TH/MM3 (0-0.9) Eosinophils # (Auto) 0.2 TH/MM3 (0-0.4) Basophils # (Auto) 0.0 TH/MM3 (0-0.2) CBC Comment AUTO DIFF Differential Total Cells 100 Counted Neutrophils % (Manual) 60 % (16-70) Band Neutrophils % 18 % (0-6) Lymphocytes % 7 % (9-44) Monocytes % 10 % (0-8) Eosinophils % 4 % (0-4) Basophils % 1 % (0-2) Neutrophils # (Manual) 4.6 TH/MM3 (1.8-7.7) Differential Comment FINAL DIFF MANUAL Platelet Estimate LOW (NORMAL) Platelet Morphology Comment NORMAL (NORMAL) Red Cell Morphology Comment NORMAL (NORMAL) Sodium Level 158 MEQ/L 158 MEQ/L (136-145) (136-145) Potassium Level 3.4 MEQ/L (3.5-5.1) Chloride Level 123 MEQ/L (98-107) Carbon Dioxide Level 27.3 MEQ/L (21.0-32.0) Anion Gap 8 MEQ/L (5-15) Blood Urea Nitrogen 25 MG/DL (7-18) Creatinine 0.82 MG/DL (0.60-1.30) Estimat Glomerular Filtration 91 ML/MIN (>89) Rate Random Glucose 156 MG/DL (74-106) Serum Osmolality 324 MOSM/KG 325 MOSM/KG (275-295) (275-295) Calcium Level 8.7 MG/DL (8.5-10.1) Phosphorus Level 2.3 MG/DL (2.5-4.9) Magnesium Level 2.1 MG/DL (1.5-2.5) Total Bilirubin 0.7 MG/DL (0.2-1.0) Aspartate Amino Transf 17 U/L (15-37) (AST/SGOT) Alanine Aminotransferase 15 U/L (12-78) (ALT/SGPT) Alkaline Phosphatase 49 U/L (45-117) Total Protein 4.9 GM/DL (6.4-8.2) Albumin 1.7 GM/DL (3.4-5.0) Blood Gas Puncture Site MARIKA ART LINE Blood Gas Patient Temperature 98.6 98.6 Blood Gas HCO3 22 mmol/L 25 mmol/L (22-26) (22-26) Blood Gas Base Excess -1.9 mmol/L 1.0 mmol/L (-2-2) (-2-2) Blood Gas Oxygen Saturation 96 % (90-100) 95 % (90-100) Arterial Blood pH 7.40 7.40 (7.380-7.420) (7.380-7.420) Arterial Blood Partial 37 mmHg (38-42) 41 mmHg (38-42) Pressure CO2 Arterial Blood Partial 94 mmHg 84 mmHg Pressure O2 (61-120) (61-120) Arterial Blood Oxygen Content 12.4 Vol % 12.7 Vol % (12.0-20.0) (12.0-20.0) Arterial Blood 1.7 % (0-4) 1.5 % (0-4) Carboxyhemoglobin Arterial Blood Methemoglobin 0.7 % (0-2) 0.8 % (0-2) Blood Gas Hemoglobin 9.1 G/DL 9.5 G/DL (12.0-16.0) (12.0-16.0) Oxygen Delivery Device VENTILATOR VENTILATOR Blood Gas Ventilator Setting / 14 PEEP Blood Gas Inspired Oxygen 50 % 50 % Test 01/29/17 01/30/17 01/30/17 01/30/17 18:23 00:00 04:00 05:20 Sodium Level 158 MEQ/L 159 MEQ/L 157 MEQ/L (136-145) (136-145) (136-145) Serum Osmolality 329 MOSM/KG 332 MOSM/KG 324 MOSM/KG (275-295) (275-295) (275-295) White Blood Count 8.1 TH/MM3 (4.0-11.0) Red Blood Count 3.29 MIL/MM3 (4.50-5.90) Hemoglobin 9.7 GM/DL (13.0-17.0) Hematocrit 28.4 % (39.0-51.0) Mean Corpuscular Volume 86.3 FL (80.0-100.0) Mean Corpuscular Hemoglobin 29.4 PG (27.0-34.0) Mean Corpuscular Hemoglobin 34.0 % Concent (32.0-36.0) Red Cell Distribution Width 14.7 % (11.6-17.2) Platelet Count 108 TH/MM3 (150-450) Mean Platelet Volume 9.4 FL (7.0-11.0) Neutrophils (%) (Auto) 75.2 % (16.0-70.0) Lymphocytes (%) (Auto) 12.4 % (9.0-44.0) Monocytes (%) (Auto) 8.7 % (0.0-8.0) Eosinophils (%) (Auto) 3.3 % (0.0-4.0) Basophils (%) (Auto) 0.4 % (0.0-2.0) Neutrophils # (Auto) 6.1 TH/MM3 (1.8-7.7) Lymphocytes # (Auto) 1.0 TH/MM3 (1.0-4.8) Monocytes # (Auto) 0.7 TH/MM3 (0-0.9) Eosinophils # (Auto) 0.3 TH/MM3 (0-0.4) Basophils # (Auto) 0.0 TH/MM3 (0-0.2) CBC Comment AUTO DIFF Differential Total Cells 100 Counted Neutrophils % (Manual) 70 % (16-70) Band Neutrophils % 17 % (0-6) Lymphocytes % 5 % (9-44) Monocytes % 4 % (0-8) Eosinophils % 2 % (0-4) Neutrophils # (Manual) 7.2 TH/MM3 (1.8-7.7) Metamyelocytes 1 % (0-1) Myelocytes 1 % (0-0) Differential Comment FINAL DIFF MANUAL Platelet Estimate LOW (NORMAL) Platelet Morphology Comment NORMAL (NORMAL) Potassium Level 3.8 MEQ/L (3.5-5.1) Chloride Level 122 MEQ/L (98-107) Carbon Dioxide Level 29.0 MEQ/L (21.0-32.0) Anion Gap 6 MEQ/L (5-15) Blood Urea Nitrogen 31 MG/DL (7-18) Creatinine 0.80 MG/DL (0.60-1.30) Estimat Glomerular Filtration 94 ML/MIN (>89) Rate Random Glucose 139 MG/DL (74-106) Calcium Level 8.8 MG/DL (8.5-10.1) Phosphorus Level 2.4 MG/DL (2.5-4.9) Magnesium Level 2.3 MG/DL (1.5-2.5) Total Bilirubin 0.6 MG/DL (0.2-1.0) Aspartate Amino Transf 18 U/L (15-37) (AST/SGOT) Alanine Aminotransferase 18 U/L (12-78) (ALT/SGPT) Alkaline Phosphatase 54 U/L (45-117) Total Protein 4.9 GM/DL (6.4-8.2) Albumin 1.7 GM/DL (3.4-5.0) Blood Gas Puncture Site ART LINE Blood Gas Patient Temperature 98.6 Blood Gas HCO3 27 mmol/L (22-26) Blood Gas Base Excess 3.0 mmol/L (-2-2) Blood Gas Oxygen Saturation 92 % (90-100) Arterial Blood pH 7.44 (7.380-7.420) Arterial Blood Partial 40 mmHg (38-42) Pressure CO2 Arterial Blood Partial 69 mmHg Pressure O2 (61-120) Arterial Blood Oxygen Content 12.5 Vol % (12.0-20.0) Arterial Blood 1.7 % (0-4) Carboxyhemoglobin Arterial Blood Methemoglobin 0.8 % (0-2) Blood Gas Hemoglobin 9.6 G/DL (12.0-16.0) Oxygen Delivery Device VENTILATOR Blood Gas Ventilator Setting Blood Gas Inspired Oxygen 50 % Result Diagram: 01/30/17 0400 01/30/17 0400 Microbiology Microbiology Date/Time Procedure Status Source Growth 01/25/17 17:00 Gram Stain - Final Complete Sputum Endotracheal 01/25/17 17:00 Sputum Culture - Final Complete Staphylococcus Aureus Klebsiella Pneumoniae 01/25/17 16:48 Aerobic Blood Culture - Final Complete Blood Peripheral NO GROWTH IN 5 DAYS 01/25/17 16:48 Anaerobic Blood Culture - Final Complete Blood Peripheral NO GROWTH IN 5 DAYS . Imaging Last Impressions Chest X-Ray 01/30/17 0600 Signed Impressions: Service Date/Time: Monday, January 30, 2017 05:01 - CONCLUSION: 1. Endotracheal tube, nasogastric tube and left central line in satisfactory position. Left-sided basilar airspace disease similar to January 29. Bashir Coughlin MD Head CT 01/30/17 0000 Signed Impressions: Service Date/Time: Monday, January 30, 2017 04:44 - CONCLUSION: Evolving parenchymal hemorrhages in the right frontal lobe and right temporal lobe with extensive extra-axial hemorrhage again noted. No change in mass effect or shift. No hydrocephalus. Left frontal ventriculostomy tip at foramen of Monro. Bashir Coughlin MD Transcranial Doppler Study Complete 01/24/17 0000 Signed Impressions: Service Date/Time: Tuesday, January 24, 2017 10:15 - CONCLUSION: No Doppler findings of intracranial vasospasm. Ralph Thompson MD Pelvis X-Ray 01/23/17 1301 Signed Impressions: Service Date/Time: Monday, January 23, 2017 12:52 - CONCLUSION: No acute disease. Dimitri Orosco MD Chest CT 01/23/17 1301 Signed Impressions: Service Date/Time: Monday, January 23, 2017 13:32 - CONCLUSION: 1. Fracture of the left third, fourth and fifth ribs. 2. The aorta and great vessels are intact. 3. 1 cm partially calcified nodule in the right lung apex probably representing a granuloma. 4. No pneumothorax identified. Zack Carlton MD Cervical Spine CT 01/23/17 1301 Signed Impressions: Service Date/Time: Monday, January 23, 2017 13:32 - CONCLUSION: 1. Advanced degenerative changes throughout the cervical spine. No acute fracture is identified. Zack Carlton MD Abdomen/Pelvis CT 01/23/17 1301 Signed Impressions: Service Date/Time: Monday, January 23, 2017 13:32 - CONCLUSION: 1. Multiple simple cysts within the liver. The largest measures 5.6 x 3.5 cm. 2. 3.7 cm infrarenal abdominal aortic aneurysm. 3. No findings to indicate significant intra-abdominal trauma. Zack Carlton MD . Procedures * 01/28/17 - Bronchoscopy * 01/27/17 - ICP monitor removed and Ventriculostomy * 01/23/17 - A. Line and ICP monitor placed . Assessment and Plan Disease Oriented Problem List: (1) Major neurocognitive disorder as late effect of traumatic brain injury with behavioral disturbance (2) Fracture of left side of base of skull (3) Subdural hematoma (4) Traumatic subarachnoid hematoma with loss of consciousness (5) Closed head injury (6) Multiple fractures of ribs of left side (7) Ureteral calculus Symptom Scale: (1) Dyspnea 0-10 Scale: Unable to quantify Comment: On vent FiO2 50%, PEEP 14 (2) Encephalopathy 0-10 Scale: Unable to quantify (3) Pain 0-10 Scale: Unable to quantify Pertinent Non-Medical Issues Psychosocial: . Estranged from children. Supported by brothers, nieces and friends. Spiritual: Jainism. Legal:Patient is incapacitated, unlikely he will regain capacity. It appears there has been some confusion regarding legal decision maker. To clarify, patient has completed written advanced directives, Living Will and Health Care Power of Manager Of Clinical on chart. He has named his nieceNasima as primary HCS and nieceRazia as alternate HCS. 01/29/17 - Nasima Barcenas then indicates she IS willing to serve as health care power of staff attorney per her uncles (Janette Thomas) previously written directive. Faxed LW and HCPOA to HIM to be scanned into EMR, copy on chart. Ethical issues impacting care: No known concerns at this time. . Important Contacts * Nasima Barcenas nielena/ primary HC-POA: [phone] * Johnna Velázquezuibouchra niece/ alt HC-POA: * Ricki (MEMO or Gene) William, brother: [phone] * Inga Thomas CB: [phone] * Edi Thomas, brother: . Prognosis Overall prognosis appears poor for meaningful recovery given extent of brain injury and comorbidities. Per animal groomer: "Overall impression: Critically ill with severe traumatic brain injury. No improvement despite maximal efforts at brain protection. Prognosis poor." . Code Status: No Code Plan * Patient is incapacitated, unlikely he will regain capacity. It appears there has been some confusion regarding legal decision maker. To clarify, patient has completed written advanced directives, Living Will and Health Care Power of Manager Of Clinical on chart. He has named his nieceNasima as primary HCS and niece Razia as alternate HCS. 01/29/17 - Nasima Barcenas then indicates she IS willing to serve as health care power of staff attorney per her uncles (aJnette Thomas) previously written directive. Faxed LW and HCPOA to HIM to be scanned into EMR, copy on chart. * NO CODE * 01/30/17 - Family meeting planned at 12 noon. Family meeting with 2 brothers ( MEMO and Edi), sister in law (February) in consult room and niece (GRANT Del Real) via telephone for 75 minutes. Lengthy conversation regarding entire hospital course, medical conditions, prognosis and options to continue aggressive care ( Including trach and PEG) vs transition to comfort measures. Nasima will be arriving in town 01/31/17. Family seems to be leaning toward transition to comfort measures, though have not definitively decided. Questions answered to their satisfaction. Palliative care number provided. * Discussed with nurse, Makayla, Dr. Villalobos and Dr. Rosa. * SYMPTOMS: Dyspnea: on mech vent FiO2 50%, PEEP 14. respirations appear unlabored today. Pain: sources include recent trauma, surgeries, brain injury, mech vent etc. On Fentanyl drip, will monitor. 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 Surgical Elastic Knitter [employer] Frame continues to attempt to wean off all sedation, currently on Fennel. * Palliative care will continue to follow to assist with further clarification of treatment goals. . Time Spent Total Floor Time (mins): 90 Face to Face Time (mins): 75 >50% Counseling/Coord of Care: Yes Attestation To help prompt me to consider important information that might be impacting today's encounter and assessment, information from prior notes written by myself or my colleagues may have been "brought forward" into today's note. My signature on this note, however, is an attestation that I personally performed the exam, history, and/or decision-making noted today, and, unless otherwise indicated, the interactions with patient, family, and staff as well as the review of records all occurred today. I also attest that the listed assessment and stated plan reflect my best clinical judgment today based on the combination of historical information, prior notes, and today's exam/ interactions. When time spent is documented, it refers only to time spent today by the signer, or if indicated, combined time spent today by collaborating physician/nurse practitioner. LEWIS RINCON Jan 30, 2017 11:33
--- NOTE | 2017-01-30 12:55 | EKG ---
Date Performed: 01/29/2017 Time Performed: 08:14:58 PTAGE: 76 years EKG: Atrial fibrillation with rapid ventricular response. Indeterminate axis Possible inferior i nfarct - age undetermined Ant/septal and lateral ST-T changes may be due to myocardial ischemia Gener alized low QRS voltages Abnormal ECG PREVIOUS TRACING : 01/26/2017 09.54 Compared to prior tracing no significant change DOCTOR: Ralf Vee Interpretating Date/Time 01/30/2017 12:53:33
--- NOTE | 2017-01-30 13:39 | HHI.NSPN ---
History Chief Complaint: Sedated and intubated. Interval History 01/26/17: Pt sedated on Diprivan, Fentanyl, and Versed drips. Exam limited from sedation. ICPs currently 15. 01/30/17: Pt sedated on Diprivan and Fentanyl drips. Not opening eyes. Intubated. No movement to pain. Ventriculostomy drain in place. System Review Comments Not able to obtain given clinical condition. Exam Results Vital Signs Date Time Temp Pulse Resp B/P Pulse Ox O2 Delivery O2 Flow Rate FiO2 01/30/17 13:01 95 50 01/30/17 12:00 128 01/30/17 12:00 101.1 24 148/80 Intake and Output 01/29/17 01/29/17 01/30/17 08:00 16:00 00:00 Intake Total 672 ml 917 ml 1180 ml Output Total 657.0 ml 660 ml 766 ml Balance 15.0 ml 257 ml 414 ml Physical Examination Resp: Intubated. Pressure control rate 24. FiO2 50% PEEP 14 Heart: Tachycardia. No murmurs Abd: Soft positive bs Skin: No cyanosis or erythema Muscle: Sedated. No movement to pain. Neuro: Pupils 1mm bilaterally, NR bilaterally. Not following commands. Ventriculostomy in place raised from 10 to 20 cm this morning. Bloody CSF drainage. ICPs 15-20 range. Lab, Micro, Other Results Last Impressions Chest X-Ray 01/30/17 0600 Signed Impressions: Service Date/Time: Monday, January 30, 2017 05:01 - CONCLUSION: 1. Endotracheal tube, nasogastric tube and left central line in satisfactory position. Left-sided basilar airspace disease similar to January 29. Bashir Coughlin MD Head CT 01/30/17 0000 Signed Impressions: Service Date/Time: Monday, January 30, 2017 04:44 - CONCLUSION: Evolving parenchymal hemorrhages in the right frontal lobe and right temporal lobe with extensive extra-axial hemorrhage again noted. No change in mass effect or shift. No hydrocephalus. Left frontal ventriculostomy tip at foramen of [place]ro. Bashir Coughlin MD Transcranial Doppler Study Complete 01/24/17 0000 Signed Impressions: Service Date/Time: Tuesday, January 24, 2017 10:15 - CONCLUSION: No Doppler findings of intracranial vasospasm. Ralph Thompson MD Pelvis X-Ray 01/23/17 1301 Signed Impressions: Service Date/Time: Monday, January 23, 2017 12:52 - CONCLUSION: No acute disease. Dimitri Orosco MD Chest CT 01/23/17 1301 Signed Impressions: Service Date/Time: Monday, January 23, 2017 13:32 - CONCLUSION: 1. Fracture of the left third, fourth and fifth ribs. 2. The aorta and great vessels are intact. 3. 1 cm partially calcified nodule in the right lung apex probably representing a granuloma. 4. No pneumothorax identified. Zack Carlton MD Cervical Spine CT 01/23/17 1301 Signed Impressions: Service Date/Time: Monday, January 23, 2017 13:32 - CONCLUSION: 1. Advanced degenerative changes throughout the cervical spine. No acute fracture is identified. Zack Carlton MD Abdomen/Pelvis CT 01/23/17 1301 Signed Impressions: Service Date/Time: Monday, January 23, 2017 13:32 - CONCLUSION: 1. Multiple simple cysts within the liver. The largest measures 5.6 x 3.5 cm. 2. 3.7 cm infrarenal abdominal aortic aneurysm. 3. No findings to indicate significant intra-abdominal trauma. Zack Carlton MD Laboratory Tests Test 01/29/17 01/29/17 01/30/17 01/30/17 16:25 18:23 00:00 04:00 Blood Gas Puncture Site ART LINE Blood Gas Patient Temperature 98.6 Blood Gas HCO3 25 mmol/L Blood Gas Base Excess 1.0 mmol/L Blood Gas Oxygen Saturation 95 % Arterial Blood pH 7.40 Arterial Blood Partial 41 mmHg Pressure CO2 Arterial Blood Partial 84 mmHg Pressure O2 Arterial Blood Oxygen Content 12.7 Vol % Arterial Blood 1.5 % Carboxyhemoglobin Arterial Blood Methemoglobin 0.8 % Blood Gas Hemoglobin 9.5 G/DL Oxygen Delivery Device VENTILATOR Blood Gas Ventilator Setting Blood Gas Inspired Oxygen 50 % Sodium Level 158 MEQ/L 159 MEQ/L 157 MEQ/L Serum Osmolality 329 MOSM/KG 332 MOSM/KG 324 MOSM/KG White Blood Count 8.1 TH/MM3 Red Blood Count 3.29 MIL/MM3 Hemoglobin 9.7 GM/DL Hematocrit 28.4 % Mean Corpuscular Volume 86.3 FL Mean Corpuscular Hemoglobin 29.4 PG Mean Corpuscular Hemoglobin 34.0 % Concent Red Cell Distribution Width 14.7 % Platelet Count 108 TH/MM3 Mean Platelet Volume 9.4 FL Neutrophils (%) (Auto) 75.2 % Lymphocytes (%) (Auto) 12.4 % Monocytes (%) (Auto) 8.7 % Eosinophils (%) (Auto) 3.3 % Basophils (%) (Auto) 0.4 % Neutrophils # (Auto) 6.1 TH/MM3 Lymphocytes # (Auto) 1.0 TH/MM3 Monocytes # (Auto) 0.7 TH/MM3 Eosinophils # (Auto) 0.3 TH/MM3 Basophils # (Auto) 0.0 TH/MM3 CBC Comment AUTO DIFF Differential Total Cells 100 Counted Neutrophils % (Manual) 70 % Band Neutrophils % 17 % Lymphocytes % 5 % Monocytes % 4 % Eosinophils % 2 % Neutrophils # (Manual) 7.2 TH/MM3 Metamyelocytes 1 % Myelocytes 1 % Differential Comment FINAL DIFF MANUAL Platelet Estimate LOW Platelet Morphology Comment NORMAL Potassium Level 3.8 MEQ/L Chloride Level 122 MEQ/L Carbon Dioxide Level 29.0 MEQ/L Anion Gap 6 MEQ/L Blood Urea Nitrogen 31 MG/DL Creatinine 0.80 MG/DL Estimat Glomerular Filtration 94 ML/MIN Rate Random Glucose 139 MG/DL Calcium Level 8.8 MG/DL Phosphorus Level 2.4 MG/DL Magnesium Level 2.3 MG/DL Total Bilirubin 0.6 MG/DL Aspartate Amino Transf 18 U/L (AST/SGOT) Alanine Aminotransferase 18 U/L (ALT/SGPT) Alkaline Phosphatase 54 U/L Total Protein 4.9 GM/DL Albumin 1.7 GM/DL Test 01/30/17 01/30/17 05:20 12:11 Blood Gas Puncture Site ART LINE Blood Gas Patient Temperature 98.6 Blood Gas HCO3 27 mmol/L Blood Gas Base Excess 3.0 mmol/L Blood Gas Oxygen Saturation 92 % Arterial Blood pH 7.44 Arterial Blood Partial 40 mmHg Pressure CO2 Arterial Blood Partial 69 mmHg Pressure O2 Arterial Blood Oxygen Content 12.5 Vol % Arterial Blood 1.7 % Carboxyhemoglobin Arterial Blood Methemoglobin 0.8 % Blood Gas Hemoglobin 9.6 G/DL Oxygen Delivery Device VENTILATOR Blood Gas Ventilator Setting Blood Gas Inspired Oxygen 50 % Sodium Level 155 MEQ/L Serum Osmolality 327 MOSM/KG 01/29/17 01/29/17 01/30/17 15:00 23:00 07:00 Intake Total 917 ml 1180 ml 547 ml Output Total 660 ml 766 ml 500 ml Balance 257 ml 414 ml 47 ml Intake IV Total 445 ml 529 ml 251 ml Tube Feeding 472 ml 451 ml 236 ml Other 200 ml 60 ml Output Urine Total 600 ml 700 ml 450 ml Tube Feeding Residual Discard 0 ml 0 ml Drainage Total 60 ml 66 ml 50 ml # Bowel Movements 0 1 Medical Decision Making Impression and Plan Diagnosis: (1) Closed head injury Plan: ICP monitoring implemented, GCS is 3 on sedation, initial ICP 20-35 without sedation. Currently 15-20. (2) Fracture of left side of base of skull Plan: Initial bleeding from the left ear, no CSF leak so far. (3) Subdural hematoma Plan: Continue to monitor. (4) Traumatic subarachnoid hematoma with loss of consciousness Plan: Continue to monitor. Seizure prophylaxis and CPP 70-80 is recommended at this time. Declan Galvin Jan 30, 2017 13:39
[2017-01-30 14:13] LABS: STAT NO
[2017-01-30] MEDS: cefTRIAXone INJ 1,000 MG in SODIUM CHLORIDE 0.9% INJ 100 ML IV SCH (16:02)
[2017-01-31] VITALS (20 sets, daily range): BP systolic 112–154; BP diastolic 55–82; PULSE 86–114; RESP 24–26; TEMP 99.7–100.9; O2SAT 92–100
[2017-01-31] MEDS: PROPOFOL 1000 MG/100 ML INJ 100 ML IV SCH ×7 (01:18→22:37)
[2017-01-31] MEDS: RESP: ALBUTEROL 2.5 MG/IPRATROPIUM 0.5 MG NEB (SCH) INH (03:09)
[2017-01-31] MEDS: CHLORHEXIDINE GLUCONATE 2 % 1 PACK (2 CLOTHS) TOP SCH (03:43)
[2017-01-31] MEDS: fentaNYL DRIP 250 ML IV SCH (04:01)
[2017-01-31 05:09] LABS: BLOOD GAS BASE EXCESS 2.3 mmol/L (-2-2); BLOOD GAS CARBOXYHEMOGLOBIN 1.5 % (0-4); BLOOD GAS HCO3 26 mmol/L (22-26); BLOOD GAS METHEMOGLOBIN 0.6 % (0-2); BLOOD GAS O2 HGB SATURATION 96 % (90-100); BLOOD GAS OXYGEN CONTENT 13.6 Vol % (12.0-20.0); BLOOD GAS PCO2 35 mmHg (38-42); BLOOD GAS PO2 94 mmHg (61-120); CRITICAL VALUE NO; OXYGEN DEVICE VENTILATOR; TEMP CORR TO 98.6
[2017-01-31 05:11] LABS: DRAW SITE ART LINE; FIO2 45 %; NUMBER OF ARTERIAL PUNCTURES 0; STAT NO
[2017-01-31] MEDS: ACETAMINOPHEN 325 MG TAB PO PRN (05:27)
[2017-01-31] MEDS: METOPROLOL TARTRATE 25 MG TAB OG-TUBE SCH ×3 (05:27→17:02)
[2017-01-31 05:36] LABS: AUTOMATED NEUTROPHIL # 7.8 TH/MM3 (1.8-7.7); BASOPHIL % 0.4 % (0.0-2.0); EOSINOPHIL # 0.3 TH/MM3 (0-0.4); EOSINOPHIL % 3.4 % (0.0-4.0); HEMATOCRIT 29.8 % (39.0-51.0); LYMPH % 7.2 % (9.0-44.0); LYMPHOCYTE # 0.7 TH/MM3 (1.0-4.8); MEAN CELL VOLUME 87.3 FL (80.0-100.0); MEAN CORPUSCULAR HGB CONC 33.3 % (32.0-36.0); MONO % 10.3 % (0.0-8.0); NEUT % 78.7 % (16.0-70.0); PLATELET COUNT 131 TH/MM3 (150-450); RED BLOOD COUNT 3.42 MIL/MM3 (4.50-5.90); RED CELL DISTRIBUTION WIDTH 14.7 % (11.6-17.2); WHITE BLOOD COUNT 9.9 TH/MM3 (4.0-11.0)
[2017-01-31] MEDS: INSULIN NovoLIN REGULAR SUPPLEMENTAL SCALE SQ SCH ×3 (05:42→18:00)
[2017-01-31 05:43] LABS: ALT (GPT) 23 U/L (12-78); ANION GAP 6 MEQ/L (5-15); AST (GOT) 22 U/L (15-37); BICARBONATE 28.1 MEQ/L (21.0-32.0); BLOOD UREA NITROGEN 34 MG/DL (7-18); CHLORIDE 118 MEQ/L (98-107); GLOMERULAR FILTRATION RATE 94 ML/MIN (>89); POTASSIUM 4.1 MEQ/L (3.5-5.1); SODIUM (NA) 152 MEQ/L (136-145)
[2017-01-31 05:46] LABS: ALKALINE PHOSPHATASE 59 U/L (45-117); TOTAL BILIRUBIN ADULT 0.6 MG/DL (0.2-1.0)
[2017-01-31 06:13] LABS: HEMO FLAGS AUTO DIFF
[2017-01-31 07:07] LABS: BANDS 19 % (0-6); EOSINOPHILS 1 % (0-4); METAMYELOCYTES 1 % (0-1); MYELOCYTES 1 % (0-0); NEUTROPHIL # MANUAL DIFF 8.7 TH/MM3 (1.8-7.7); POLYS (SEG NEUTROPHILS) 67 % (16-70); WBC DIFF SAMPLE 100
[2017-01-31 07:08] LABS: PLATELET ESTIMATE SMEAR LOW (NORMAL); PLATELET MORPHOLOGY NORMAL (NORMAL); POLYCHROMASIA 2.4 % (0.0-1.9); SCAN/DIFF FINAL DIFF MANUAL; TOXIC GRANULATION 1+ (NORMAL)
[2017-01-31] MEDS: CHLORHEXIDINE 0.12% (ORAL KIT) 15 ML CUP MT SCH ×2 (08:03→21:00)
[2017-01-31] MEDS: PANTOPRAZOLE SODIUM 40 MG VIAL IV SCH (08:03)
[2017-01-31] MEDS: levETIRAcetam INJ 500 MG in SODIUM CHLORIDE 0.9% INJ 100 ML IV SCH ×2 (08:03→20:14)
[2017-01-31] MEDS: SODIUM CHLORIDE 0.9% FLUSH 5 ML FLUSH IVF SCH ×2 (08:04→21:00)
[2017-01-31] MEDS: DOCUSATE SODIUM 50 MG/SENNA 8.6 MG TAB PO SCH ×2 (08:04→20:14)
[2017-01-31] MEDS: LACTULOSE SYRUP 20 GM/30 ML CUP PO SCH (08:04)
[2017-01-31] MEDS: DIGOXIN 0.5 MG/2 ML VIAL IV PUSH SCH (08:04)
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
[2017-01-31] MEDS: RESP: ALBUTEROL 2.5 MG/IPRATROPIUM 0.5 MG NEB (SCH) NEB ×3 (10:00→19:42)
[2017-01-31] MEDS ORDERED: LABETALOL HCL 100 MG/20 ML VIAL IV PUSH PRN (10:00)
[2017-01-31] MEDS ORDERED: amLODIPine BESYLATE 5 MG TAB PO ONE (10:00)
[2017-01-31] MEDS: hydrALAZINE HCL 20 MG/ML VIAL IV PUSH SCH ×2 (11:40→17:02)
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
[2017-01-31 11:52] LABS: BLOOD, URINE NEG (NEG); COMMENT (UR) CATH-CULT NOT IND; CULTURE IF INDICATED CATH CULTURE NOT IND; GLUCOSE,URINE NEG (NEG); KETONE, URINE NEG (NEG); NITRITE,URINE NEG (NEG); PH, URINE 7.5 (5.0-8.5); URINE COLOR YELLOW (YELLW/STRAW)
--- NOTE | 2017-01-31 13:10 | HHI.PR ---
Neuropsych Emotional Emotional: UnabletoAssess: Emotional, Anxious/Fearful, Depressed/Sad, Hostile/ Resentful, Irritable/Angry/Frustrate, Labile, Constricted/Blunted Behavior Behavior: Unable to Asses: Behavior, Coping/Acceptance, Cooperative w/ Treatment, Motivation, Frustration Tolerance/[place], Impulsive/Agitated, Suicidal/ Homicidal Risk Cognitive Cognitive: Unable to Asses: Cognitive, Attention/Concentration, Confused/ Orientation, Insight/Awareness, Judgement/Problem-Solving, Memory Progress Notes/Response to Tx Contents of Sessions: Level of Consciousness Time with Patient: 15 minutes Premorbid psychological status Premorbid Cognitive, Emotional and Behavioral Status: Unable to Assess. There is minimal information about his patient's psychosocial history. Substance abuse history is unknown. Behavioral Reactions of Patient and Family/Support System: Unable to Assess. The patients family is not present. Emotional/Behavioral Status of Patient and Family/Support System: Unable to Assess. Pertinent issues, if appropriate to this patients clinical care, are described in detail above. Maximizing acute care outcome It is recommended that the patient be monitored for emergent behavioral impulsivity as the medical condition evolves. This patients neuropathological challenges may limit their rehabilitation potential going forward, and these challenges will require specialized therapeutic skills to maximize outcome. Anticipated Problems Ongoing areas of concern will include behavioral impulsivity, lack of insight and judgment, which is expected to improve with time and treatment. Presently , the patient is sedated and intubated. Treatment Plan This clinician will continue to follow with you throughout the course of this patients rehabilitation treatment, and I will be available to meet with the patients family/support system to facilitate their understanding and the ongoing care of their family member. The goals of neuropsychological intervention shall be both educational and supportive to the family/support system as is deemed clinically appropriate. [facility] Level: I:No response-total assistance Impression This elderly gentleman suffered a severe traumatic brain injury, and is now at a [place] Level I, with GCS of 3T. He will have significant neurocognitive disorder on recovery. Diagnosis: (1) Major neurocognitive disorder as late effect of traumatic brain injury with behavioral disturbance Status: Acute Progress Note Narrative Ongoing follow-up of patient seen during daily trauma rounds. This is day 8 post injury. Neurobehaviorally, there is no change in this patient's status. He is a NO CODE status. He remains sedated and intubated, no movement, not following no eye opening. [place] level I. His ICPs were 15-20. I will continue to follow with you. Feliz Dyer PhD Jan 31, 2017 1:10 pm
--- NOTE | 2017-01-31 13:21 | HHI.HCPN ---
Reason for visit a. To assist with evaluation and management of symptoms including: encephalopathy, dyspnea. b. To assist medical decision maker(s) with: better understanding of current medical conditions; weighing benefits/burdens of medical treatment options; making medical treatment decisions. . Subjective/Interval History Patient seen and examined in ICU. Discussed with nurse, Makayla. No family at bedside during my exam. Patient is on propofol 20, remains on Fentanyl 150. He remains unresponsive, no corneal reflex or gag. Tmax 101. Ice packs in place during my visit. Labile blood pressures noted. Tube feeding at 20cc/ hr. Repeat blood cultures pending. Discussed with nurse, advised to have family call my cell if they have questions or concerns. Will plan to meet family 02/01/17 once HC-POA arrives. \\ . Family/friend interactions No family at bedside. . Advance Directives Living Will: Copy in medical record Health Care Surrogate: Copy in medical record Advance Directive Specifics Date completed: 08/08/16 . Health Care Surrogate(s): Health care Power of Product Development Specialist: Primary - Nasima Barcenas (niece) Alternate: Johnna Perez (niece) . Documented care wishes: Living Will states should his attending MD document that he have an incurable injury, disease or illness and would occur in a short time and use of life prolonging procedures be withheld or withdrawn and that he be permitted to naturally and that he does not want to receive artificial nutrition or hydration. . Significant change in goals: NO CODE. Possible withdrawal of life support in the coming days, will further clarify goals on 02/01/17 once HC-POA arrives. . Objective Vital Signs Date Time Temp Pulse Resp B/P Pulse Ox O2 Delivery O2 Flow Rate FiO2 01/31/17 12:00 40 01/31/17 12:00 99.7 86 25 154/70 95 01/31/17 12:00 86 01/31/17 11:15 94 40 01/31/17 10:00 99 01/31/17 08:00 95 01/31/17 08:00 100.8 95 24 112/55 99 01/31/17 08:00 45 01/31/17 07:34 97 45 01/31/17 07:34 97 45 01/31/17 06:00 104 01/31/17 04:04 98 45 01/31/17 04:00 109 01/31/17 04:00 100.9 109 24 152/81 97 01/31/17 04:00 45 01/31/17 02:00 103 01/31/17 01:49 100 45 01/31/17 01:20 45 01/31/17 01:10 100 45 01/31/17 00:00 50 01/31/17 00:00 100.4 103 24 144/82 98 01/31/17 00:00 103 01/30/17 22:27 97 50 01/30/17 22:00 100 01/30/17 20:55 24 01/30/17 20:29 50 01/30/17 20:29 99 50 01/30/17 20:00 50 01/30/17 20:00 101.0 103 24 142/80 99 01/30/17 20:00 103 01/30/17 18:00 110 01/30/17 17:07 99 50 01/30/17 16:00 100.9 119 24 126/78 98 01/30/17 16:00 118 01/30/17 16:00 50 01/30/17 14:00 120 01/30/17 13:01 95 50 Intake & Output 01/31/17 01/31/17 07:00 19:00 Intake Total 1764 ml Output Total 1656 ml Balance 108 ml IV Total 935 ml Tube Feeding 289 ml Other 540 ml Output Urine Total 1550 ml Drainage Total 106 ml Physical Exam CONSTITUTIONAL/GENERAL: This is an elderly, critically ill patient, on the [facility] vent. TUBES/LINES/DRAINS: ventriculostomy, ETT, OG, left subclavian central line, bilateral soft wrist restraints, Worrell, SCDs SKIN: Ice packs. No jaundice, rashes, or lesions. Ecchymoses on upper extremities. Skin tears bilateral UE. Skin temperature appropriate. Not diaphoretic. HEAD: Ventriculostomy. CARDIOVASCULAR: Tachycardic, rate 117. RESPIRATORY/CHEST: Symmetric, unlabored respirations on vent. Course breath sounds bilaterally. GASTROINTESTINAL: Abdomen soft, distended. Bowel sounds present. GENITOURINARY: Without palpable bladder distension. Worrell catheter in place, dark tea colored urine. MUSCULOSKELETAL: Extremities with upper and lower extremity edema. NEUROLOGICAL: Does not awaken to voice or noxious stimuli. No spontaneous movements noted. PSYCHIATRIC: Sedated. . Diagnostic Tests Laboratory Laboratory Tests Test 01/28/17 01/29/17 01/29/17 01/29/17 22:00 00:10 05:00 05:35 Sodium Level 156 MEQ/L 158 MEQ/L 158 MEQ/L (136-145) (136-145) (136-145) Serum Osmolality 321 MOSM/KG 323 MOSM/KG 324 MOSM/KG (275-295) (275-295) (275-295) White Blood Count 5.9 TH/MM3 (4.0-11.0) Red Blood Count 3.22 MIL/MM3 (4.50-5.90) Hemoglobin 9.6 GM/DL (13.0-17.0) Hematocrit 27.8 % (39.0-51.0) Mean Corpuscular Volume 86.3 FL (80.0-100.0) Mean Corpuscular Hemoglobin 29.8 PG (27.0-34.0) Mean Corpuscular Hemoglobin 34.5 % Concent (32.0-36.0) Red Cell Distribution Width 15.1 % (11.6-17.2) Platelet Count 98 TH/MM3 (150-450) Mean Platelet Volume 9.6 FL (7.0-11.0) Neutrophils (%) (Auto) 77.5 % (16.0-70.0) Lymphocytes (%) (Auto) 9.8 % (9.0-44.0) Monocytes (%) (Auto) 8.9 % (0.0-8.0) Eosinophils (%) (Auto) 3.2 % (0.0-4.0) Basophils (%) (Auto) 0.6 % (0.0-2.0) Neutrophils # (Auto) 4.6 TH/MM3 (1.8-7.7) Lymphocytes # (Auto) 0.6 TH/MM3 (1.0-4.8) Monocytes # (Auto) 0.5 TH/MM3 (0-0.9) Eosinophils # (Auto) 0.2 TH/MM3 (0-0.4) Basophils # (Auto) 0.0 TH/MM3 (0-0.2) CBC Comment AUTO DIFF Differential Total Cells 100 Counted Neutrophils % (Manual) 60 % (16-70) Band Neutrophils % 18 % (0-6) Lymphocytes % 7 % (9-44) Monocytes % 10 % (0-8) Eosinophils % 4 % (0-4) Basophils % 1 % (0-2) Neutrophils # (Manual) 4.6 TH/MM3 (1.8-7.7) Differential Comment FINAL DIFF MANUAL Platelet Estimate LOW (NORMAL) Platelet Morphology Comment NORMAL (NORMAL) Red Cell Morphology Comment NORMAL (NORMAL) Potassium Level 3.4 MEQ/L (3.5-5.1) Chloride Level 123 MEQ/L (98-107) Carbon Dioxide Level 27.3 MEQ/L (21.0-32.0) Anion Gap 8 MEQ/L (5-15) Blood Urea Nitrogen 25 MG/DL (7-18) Creatinine 0.82 MG/DL (0.60-1.30) Estimat Glomerular Filtration 91 ML/MIN (>89) Rate Random Glucose 156 MG/DL (74-106) Calcium Level 8.7 MG/DL (8.5-10.1) Phosphorus Level 2.3 MG/DL (2.5-4.9) Magnesium Level 2.1 MG/DL (1.5-2.5) Total Bilirubin 0.7 MG/DL (0.2-1.0) Aspartate Amino Transf 17 U/L (15-37) (AST/SGOT) Alanine Aminotransferase 15 U/L (12-78) (ALT/SGPT) Alkaline Phosphatase 49 U/L (45-117) Total Protein 4.9 GM/DL (6.4-8.2) Albumin 1.7 GM/DL (3.4-5.0) Blood Gas Puncture Site MARIKA Blood Gas Patient Temperature 98.6 Blood Gas HCO3 22 mmol/L (22-26) Blood Gas Base Excess -1.9 mmol/L (-2-2) Blood Gas Oxygen Saturation 96 % (90-100) Arterial Blood pH 7.40 (7.380-7.420) Arterial Blood Partial 37 mmHg (38-42) Pressure CO2 Arterial Blood Partial 94 mmHg Pressure O2 (61-120) Arterial Blood Oxygen Content 12.4 Vol % (12.0-20.0) Arterial Blood 1.7 % (0-4) Carboxyhemoglobin Arterial Blood Methemoglobin 0.7 % (0-2) Blood Gas Hemoglobin 9.1 G/DL (12.0-16.0) Oxygen Delivery Device VENTILATOR Blood Gas Ventilator Setting 24/550/ 14 PEEP Blood Gas Inspired Oxygen 50 % Test 01/29/17 01/29/17 01/29/17 01/30/17 12:40 16:25 18:23 00:00 Sodium Level 158 MEQ/L 158 MEQ/L 159 MEQ/L (136-145) (136-145) (136-145) Serum Osmolality 325 MOSM/KG 329 MOSM/KG 332 MOSM/KG (275-295) (275-295) (275-295) Blood Gas Puncture Site ART LINE Blood Gas Patient Temperature 98.6 Blood Gas HCO3 25 mmol/L (22-26) Blood Gas Base Excess 1.0 mmol/L (-2-2) Blood Gas Oxygen Saturation 95 % (90-100) Arterial Blood pH 7.40 (7.380-7.420) Arterial Blood Partial 41 mmHg (38-42) Pressure CO2 Arterial Blood Partial 84 mmHg Pressure O2 (61-120) Arterial Blood Oxygen Content 12.7 Vol % (12.0-20.0) Arterial Blood 1.5 % (0-4) Carboxyhemoglobin Arterial Blood Methemoglobin 0.8 % (0-2) Blood Gas Hemoglobin 9.5 G/DL (12.0-16.0) Oxygen Delivery Device VENTILATOR Blood Gas Ventilator Setting Blood Gas Inspired Oxygen 50 % Test 01/30/17 01/30/17 01/30/17 01/30/17 04:00 05:20 12:11 19:40 White Blood Count 8.1 TH/MM3 (4.0-11.0) Red Blood Count 3.29 MIL/MM3 (4.50-5.90) Hemoglobin 9.7 GM/DL (13.0-17.0) Hematocrit 28.4 % (39.0-51.0) Mean Corpuscular Volume 86.3 FL (80.0-100.0) Mean Corpuscular Hemoglobin 29.4 PG (27.0-34.0) Mean Corpuscular Hemoglobin 34.0 % Concent (32.0-36.0) Red Cell Distribution Width 14.7 % (11.6-17.2) Platelet Count 108 TH/MM3 (150-450) Mean Platelet Volume 9.4 FL (7.0-11.0) Neutrophils (%) (Auto) 75.2 % (16.0-70.0) Lymphocytes (%) (Auto) 12.4 % (9.0-44.0) Monocytes (%) (Auto) 8.7 % (0.0-8.0) Eosinophils (%) (Auto) 3.3 % (0.0-4.0) Basophils (%) (Auto) 0.4 % (0.0-2.0) Neutrophils # (Auto) 6.1 TH/MM3 (1.8-7.7) Lymphocytes # (Auto) 1.0 TH/MM3 (1.0-4.8) Monocytes # (Auto) 0.7 TH/MM3 (0-0.9) Eosinophils # (Auto) 0.3 TH/MM3 (0-0.4) Basophils # (Auto) 0.0 TH/MM3 (0-0.2) CBC Comment AUTO DIFF Differential Total Cells 100 Counted Neutrophils % (Manual) 70 % (16-70) Band Neutrophils % 17 % (0-6) Lymphocytes % 5 % (9-44) Monocytes % 4 % (0-8) Eosinophils % 2 % (0-4) Neutrophils # (Manual) 7.2 TH/MM3 (1.8-7.7) Metamyelocytes 1 % (0-1) Myelocytes 1 % (0-0) Differential Comment FINAL DIFF MANUAL Platelet Estimate LOW (NORMAL) Platelet Morphology Comment NORMAL (NORMAL) Sodium Level 157 MEQ/L 155 MEQ/L 154 MEQ/L (136-145) (136-145) (136-145) Potassium Level 3.8 MEQ/L (3.5-5.1) Chloride Level 122 MEQ/L (98-107) Carbon Dioxide Level 29.0 MEQ/L (21.0-32.0) Anion Gap 6 MEQ/L (5-15) Blood Urea Nitrogen 31 MG/DL (7-18) Creatinine 0.80 MG/DL (0.60-1.30) Estimat Glomerular Filtration 94 ML/MIN (>89) Rate Random Glucose 139 MG/DL (74-106) Serum Osmolality 324 MOSM/KG 327 MOSM/KG 325 MOSM/KG (275-295) (275-295) (275-295) Calcium Level 8.8 MG/DL (8.5-10.1) Phosphorus Level 2.4 MG/DL (2.5-4.9) Magnesium Level 2.3 MG/DL (1.5-2.5) Total Bilirubin 0.6 MG/DL (0.2-1.0) Aspartate Amino Transf 18 U/L (15-37) (AST/SGOT) Alanine Aminotransferase 18 U/L (12-78) (ALT/SGPT) Alkaline Phosphatase 54 U/L (45-117) Total Protein 4.9 GM/DL (6.4-8.2) Albumin 1.7 GM/DL (3.4-5.0) Blood Gas Puncture Site ART LINE Blood Gas Patient Temperature 98.6 Blood Gas HCO3 27 mmol/L (22-26) Blood Gas Base Excess 3.0 mmol/L (-2-2) Blood Gas Oxygen Saturation 92 % (90-100) Arterial Blood pH 7.44 (7.380-7.420) Arterial Blood Partial 40 mmHg (38-42) Pressure CO2 Arterial Blood Partial 69 mmHg Pressure O2 (61-120) Arterial Blood Oxygen Content 12.5 Vol % (12.0-20.0) Arterial Blood 1.7 % (0-4) Carboxyhemoglobin Arterial Blood Methemoglobin 0.8 % (0-2) Blood Gas Hemoglobin 9.6 G/DL (12.0-16.0) Oxygen Delivery Device VENTILATOR Blood Gas Ventilator Setting Blood Gas Inspired Oxygen 50 % Test 01/31/17 01/31/17 01/31/17 01:10 05:00 11:35 Sodium Level 153 MEQ/L 152 MEQ/L 152 MEQ/L (136-145) (136-145) (136-145) Serum Osmolality 335 MOSM/KG 324 MOSM/KG 322 MOSM/KG (275-295) (275-295) (275-295) White Blood Count 9.9 TH/MM3 (4.0-11.0) Red Blood Count 3.42 MIL/MM3 (4.50-5.90) Hemoglobin 9.9 GM/DL (13.0-17.0) Hematocrit 29.8 % (39.0-51.0) Mean Corpuscular Volume 87.3 FL (80.0-100.0) Mean Corpuscular Hemoglobin 29.0 PG (27.0-34.0) Mean Corpuscular Hemoglobin 33.3 % Concent (32.0-36.0) Red Cell Distribution Width 14.7 % (11.6-17.2) Platelet Count 131 TH/MM3 (150-450) Mean Platelet Volume 9.9 FL (7.0-11.0) Neutrophils (%) (Auto) 78.7 % (16.0-70.0) Lymphocytes (%) (Auto) 7.2 % (9.0-44.0) Monocytes (%) (Auto) 10.3 % (0.0-8.0) Eosinophils (%) (Auto) 3.4 % (0.0-4.0) Basophils (%) (Auto) 0.4 % (0.0-2.0) Neutrophils # (Auto) 7.8 TH/MM3 (1.8-7.7) Lymphocytes # (Auto) 0.7 TH/MM3 (1.0-4.8) Monocytes # (Auto) 1.0 TH/MM3 (0-0.9) Eosinophils # (Auto) 0.3 TH/MM3 (0-0.4) Basophils # (Auto) 0.0 TH/MM3 (0-0.2) CBC Comment AUTO DIFF Differential Total Cells 100 Counted Neutrophils % (Manual) 67 % (16-70) Band Neutrophils % 19 % (0-6) Lymphocytes % 5 % (9-44) Monocytes % 6 % (0-8) Eosinophils % 1 % (0-4) Neutrophils # (Manual) 8.7 TH/MM3 (1.8-7.7) Metamyelocytes 1 % (0-1) Myelocytes 1 % (0-0) Differential Comment FINAL DIFF MANUAL Toxic Granulation 1+ (NORMAL) Platelet Estimate LOW (NORMAL) Platelet Morphology Comment NORMAL (NORMAL) Polychromasia 2.4 % (0.0-1.9) Blood Gas Puncture Site ART LINE Blood Gas Patient Temperature 98.6 Blood Gas HCO3 26 mmol/L (22-26) Blood Gas Base Excess 2.3 mmol/L (-2-2) Blood Gas Oxygen Saturation 96 % (90-100) Arterial Blood pH 7.47 (7.380-7.420) Arterial Blood Partial 35 mmHg (38-42) Pressure CO2 Arterial Blood Partial 94 mmHg Pressure O2 (61-120) Arterial Blood Oxygen Content 13.6 Vol % (12.0-20.0) Arterial Blood 1.5 % (0-4) Carboxyhemoglobin Arterial Blood Methemoglobin 0.6 % (0-2) Blood Gas Hemoglobin 10.0 G/DL (12.0-16.0) Oxygen Delivery Device VENTILATOR Blood Gas Ventilator Setting Blood Gas Inspired Oxygen 45 % Potassium Level 4.1 MEQ/L (3.5-5.1) Chloride Level 118 MEQ/L (98-107) Carbon Dioxide Level 28.1 MEQ/L (21.0-32.0) Anion Gap 6 MEQ/L (5-15) Blood Urea Nitrogen 34 MG/DL (7-18) Creatinine 0.80 MG/DL (0.60-1.30) Estimat Glomerular Filtration 94 ML/MIN (>89) Rate Random Glucose 123 MG/DL (74-106) Calcium Level 8.8 MG/DL (8.5-10.1) Total Bilirubin 0.6 MG/DL (0.2-1.0) Aspartate Amino Transf 22 U/L (15-37) (AST/SGOT) Alanine Aminotransferase 23 U/L (12-78) (ALT/SGPT) Alkaline Phosphatase 59 U/L (45-117) Total Protein 5.3 GM/DL (6.4-8.2) Albumin 1.9 GM/DL (3.4-5.0) Urine Color YELLOW (YELLW/STRAW) Urine Turbidity HAZY (CLEAR) Urine pH 7.5 (5.0-8.5) Urine Specific [place] 1.018 (1.002-1.035) Urine Protein NEG mg/dL (NEG-TRACE) Urine Glucose (UA) NEG mg/dL (NEG) Urine Ketones NEG mg/dL (NEG) Urine Occult Blood NEG (NEG) Urine Nitrite NEG (NEG) Urine Bilirubin NEG (NEG) Urine Urobilinogen LESS THAN 2.0 MG/DL (LESS THAN 2.0) Urine Leukocyte Esterase NEG (NEG) Urine RBC 2 /hpf (0-3) Urine WBC 2 /hpf (0-5) Urine Amorphous Sediment RARE Microscopic Urinalysis Comment CATH-CULT NOT IND Result Diagram: 01/31/17 0500 01/31/17 1135 Microbiology Microbiology Date/Time Procedure Status Source Growth 01/31/17 11:26 Aerobic Blood Culture Received Blood Peripheral Pending 01/31/17 11:26 Anaerobic Blood Culture Received Blood Peripheral Pending Imaging Last Impressions Chest X-Ray 01/30/17 0600 Signed Impressions: Service Date/Time: Monday, January 30, 2017 05:01 - CONCLUSION: 1. Endotracheal tube, nasogastric tube and left central line in satisfactory position. Left-sided basilar airspace disease similar to January 29. Bashir Coughlin MD Head CT 01/30/17 0000 Signed Impressions: Service Date/Time: Monday, January 30, 2017 04:44 - CONCLUSION: Evolving parenchymal hemorrhages in the right frontal lobe and right temporal lobe with extensive extra-axial hemorrhage again noted. No change in mass effect or shift. No hydrocephalus. Left frontal ventriculostomy tip at foramen of [place]. Bashir Coughlin MD Transcranial Doppler Study Complete 01/24/17 0000 Signed Impressions: Service Date/Time: Tuesday, January 24, 2017 10:15 - CONCLUSION: No Doppler findings of intracranial vasospasm. Ralph Thompson MD Pelvis X-Ray 01/23/17 1301 Signed Impressions: Service Date/Time: Monday, January 23, 2017 12:52 - CONCLUSION: No acute disease. Dimitri Orosco MD Chest CT 01/23/17 1301 Signed Impressions: Service Date/Time: Monday, January 23, 2017 13:32 - CONCLUSION: 1. Fracture of the left third, fourth and fifth ribs. 2. The aorta and great vessels are intact. 3. 1 cm partially calcified nodule in the right lung apex probably representing a granuloma. 4. No pneumothorax identified. Zack Carlton MD Cervical Spine CT 01/23/17 1301 Signed Impressions: Service Date/Time: Monday, January 23, 2017 13:32 - CONCLUSION: 1. Advanced degenerative changes throughout the cervical spine. No acute fracture is identified. Zack Carlton MD Abdomen/Pelvis CT 01/23/17 1301 Signed Impressions: Service Date/Time: Monday, January 23, 2017 13:32 - CONCLUSION: 1. Multiple simple cysts within the liver. The largest measures 5.6 x 3.5 cm. 2. 3.7 cm infrarenal abdominal aortic aneurysm. 3. No findings to indicate significant intra-abdominal trauma. Zack Carlton MD Procedures * 01/28/17 - Bronchoscopy * 01/27/17 - ICP monitor removed and Ventriculostomy * 01/23/17 - A. Line and ICP monitor placed . Assessment and Plan Disease Oriented Problem List: (1) Major neurocognitive disorder as late effect of traumatic brain injury with behavioral disturbance (2) Fracture of left side of base of skull (3) Subdural hematoma (4) Traumatic subarachnoid hematoma with loss of consciousness (5) Closed head injury (6) Multiple fractures of ribs of left side (7) Ureteral calculus Symptom Scale: (1) Dyspnea 0-10 Scale: Unable to quantify Comment: On vent FiO2 50%, PEEP 14 (2) Encephalopathy 0-10 Scale: Unable to quantify (3) Pain 0-10 Scale: Unable to quantify Pertinent Non-Medical Issues Psychosocial: . Estranged from children. Supported by brothers, nieces and friends. Spiritual: [employer]. Legal:Patient is incapacitated, unlikely he will regain capacity. It appears there has been some confusion regarding legal decision maker. To clarify, patient has completed written advanced directives, Living Will and Health Care Power of Product Development Specialist on chart. He has named his nieceNasima as primary HCS and nieceRazia as alternate HCS. 01/29/17 - Nasima Barcenas then indicates she IS willing to serve as health care power of compo caster per her uncles (Janette Thomas) previously written directive. Faxed LW and HCPOA to HIM to be scanned into EMR, copy on chart. Ethical issues impacting care: No known concerns at this time. . Important Contacts * Nasima Barcenas niece/ primary HC-POA: [phone] * Johnna Perez niece/ alt HC-POA: * Ricki (LE or Gene) William, brother: [phone] * Inga Thomas CB: [phone] * Edi Thomas, brother: . Prognosis Overall prognosis appears poor for meaningful recovery given extent of brain injury and comorbidities. Per vacuum plastic forming machine operator: "Overall impression: Critically ill with severe traumatic brain injury. No improvement despite maximal efforts at brain protection. Prognosis poor." . Code Status: No Code Plan * Patient is incapacitated, unlikely he will regain capacity. It appears there has been some confusion regarding legal decision maker. To clarify, patient has completed written advanced directives, Living Will and Health Care Power of Product Development Specialist on chart. He has named his nieceNasima as primary HCS and niece Razia as alternate HCS. 01/29/17 - Nasima Barcenas then indicates she IS willing to serve as health care power of compo caster per her uncles (Janette Thomas) previously written directive. Faxed LW and HCPOA to HIM to be scanned into EMR, copy on chart. * NO CODE * 01/30/17 - Family meeting planned at 12 noon. Family meeting with 2 brothers ( MEMO and Edi), sister in law (February) in consult room and niece (Nasima, GRANT) via telephone for 75 minutes. Lengthy conversation regarding entire hospital course, medical conditions, prognosis and options to continue aggressive care ( Including trach and PEG) vs transition to comfort measures. Nasima will be arriving in town 01/31/17. Family seems to be leaning toward transition to comfort measures, though have not definitively decided. Questions answered to their satisfaction. Palliative care number provided. * SYMPTOMS: Dyspnea: on mech vent FiO2 50%, PEEP 14. respirations appear unlabored today. Pain: sources include recent trauma, surgeries, brain injury, mech vent etc. On Fentanyl drip, will monitor. 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 Intake Clinician continues to attempt to wean off all sedation, currently on Fennel. * Palliative care will continue to follow to assist with further clarification of treatment goals. . Attestation To help prompt me to consider important information that might be impacting today's encounter and assessment, information from prior notes written by myself or my colleagues may have been "brought forward" into today's note. My signature on this note, however, is an attestation that I personally performed the exam, history, and/or decision-making noted today, and, unless otherwise indicated, the interactions with patient, family, and staff as well as the review of records all occurred today. I also attest that the listed assessment and stated plan reflect my best clinical judgment today based on the combination of historical information, prior notes, and today's exam/ interactions. When time spent is documented, it refers only to time spent today by the signer, or if indicated, combined time spent today by collaborating physician/nurse practitioner. LEWIS RINCON Jan 31, 2017 13:21
--- NOTE | 2017-01-31 15:23 | HHI.IDPN ---
Subjective Subjective Remarks pt cont to have low grade temps Neuro status remapin s poor prognosis is poor familyu considers w/d of care remains on vent Antibiotics CFTX Allergies: Coded Allergies: Vicodin (Verified Adverse Reaction, Severe, NAUSEA/VOMITING, 12/22/14) Objective . Vital Signs Date Time Temp Pulse Resp B/P Pulse Ox O2 Delivery O2 Flow Rate FiO2 01/31/17 14:00 105 01/31/17 12:00 40 01/31/17 12:00 99.7 86 25 154/70 95 01/31/17 12:00 86 01/31/17 11:15 94 40 01/31/17 10:00 99 01/31/17 08:00 95 01/31/17 08:00 100.8 95 24 112/55 99 01/31/17 08:00 45 01/31/17 07:34 97 45 01/31/17 07:34 97 45 01/31/17 06:00 104 01/31/17 04:04 98 45 01/31/17 04:00 109 01/31/17 04:00 100.9 109 24 152/81 97 01/31/17 04:00 45 01/31/17 02:00 103 01/31/17 01:49 100 45 01/31/17 01:20 45 01/31/17 01:10 100 45 01/31/17 00:00 50 01/31/17 00:00 100.4 103 24 144/82 98 01/31/17 00:00 103 01/30/17 22:27 97 50 01/30/17 22:00 100 01/30/17 20:55 24 01/30/17 20:29 50 01/30/17 20:29 99 50 01/30/17 20:00 50 01/30/17 20:00 101.0 103 24 142/80 99 01/30/17 20:00 103 01/30/17 18:00 110 01/30/17 17:07 99 50 01/30/17 16:00 100.9 119 24 126/78 98 01/30/17 16:00 118 01/30/17 16:00 50 01/30/17 01/30/17 01/31/17 15:00 23:00 07:00 Intake Total 526 ml 966 ml 798 ml Output Total 1070 ml 850 ml 806 ml Balance -544 ml 116 ml -8 ml Intake Oral 0 ml IV Total 349 ml 598 ml 337 ml Tube Feeding 152 ml 128 ml 161 ml Tube Irrigant 25 ml Other 240 ml 300 ml Output Urine Total 1000 ml 800 ml 750 ml Drainage Total 70 ml 50 ml 56 ml # Bowel Movements 1 . Laboratory Tests Test 01/30/17 01/31/17 04:00 05:00 White Blood Count 8.1 TH/MM3 9.9 TH/MM3 Red Blood Count 3.29 MIL/MM3 3.42 MIL/MM3 Hemoglobin 9.7 GM/DL 9.9 GM/DL Hematocrit 28.4 % 29.8 % Mean Corpuscular Volume 86.3 FL 87.3 FL Mean Corpuscular Hemoglobin 29.4 PG 29.0 PG Mean Corpuscular Hemoglobin 34.0 % 33.3 % Concent Red Cell Distribution Width 14.7 % 14.7 % Platelet Count 108 TH/MM3 131 TH/MM3 Mean Platelet Volume 9.4 FL 9.9 FL Neutrophils (%) (Auto) 75.2 % 78.7 % Lymphocytes (%) (Auto) 12.4 % 7.2 % Monocytes (%) (Auto) 8.7 % 10.3 % Eosinophils (%) (Auto) 3.3 % 3.4 % Basophils (%) (Auto) 0.4 % 0.4 % Neutrophils # (Auto) 6.1 TH/MM3 7.8 TH/MM3 Lymphocytes # (Auto) 1.0 TH/MM3 0.7 TH/MM3 Monocytes # (Auto) 0.7 TH/MM3 1.0 TH/MM3 Eosinophils # (Auto) 0.3 TH/MM3 0.3 TH/MM3 Basophils # (Auto) 0.0 TH/MM3 0.0 TH/MM3 CBC Comment AUTO DIFF AUTO DIFF Differential Total Cells 100 100 Counted Neutrophils % (Manual) 70 % 67 % Band Neutrophils % 17 % 19 % Lymphocytes % 5 % 5 % Monocytes % 4 % 6 % Eosinophils % 2 % 1 % Neutrophils # (Manual) 7.2 TH/MM3 8.7 TH/MM3 Metamyelocytes 1 % 1 % Myelocytes 1 % 1 % Differential Comment FINAL DIFF FINAL DIFF MANUAL MANUAL Platelet Estimate LOW LOW Platelet Morphology Comment NORMAL NORMAL Toxic Granulation 1+ Polychromasia 2.4 % Laboratory Tests Test 01/29/17 01/30/17 01/30/17 01/30/17 18:23 00:00 04:00 12:11 Sodium Level 158 MEQ/L 159 MEQ/L 157 MEQ/L 155 MEQ/L Serum Osmolality 329 MOSM/KG 332 MOSM/KG 324 MOSM/KG 327 MOSM/KG Potassium Level 3.8 MEQ/L Chloride Level 122 MEQ/L Carbon Dioxide Level 29.0 MEQ/L Anion Gap 6 MEQ/L Blood Urea Nitrogen 31 MG/DL Creatinine 0.80 MG/DL Estimat Glomerular Filtration 94 ML/MIN Rate Random Glucose 139 MG/DL Calcium Level 8.8 MG/DL Phosphorus Level 2.4 MG/DL Magnesium Level 2.3 MG/DL Total Bilirubin 0.6 MG/DL Aspartate Amino Transf 18 U/L (AST/SGOT) Alanine Aminotransferase 18 U/L (ALT/SGPT) Alkaline Phosphatase 54 U/L Total Protein 4.9 GM/DL Albumin 1.7 GM/DL Test 01/30/17 01/31/17 01/31/17 01/31/17 19:40 01:10 05:00 11:35 Sodium Level 154 MEQ/L 153 MEQ/L 152 MEQ/L 152 MEQ/L Serum Osmolality 325 MOSM/KG 335 MOSM/KG 324 MOSM/KG 322 MOSM/KG Potassium Level 4.1 MEQ/L Chloride Level 118 MEQ/L Carbon Dioxide Level 28.1 MEQ/L Anion Gap 6 MEQ/L Blood Urea Nitrogen 34 MG/DL Creatinine 0.80 MG/DL Estimat Glomerular Filtration 94 ML/MIN Rate Random Glucose 123 MG/DL Calcium Level 8.8 MG/DL Total Bilirubin 0.6 MG/DL Aspartate Amino Transf 22 U/L (AST/SGOT) Alanine Aminotransferase 23 U/L (ALT/SGPT) Alkaline Phosphatase 59 U/L Total Protein 5.3 GM/DL Albumin 1.9 GM/DL Microbiology Date/Time Procedure Status Source Growth 01/31/17 11:26 Aerobic Blood Culture Received Blood Peripheral Pending 01/31/17 11:26 Anaerobic Blood Culture Received Blood Peripheral Pending 01/31/17 13:23 Aerobic Blood Culture Received Blood Peripheral Pending 01/31/17 13:23 Anaerobic Blood Culture Received Blood Peripheral Pending Imaging Last Impressions Chest X-Ray 01/30/17 0600 Signed Impressions: Service Date/Time: Monday, January 30, 2017 05:01 - CONCLUSION: 1. Endotracheal tube, nasogastric tube and left central line in satisfactory position. Left-sided basilar airspace disease similar to January 29. Bashir Coughlin MD Head CT 01/30/17 0000 Signed Impressions: Service Date/Time: Monday, January 30, 2017 04:44 - CONCLUSION: Evolving parenchymal hemorrhages in the right frontal lobe and right temporal lobe with extensive extra-axial hemorrhage again noted. No change in mass effect or shift. No hydrocephalus. Left frontal ventriculostomy tip at foramen of Monro. Bashir Coughlin MD Transcranial Doppler Study Complete 01/24/17 0000 Signed Impressions: Service Date/Time: Tuesday, January 24, 2017 10:15 - CONCLUSION: No Doppler findings of intracranial vasospasm. Ralph Thompson MD Pelvis X-Ray 01/23/17 1301 Signed Impressions: Service Date/Time: Monday, January 23, 2017 12:52 - CONCLUSION: No acute disease. Dimitri Orosco MD Chest CT 01/23/17 1301 Signed Impressions: Service Date/Time: Monday, January 23, 2017 13:32 - CONCLUSION: 1. Fracture of the left third, fourth and fifth ribs. 2. The aorta and great vessels are intact. 3. 1 cm partially calcified nodule in the right lung apex probably representing a granuloma. 4. No pneumothorax identified. Zack Carlton MD Cervical Spine CT 01/23/17 1301 Signed Impressions: Service Date/Time: Monday, January 23, 2017 13:32 - CONCLUSION: 1. Advanced degenerative changes throughout the cervical spine. No acute fracture is identified. Zack Carlton MD Abdomen/Pelvis CT 01/23/17 1301 Signed Impressions: Service Date/Time: Monday, January 23, 2017 13:32 - CONCLUSION: 1. Multiple simple cysts within the liver. The largest measures 5.6 x 3.5 cm. 2. 3.7 cm infrarenal abdominal aortic aneurysm. 3. No findings to indicate significant intra-abdominal trauma. Zack Carlton MD Physical Exam CONSTITUTIONAL/GENERAL: This is an adequately nourished patient, in no apparent distress. TUBES/LINES/DRAINS: SKIN: No jaundice, rashes, or lesions. Skin temperature appropriate. Not diaphoretic. HEAD: Ventric in place with very bloody CSF EYES: Pupils constricted and nonreactive. Extraocular motions intact. No scleral icterus. No injection or drainage. Fundi not examined. ENT: Oral mucosae moist orally intuibated NECK: Trachea midline. Supple, nontender. CARDIOVASCULAR: Regular rate and rhythm without murmurs, gallops, or rubs. No JVD. Peripheral pulses symmetric. RESPIRATORY/CHEST: Symmetric, unlabored respirations. Scattered rhonchi to auscultation. Breath sounds equal bilaterally. No wheezes, rales, or rhonchi. GASTROINTESTINAL: Abdomen soft, non-tender, nondistended. No hepato-splenomegaly , or palpable masses. No guarding. Bowel sounds present. GENITOURINARY: Without palpable bladder distension. Worrell catheter in place. MUSCULOSKELETAL: Extremities without clubbing, cyanosis, + minimal edema. N NEUROLOGICAL: sedated; unresponsive; no reaction to stimyulation Assessment & Plan Remarks Traumatic brain injury subarachnoid hemorrhage, Right subdural hemorrhage, Intraventricular hemorrhage Acute hypoxic and hypercarbic respiratory failure Aspiration pneumonia, prehospital sputum culture 12/28 staph aureus and klebsiella, both sensitive to rocephin. -- 01/27, zosyn was d/c and started rocephin 1gm iv q24h. anticipate 7 day course for HCAP (anticipated stop date 02/02) Fever: polifactorial could be at least in part 2/2 central - persistent fever - dc CFTX - start cefazolin - start levaquin - fu repeat BC - obtain CSF for clx - ask NS - repeat repeat sputum Melissa Howard MD Jan 31, 2017 15:22
[2017-01-31] MEDS: ceFAZolin 2 GM PREMIX 50 ML IV SCH (15:45)
[2017-01-31] MEDS ORDERED: LEVOFLOXACIN 750 MG PREMIX INJ 150 ML IV SCH (17:00)
[2017-02-01] VITALS (13 sets, daily range): BP systolic 96–126; BP diastolic 52–62; PULSE 72–118; RESP 24–30; TEMP 99.5–101.1; O2SAT 87–94
[2017-02-01] MEDS: ceFAZolin 2 GM PREMIX 50 ML IV SCH ×2 (00:04→07:57)
[2017-02-01] MEDS: METOPROLOL TARTRATE 25 MG TAB OG-TUBE SCH ×2 (00:04→05:14)
[2017-02-01] MEDS: fentaNYL DRIP 250 ML IV SCH (02:07)
[2017-02-01] MEDS: PROPOFOL 1000 MG/100 ML INJ 100 ML IV SCH ×3 (02:07→09:50)
[2017-02-01] MEDS: RESP: ALBUTEROL 2.5 MG/IPRATROPIUM 0.5 MG NEB (SCH) NEB ×2 (03:11→09:42)
--- NOTE | 2017-02-01 03:20 | RADRPT ---
EXAM DATE/TIME: 02/01/2017 01:51 [facility] COMPARISON: CHEST SINGLE AP, January 30, 2017, 5:01. INDICATIONS : Shortness of breath. MEDICAL HISTORY : None. SURGICAL HISTORY : None. ENCOUNTER: Initial ACUITY: 1 week PAIN SCORE: Non-responsive. LOCATION: Bilateral chest FINDINGS: A single view of the chest demonstrates endotracheal tube in satisfactory position. NG tube tip is at the GE junction. Improved left basilar consolidation since January 30. CONCLUSION: 1. Improved left basilar consolidation since January 30. Endotracheal tube and nasogastric tube unchang ed. Left central line in superior vena cava. Bashir Coughlin MD on February 01, 2017 at 3:17 Board Certified Radiologist. This report was verified electronically.
[2017-02-01] MEDS: CHLORHEXIDINE GLUCONATE 2 % 1 PACK (2 CLOTHS) TOP SCH (04:00)
[2017-02-01 04:23] LABS: AUTOMATED NEUTROPHIL # 13.7 TH/MM3 (1.8-7.7); BASOPHIL # 0.1 TH/MM3 (0-0.2); BASOPHIL % 0.3 % (0.0-2.0); EOSINOPHIL # 0.3 TH/MM3 (0-0.4); EOSINOPHIL % 1.8 % (0.0-4.0); HEMATOCRIT 30.2 % (39.0-51.0); HEMO FLAGS DIFF FINAL; LYMPH % 6.1 % (9.0-44.0); MEAN CELL VOLUME 86.8 FL (80.0-100.0); MEAN CORPUSCULAR HEMOGLOBIN 29.2 PG (27.0-34.0); MEAN CORPUSCULAR HGB CONC 33.6 % (32.0-36.0); MONO % 7.7 % (0.0-8.0); NEUT % 84.1 % (16.0-70.0); PLATELET COUNT 161 TH/MM3 (150-450); RED BLOOD COUNT 3.47 MIL/MM3 (4.50-5.90); RED CELL DISTRIBUTION WIDTH 14.6 % (11.6-17.2); WHITE BLOOD COUNT 16.3 TH/MM3 (4.0-11.0)
[2017-02-01 04:44] LABS: ALKALINE PHOSPHATASE 71 U/L (45-117); ALT (GPT) 27 U/L (12-78); ANION GAP 5 MEQ/L (5-15); AST (GOT) 31 U/L (15-37); BLOOD UREA NITROGEN 41 MG/DL (7-18); CHLORIDE 117 MEQ/L (98-107); GLOMERULAR FILTRATION RATE 94 ML/MIN (>89); MAGNESIUM 2.6 MG/DL (1.5-2.5); POTASSIUM 3.8 MEQ/L (3.5-5.1); SODIUM (NA) 151 MEQ/L (136-145); TOTAL BILIRUBIN ADULT 0.6 MG/DL (0.2-1.0)
[2017-02-01 05:27] LABS: BLOOD GAS CARBOXYHEMOGLOBIN 1.6 % (0-4); BLOOD GAS HCO3 25 mmol/L (22-26); BLOOD GAS METHEMOGLOBIN 0.9 % (0-2); BLOOD GAS O2 HGB SATURATION 95 % (90-100); BLOOD GAS OXYGEN CONTENT 13.6 Vol % (12.0-20.0); BLOOD GAS PCO2 32 mmHg (38-42); BLOOD GAS PO2 88 mmHg (61-120); BLOOD GAS TOTAL HGB 10.1 G/DL (12.0-16.0); CRITICAL VALUE YES; OXYGEN DEVICE VENTILATOR; TEMP CORR TO 98.6
[2017-02-01 05:28] LABS: DRAW SITE ALINE; FIO2 40 %; STAT NO
[2017-02-01] MEDS: INSULIN NovoLIN REGULAR SUPPLEMENTAL SCALE SQ SCH ×3 (06:00→12:00)
[2017-02-01] MEDS: hydrALAZINE HCL 20 MG/ML VIAL IV PUSH SCH ×2 (06:00)
[2017-02-01] MEDS: CHLORHEXIDINE 0.12% (ORAL KIT) 15 ML CUP MT SCH (07:57)
[2017-02-01] MEDS: SODIUM CHLORIDE 0.9% FLUSH 5 ML FLUSH IVF SCH (09:00)
[2017-02-01] MEDS ORDERED: amLODIPine BESYLATE 5 MG TAB PO SCH (09:00)
[2017-02-01] MEDS: PANTOPRAZOLE SODIUM 40 MG VIAL IV SCH (09:34)
[2017-02-01] MEDS: DIGOXIN 0.5 MG/2 ML VIAL IV PUSH SCH (09:35)
[2017-02-01] MEDS: levETIRAcetam INJ 500 MG in SODIUM CHLORIDE 0.9% INJ 100 ML IV SCH (09:35)
[2017-02-01] MEDS ORDERED: DEXMEDETOMIDINE INJ 50 ML IV SCH (10:15)
[2017-02-01] MEDS ORDERED: Vancomycin Consult Pharmacy 1 EA OTHER SCH (11:30)
[2017-02-01] MEDS ORDERED: DEXMEDETOMIDINE 200 MCG in NS 50 ML/ ADMIX IV SCH (12:00)
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
[2017-02-01] MEDS ORDERED: DEXMEDETOMIDINE INJ 200 MCG in SODIUM CHLORIDE 0.9% INJ 48 ML IV SCH (12:51)
[2017-02-01] MEDS ORDERED: VANCOMYCIN INJ 1,750 MG in SODIUM CHLORID 0.9% 500 ML INJ 500 ML IV SCH (13:00)
[2017-02-01] MEDS ORDERED: HYOSCYAMINE 0.125 MG TAB PO/SL ONE (14:15)
--- NOTE | 2017-02-01 14:26 | HHI.HCPN ---
Reason for visit a. To assist with evaluation and management of symptoms including: encephalopathy, dyspnea. b. To assist medical decision maker(s) with: better understanding of current medical conditions; weighing benefits/burdens of medical treatment options; making medical treatment decisions. . Subjective/Interval History Patient seen and examined in ICU. Discussed with Dr. Villalobos, Dr. Sanchez, Dr. Tim and nurse. No family at bedside during my exam. Patient is on Precedex and Fentanyl, off Propofol. He remains unresponsive, no corneal reflex or gag. Tmax 100.6. HR 70s-110. Remains on mech vent, FiO2 40%, PEEP 15. WBC increased from 9.9 to 16.3. Serum osmolality 322. Sodium 151. Albumin 1.8, despite artificial nutrition. Blood cultures positive staph epidermidis. Chest x-ray improved left basilar consolidation. No evidence of neurologic recovery. . Family/friend interactions Met with niece (Nasima/ANH), brothers (MEMO and Edi) and sister in law (February) . Also present Shey Diaz ([employer] med student). Dr. Villalobos and Dr. Sanchez met with family separately. Medical update provided. Family has elected to proceed with withdrawal of life support today. They are certain patient would not want trach/PEG or to live a life of dependence. The family requests a pulmonology technician be present at the time of withdrawal of life support. Residential Aide will be here at 4pm. Nurse and family notified. . Advance Directives Living Will: Copy in medical record Health Care Surrogate: Copy in medical record Advance Directive Specifics Date completed: 08/08/16 . Health Care Surrogate(s): Health care Power of Retail Shift Manager: Primary - Nasima Barcenas ([facility]) Alternate: Johnna Perez ([facility]) . Documented care wishes: Living Will states should his attending MD document that he have an incurable injury, disease or illness and would occur in a short time and use of life prolonging procedures be withheld or withdrawn and that he be permitted to naturally and that he does not want to receive artificial nutrition or hydration. . Significant change in goals: NO CODE. Family desires to proceed with withdrawal of life support today. . Objective Vital Signs Date Time Temp Pulse Resp B/P Pulse Ox O2 Delivery O2 Flow Rate FiO2 02/01/17 12:00 99.7 78 26 122/59 94 02/01/17 12:00 78 02/01/17 11:19 93 40 02/01/17 08:00 104 02/01/17 08:00 100.2 106 30 123/60 93 02/01/17 07:56 93 40 02/01/17 06:00 106 02/01/17 04:02 94 40 02/01/17 04:00 100.6 118 27 113/61 93 02/01/17 04:00 118 02/01/17 04:00 40 02/01/17 02:00 114 02/01/17 01:05 93 40 02/01/17 01:05 93 40 02/01/17 00:00 108 02/01/17 00:00 40 02/01/17 00:00 99.5 108 24 126/62 92 01/31/17 22:21 94 40 01/31/17 22:00 111 01/31/17 20:00 40 01/31/17 20:00 99.7 111 26 122/61 92 01/31/17 20:00 111 01/31/17 19:42 93 40 01/31/17 19:42 93 40 01/31/17 18:00 114 01/31/17 16:17 93 40 01/31/17 16:00 101 01/31/17 16:00 99.9 101 24 152/69 94 01/31/17 16:00 40 Intake & Output 02/01/17 02/01/17 07:00 19:00 Intake Total 1437 ml Output Total 1737 ml 0 ml Balance -300 ml 0 ml IV Total 1054 ml Tube Feeding 323 ml Tube Irrigant 60 ml Output Urine Total 1650 ml Tube Feeding Residual Discard 0 ml Drainage Total 87 ml Physical Exam CONSTITUTIONAL/GENERAL: This is an elderly, critically ill patient, on [facility] vent. TUBES/LINES/DRAINS: ventriculostomy, ETT, OG, left subclavian central line, bilateral soft wrist restraints, Worrell, SCDs SKIN: Ice packs. No jaundice, rashes, or lesions. Ecchymoses on upper extremities. Skin tears bilateral UE. Skin temperature appropriate. Not diaphoretic. HEAD: Ventriculostomy. CARDIOVASCULAR: intermittent tachycardic. RESPIRATORY/CHEST: Symmetric, unlabored respirations on vent. Course breath sounds bilaterally. GASTROINTESTINAL: Abdomen soft, distended. Bowel sounds present. GENITOURINARY: Without palpable bladder distension. Worrell catheter in place, dark tea colored urine. MUSCULOSKELETAL: Extremities with upper and lower extremity edema. NEUROLOGICAL: Does not awaken to voice or noxious stimuli. No spontaneous movements noted. PSYCHIATRIC: Sedated. . Diagnostic Tests Laboratory Laboratory Tests Test 01/29/17 01/29/17 01/30/17 01/30/17 16:25 18:23 00:00 04:00 Blood Gas Puncture Site ART LINE Blood Gas Patient Temperature 98.6 Blood Gas HCO3 25 mmol/L (22-26) Blood Gas Base Excess 1.0 mmol/L (-2-2) Blood Gas Oxygen Saturation 95 % (90-100) Arterial Blood pH 7.40 (7.380-7.420) Arterial Blood Partial 41 mmHg (38-42) Pressure CO2 Arterial Blood Partial 84 mmHg Pressure O2 (61-120) Arterial Blood Oxygen Content 12.7 Vol % (12.0-20.0) Arterial Blood 1.5 % (0-4) Carboxyhemoglobin Arterial Blood Methemoglobin 0.8 % (0-2) Blood Gas Hemoglobin 9.5 G/DL (12.0-16.0) Oxygen Delivery Device VENTILATOR Blood Gas Ventilator Setting Blood Gas Inspired Oxygen 50 % Sodium Level 158 MEQ/L 159 MEQ/L 157 MEQ/L (136-145) (136-145) (136-145) Serum Osmolality 329 MOSM/KG 332 MOSM/KG 324 MOSM/KG (275-295) (275-295) (275-295) White Blood Count 8.1 TH/MM3 (4.0-11.0) Red Blood Count 3.29 MIL/MM3 (4.50-5.90) Hemoglobin 9.7 GM/DL (13.0-17.0) Hematocrit 28.4 % (39.0-51.0) Mean Corpuscular Volume 86.3 FL (80.0-100.0) Mean Corpuscular Hemoglobin 29.4 PG (27.0-34.0) Mean Corpuscular Hemoglobin 34.0 % Concent (32.0-36.0) Red Cell Distribution Width 14.7 % (11.6-17.2) Platelet Count 108 TH/MM3 (150-450) Mean Platelet Volume 9.4 FL (7.0-11.0) Neutrophils (%) (Auto) 75.2 % (16.0-70.0) Lymphocytes (%) (Auto) 12.4 % (9.0-44.0) Monocytes (%) (Auto) 8.7 % (0.0-8.0) Eosinophils (%) (Auto) 3.3 % (0.0-4.0) Basophils (%) (Auto) 0.4 % (0.0-2.0) Neutrophils # (Auto) 6.1 TH/MM3 (1.8-7.7) Lymphocytes # (Auto) 1.0 TH/MM3 (1.0-4.8) Monocytes # (Auto) 0.7 TH/MM3 (0-0.9) Eosinophils # (Auto) 0.3 TH/MM3 (0-0.4) Basophils # (Auto) 0.0 TH/MM3 (0-0.2) CBC Comment AUTO DIFF Differential Total Cells 100 Counted Neutrophils % (Manual) 70 % (16-70) Band Neutrophils % 17 % (0-6) Lymphocytes % 5 % (9-44) Monocytes % 4 % (0-8) Eosinophils % 2 % (0-4) Neutrophils # (Manual) 7.2 TH/MM3 (1.8-7.7) Metamyelocytes 1 % (0-1) Myelocytes 1 % (0-0) Differential Comment FINAL DIFF MANUAL Platelet Estimate LOW (NORMAL) Platelet Morphology Comment NORMAL (NORMAL) Potassium Level 3.8 MEQ/L (3.5-5.1) Chloride Level 122 MEQ/L (98-107) Carbon Dioxide Level 29.0 MEQ/L (21.0-32.0) Anion Gap 6 MEQ/L (5-15) Blood Urea Nitrogen 31 MG/DL (7-18) Creatinine 0.80 MG/DL (0.60-1.30) Estimat Glomerular Filtration 94 ML/MIN (>89) Rate Random Glucose 139 MG/DL (74-106) Calcium Level 8.8 MG/DL (8.5-10.1) Phosphorus Level 2.4 MG/DL (2.5-4.9) Magnesium Level 2.3 MG/DL (1.5-2.5) Total Bilirubin 0.6 MG/DL (0.2-1.0) Aspartate Amino Transf 18 U/L (15-37) (AST/SGOT) Alanine Aminotransferase 18 U/L (12-78) (ALT/SGPT) Alkaline Phosphatase 54 U/L (45-117) Total Protein 4.9 GM/DL (6.4-8.2) Albumin 1.7 GM/DL (3.4-5.0) Test 01/30/17 01/30/17 01/30/17 01/31/17 05:20 12:11 19:40 01:10 Blood Gas Puncture Site ART LINE Blood Gas Patient Temperature 98.6 Blood Gas HCO3 27 mmol/L (22-26) Blood Gas Base Excess 3.0 mmol/L (-2-2) Blood Gas Oxygen Saturation 92 % (90-100) Arterial Blood pH 7.44 (7.380-7.420) Arterial Blood Partial 40 mmHg (38-42) Pressure CO2 Arterial Blood Partial 69 mmHg Pressure O2 (61-120) Arterial Blood Oxygen Content 12.5 Vol % (12.0-20.0) Arterial Blood 1.7 % (0-4) Carboxyhemoglobin Arterial Blood Methemoglobin 0.8 % (0-2) Blood Gas Hemoglobin 9.6 G/DL (12.0-16.0) Oxygen Delivery Device VENTILATOR Blood Gas Ventilator Setting Blood Gas Inspired Oxygen 50 % Sodium Level 155 MEQ/L 154 MEQ/L 153 MEQ/L (136-145) (136-145) (136-145) Serum Osmolality 327 MOSM/KG 325 MOSM/KG 335 MOSM/KG (275-295) (275-295) (275-295) Test 01/31/17 01/31/17 01/31/17 01/31/17 05:00 11:35 14:00 18:10 White Blood Count 9.9 TH/MM3 (4.0-11.0) Red Blood Count 3.42 MIL/MM3 (4.50-5.90) Hemoglobin 9.9 GM/DL (13.0-17.0) Hematocrit 29.8 % (39.0-51.0) Mean Corpuscular Volume 87.3 FL (80.0-100.0) Mean Corpuscular Hemoglobin 29.0 PG (27.0-34.0) Mean Corpuscular Hemoglobin 33.3 % Concent (32.0-36.0) Red Cell Distribution Width 14.7 % (11.6-17.2) Platelet Count 131 TH/MM3 (150-450) Mean Platelet Volume 9.9 FL (7.0-11.0) Neutrophils (%) (Auto) 78.7 % (16.0-70.0) Lymphocytes (%) (Auto) 7.2 % (9.0-44.0) Monocytes (%) (Auto) 10.3 % (0.0-8.0) Eosinophils (%) (Auto) 3.4 % (0.0-4.0) Basophils (%) (Auto) 0.4 % (0.0-2.0) Neutrophils # (Auto) 7.8 TH/MM3 (1.8-7.7) Lymphocytes # (Auto) 0.7 TH/MM3 (1.0-4.8) Monocytes # (Auto) 1.0 TH/MM3 (0-0.9) Eosinophils # (Auto) 0.3 TH/MM3 (0-0.4) Basophils # (Auto) 0.0 TH/MM3 (0-0.2) CBC Comment AUTO DIFF Differential Total Cells 100 Counted Neutrophils % (Manual) 67 % (16-70) Band Neutrophils % 19 % (0-6) Lymphocytes % 5 % (9-44) Monocytes % 6 % (0-8) Eosinophils % 1 % (0-4) Neutrophils # (Manual) 8.7 TH/MM3 (1.8-7.7) Metamyelocytes 1 % (0-1) Myelocytes 1 % (0-0) Differential Comment FINAL DIFF MANUAL Toxic Granulation 1+ (NORMAL) Platelet Estimate LOW (NORMAL) Platelet Morphology Comment NORMAL (NORMAL) Polychromasia 2.4 % (0.0-1.9) Blood Gas Puncture Site ART LINE Blood Gas Patient Temperature 98.6 Blood Gas HCO3 26 mmol/L (22-26) Blood Gas Base Excess 2.3 mmol/L (-2-2) Blood Gas Oxygen Saturation 96 % (90-100) Arterial Blood pH 7.47 (7.380-7.420) Arterial Blood Partial 35 mmHg (38-42) Pressure CO2 Arterial Blood Partial 94 mmHg Pressure O2 (61-120) Arterial Blood Oxygen Content 13.6 Vol % (12.0-20.0) Arterial Blood 1.5 % (0-4) Carboxyhemoglobin Arterial Blood Methemoglobin 0.6 % (0-2) Blood Gas Hemoglobin 10.0 G/DL (12.0-16.0) Oxygen Delivery Device VENTILATOR Blood Gas Ventilator Setting Blood Gas Inspired Oxygen 45 % Sodium Level 152 MEQ/L 152 MEQ/L 150 MEQ/L (136-145) (136-145) (136-145) Potassium Level 4.1 MEQ/L (3.5-5.1) Chloride Level 118 MEQ/L (98-107) Carbon Dioxide Level 28.1 MEQ/L (21.0-32.0) Anion Gap 6 MEQ/L (5-15) Blood Urea Nitrogen 34 MG/DL (7-18) Creatinine 0.80 MG/DL (0.60-1.30) Estimat Glomerular Filtration 94 ML/MIN (>89) Rate Random Glucose 123 MG/DL (74-106) Serum Osmolality 324 MOSM/KG 322 MOSM/KG 321 MOSM/KG (275-295) (275-295) (275-295) Calcium Level 8.8 MG/DL (8.5-10.1) Total Bilirubin 0.6 MG/DL (0.2-1.0) Aspartate Amino Transf 22 U/L (15-37) (AST/SGOT) Alanine Aminotransferase 23 U/L (12-78) (ALT/SGPT) Alkaline Phosphatase 59 U/L (45-117) Total Protein 5.3 GM/DL (6.4-8.2) Albumin 1.9 GM/DL (3.4-5.0) Urine Color YELLOW (YELLW/STRAW) Urine Turbidity HAZY (CLEAR) Urine pH 7.5 (5.0-8.5) Urine Specific [place] 1.018 (1.002-1.035) Urine Protein NEG mg/dL (NEG-TRACE) Urine Glucose (UA) NEG mg/dL (NEG) Urine Ketones NEG mg/dL (NEG) Urine Occult Blood NEG (NEG) Urine Nitrite NEG (NEG) Urine Bilirubin NEG (NEG) Urine Urobilinogen LESS THAN 2.0 MG/DL (LESS THAN 2.0) Urine Leukocyte Esterase NEG (NEG) Urine RBC 2 /hpf (0-3) Urine WBC 2 /hpf (0-5) Urine Amorphous Sediment RARE Microscopic Urinalysis Comment CATH-CULT NOT IND Digoxin Level 0.8 NG/ML (0.8-2.0) Test 02/01/17 02/01/17 02/01/17 00:30 03:56 05:19 Sodium Level 152 MEQ/L 151 MEQ/L (136-145) (136-145) Serum Osmolality 318 MOSM/KG 322 MOSM/KG (275-295) (275-295) White Blood Count 16.3 TH/MM3 (4.0-11.0) Red Blood Count 3.47 MIL/MM3 (4.50-5.90) Hemoglobin 10.1 GM/DL (13.0-17.0) Hematocrit 30.2 % (39.0-51.0) Mean Corpuscular Volume 86.8 FL (80.0-100.0) Mean Corpuscular Hemoglobin 29.2 PG (27.0-34.0) Mean Corpuscular Hemoglobin 33.6 % Concent (32.0-36.0) Red Cell Distribution Width 14.6 % (11.6-17.2) Platelet Count 161 TH/MM3 (150-450) Mean Platelet Volume 10.1 FL (7.0-11.0) Neutrophils (%) (Auto) 84.1 % (16.0-70.0) Lymphocytes (%) (Auto) 6.1 % (9.0-44.0) Monocytes (%) (Auto) 7.7 % (0.0-8.0) Eosinophils (%) (Auto) 1.8 % (0.0-4.0) Basophils (%) (Auto) 0.3 % (0.0-2.0) Neutrophils # (Auto) 13.7 TH/MM3 (1.8-7.7) Lymphocytes # (Auto) 1.0 TH/MM3 (1.0-4.8) Monocytes # (Auto) 1.3 TH/MM3 (0-0.9) Eosinophils # (Auto) 0.3 TH/MM3 (0-0.4) Basophils # (Auto) 0.1 TH/MM3 (0-0.2) CBC Comment DIFF FINAL Differential Comment Potassium Level 3.8 MEQ/L (3.5-5.1) Chloride Level 117 MEQ/L (98-107) Carbon Dioxide Level 29.0 MEQ/L (21.0-32.0) Anion Gap 5 MEQ/L (5-15) Blood Urea Nitrogen 41 MG/DL (7-18) Creatinine 0.80 MG/DL (0.60-1.30) Estimat Glomerular Filtration 94 ML/MIN (>89) Rate Random Glucose 146 MG/DL (74-106) Calcium Level 8.7 MG/DL (8.5-10.1) Phosphorus Level 2.6 MG/DL (2.5-4.9) Magnesium Level 2.6 MG/DL (1.5-2.5) Total Bilirubin 0.6 MG/DL (0.2-1.0) Aspartate Amino Transf 31 U/L (15-37) (AST/SGOT) Alanine Aminotransferase 27 U/L (12-78) (ALT/SGPT) Alkaline Phosphatase 71 U/L (45-117) Total Protein 5.3 GM/DL (6.4-8.2) Albumin 1.8 GM/DL (3.4-5.0) Blood Gas Puncture Site MARIKA Blood Gas Patient Temperature 98.6 Blood Gas HCO3 25 mmol/L (22-26) Blood Gas Base Excess 2.0 mmol/L (-2-2) Blood Gas Oxygen Saturation 95 % (90-100) Arterial Blood pH 7.51 (7.380-7.420) Arterial Blood Partial 32 mmHg (38-42) Pressure CO2 Arterial Blood Partial 88 mmHg Pressure O2 (61-120) Arterial Blood Oxygen Content 13.6 Vol % (12.0-20.0) Arterial Blood 1.6 % (0-4) Carboxyhemoglobin Arterial Blood Methemoglobin 0.9 % (0-2) Blood Gas Hemoglobin 10.1 G/DL (12.0-16.0) Oxygen Delivery Device VENTILATOR Blood Gas Ventilator Setting SEE COMMENT Blood Gas Inspired Oxygen 40 % Result Diagram: 02/01/17 0356 02/01/17 0356 Microbiology Microbiology Date/Time Procedure Status Source Growth 01/31/17 11:26 Aerobic Blood Culture - Preliminary Resulted Blood Peripheral NO GROWTH IN 1 DAY 01/31/17 11:26 Anaerobic Blood Culture - Preliminary Resulted Blood Peripheral NO GROWTH IN 1 DAY 01/31/17 13:23 Aerobic Blood Culture - Preliminary Resulted Blood Peripheral Staphylococcus Epidermidis 01/31/17 13:23 Anaerobic Blood Culture - Final Resulted Blood Peripheral ONLY AEROBIC CULTURE ORDERED 02/01/17 00:30 Gram Stain - Final Resulted Sputum Endotracheal 02/01/17 00:30 Sputum Culture Resulted Sputum Endotracheal Pending . Imaging Last Impressions Chest X-Ray 02/01/17 0600 Signed Impressions: Service Date/Time: January 01:51 - CONCLUSION: 1. Improved left basilar consolidation since January 30. Endotracheal tube and nasogastric tube unchanged. Left central line in superior vena cava. Bashir Coughlin MD Head CT 01/30/17 0000 Signed Impressions: Service Date/Time: Monday, January 30, 2017 04:44 - CONCLUSION: Evolving parenchymal hemorrhages in the right frontal lobe and right temporal lobe with extensive extra-axial hemorrhage again noted. No change in mass effect or shift. No hydrocephalus. Left frontal ventriculostomy tip at foramen of [place]ro. Bashir Coughlin MD Transcranial Doppler Study Complete 01/24/17 0000 Signed Impressions: Service Date/Time: Tuesday, January 24, 2017 10:15 - CONCLUSION: No Doppler findings of intracranial vasospasm. Ralph Thompson MD Pelvis X-Ray 01/23/17 1301 Signed Impressions: Service Date/Time: Monday, January 23, 2017 12:52 - CONCLUSION: No acute disease. Dimitri Orosco MD Chest CT 01/23/17 1301 Signed Impressions: Service Date/Time: Monday, January 23, 2017 13:32 - CONCLUSION: 1. Fracture of the left third, fourth and fifth ribs. 2. The aorta and great vessels are intact. 3. 1 cm partially calcified nodule in the right lung apex probably representing a granuloma. 4. No pneumothorax identified. Zack Carlton MD Cervical Spine CT 01/23/17 1301 Signed Impressions: Service Date/Time: Monday, January 23, 2017 13:32 - CONCLUSION: 1. Advanced degenerative changes throughout the cervical spine. No acute fracture is identified. Zack Carlton MD Abdomen/Pelvis CT 01/23/17 1301 Signed Impressions: Service Date/Time: Monday, January 23, 2017 13:32 - CONCLUSION: 1. Multiple simple cysts within the liver. The largest measures 5.6 x 3.5 cm. 2. 3.7 cm infrarenal abdominal aortic aneurysm. 3. No findings to indicate significant intra-abdominal trauma. Zack Carlton MD . Procedures * 01/28/17 - Bronchoscopy * 01/27/17 - ICP monitor removed and Ventriculostomy * 01/23/17 - A. Line and ICP monitor placed . Assessment and Plan Disease Oriented Problem List: (1) Major neurocognitive disorder as late effect of traumatic brain injury with behavioral disturbance (2) Fracture of left side of base of skull (3) Subdural hematoma (4) Traumatic subarachnoid hematoma with loss of consciousness (5) Closed head injury (6) Multiple fractures of ribs of left side (7) Ureteral calculus Symptom Scale: (1) Dyspnea 0-10 Scale: Unable to quantify Comment: On vent FiO2 40%, PEEP 12 (2) Encephalopathy 0-10 Scale: Unable to quantify (3) Pain 0-10 Scale: Unable to quantify Pertinent Non-Medical Issues Psychosocial: . Estranged from children. Supported by brothers, nieces and friends. Spiritual: Muslim. Legal:Patient is incapacitated, unlikely he will regain capacity. It appears there has been some confusion regarding legal decision maker. To clarify, patient has completed written advanced directives, Living Will and Health Care Power of Retail Shift Manager on chart. He has named his niece, Nasima Barcenas as primary HCS and nieceRazia as alternate HCS. 01/29/17 - Nasima Barcenas then indicates she IS willing to serve as health care power of county attorney per her uncles (Janette Thomas) previously written directive. Faxed LW and HCPOA to HIM to be scanned into EMR, copy on chart. Ethical issues impacting care: No known concerns at this time. . Important Contacts * nba Solitario/ primary HC-POA: [phone] * Johnna Velázquezuibouchra niece/ alt HC-POA: * Ricki (MEMO or Yazan) William, brother: [phone] * Inga Thomas CB: [phone] * Edi Thomas, brother: . Prognosis Overall prognosis appears poor for meaningful recovery given extent of brain injury and comorbidities. Per labor representative: "Overall impression: Critically ill with severe traumatic brain injury. No improvement despite maximal efforts at brain protection. Prognosis poor." . Code Status: No Code Plan * Patient is incapacitated, unlikely he will regain capacity. It appears there has been some confusion regarding legal decision maker. To clarify, patient has completed written advanced directives, Living Will and Health Care Power of Retail Shift Manager on chart. He has named his niece, Nasima Barcenas as primary HCS and niece Razia as alternate HCS. 01/29/17 - Nasima Barcenas then indicates she IS willing to serve as health care power of county attorney per her uncles (Janette Thomas) previously written directive. Faxed LW and HCPOA to HIM to be scanned into EMR, copy on chart. * NO CODE * 02/01/17 - Met with niece (Nasima/HC-LENORE), brothers (MEMO and Edi) and sister in law (February). Also present Shey Diaz ([employer] med student). Dr. Villalobos and Dr. Sanchez met with family separately. Medical update provided. Family has elected to proceed with withdrawal of life support today. They are certain patient would not want trach/PEG or to live a life of dependence. The family requests a pulmonology technician be present at the time of withdrawal of life support. Residential Aide will be here at 4pm. Nurse and family notified. * Exhibits B & C on chart- signed. * SYMPTOMS: Dyspnea: on mech vent FiO2 40%, PEEP 12. respirations appear unlabored today. Pain: sources include recent trauma, surgeries, brain injury, mech vent etc. On Fentanyl drip, will monitor. 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 * Orders written for transition to comfort measures and compassionate withdrawal of life support by Dr. Tim. * Palliative care will continue to follow to assist with further clarification of treatment goals. . Time Spent Total Floor Time (mins): 120 Face to Face Time (mins): 60 >50% Counseling/Coord of Care: Yes Attestation To help prompt me to consider important information that might be impacting today's encounter and assessment, information from prior notes written by myself or my colleagues may have been "brought forward" into today's note. My signature on this note, however, is an attestation that I personally performed the exam, history, and/or decision-making noted today, and, unless otherwise indicated, the interactions with patient, family, and staff as well as the review of records all occurred today. I also attest that the listed assessment and stated plan reflect my best clinical judgment today based on the combination of historical information, prior notes, and today's exam/ interactions. When time spent is documented, it refers only to time spent today by the signer, or if indicated, combined time spent today by collaborating physician/nurse practitioner. LEWIS RINCON Feb 01, 2017 14:26
[2017-02-01] MEDS ORDERED: BISACODYL 10 MG SUPP RECTAL PRN (14:45)
[2017-02-01] MEDS ORDERED: ACETAMINOPHEN 650 MG SUPP RECTAL PRN (14:45)
[2017-02-01] MEDS ORDERED: MORPHINE SULFATE 8 MG/ML INJ IV PUSH PRN (14:45)
[2017-02-01] MEDS ORDERED: LORazepam 2 MG/ML VIAL IV PRN ×2 (14:45)
[2017-02-01] MEDS ORDERED: LORazepam 2 MG/ML VIAL IVS PRN (14:45)
[2017-02-01] MEDS ORDERED: FUROSEMIDE 20 MG/2 ML VIAL IV PRN (15:00)
[2017-02-01] MEDS ORDERED: MORPHINE SULFATE 4 MG/ML INJ IV ONE (15:00)
[2017-02-01] MEDS ORDERED: MORPHINE SULFATE 4 MG/ML INJ IV PRN (15:00)
[2017-02-01] MEDS ORDERED: LORazepam 2 MG/ML VIAL IV ONE ×2 (15:00)
[2017-02-01] MEDS ORDERED: MORPHINE SULFATE 8 MG/ML INJ IV PUSH ONE (15:00)
[2017-02-01] MEDS: DEXMEDETOMIDINE 200 MCG in NS 50 ML/ ADMIX IV SCH ×2 (15:10→16:32)
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
[2017-02-01] MEDS ORDERED: LORazepam 2 MG/ML VIAL IV SCH (16:00)
[2017-02-01] MEDS ORDERED: MORPHINE SULFATE 4 MG/ML INJ IV SCH (16:00)
[2017-02-03] MEDS ORDERED: PHARMACY ORDERED LAB ONE (00:45)
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
== END 2017-02-01 19:35 | disposition expired | DRG 25 ==
LOC: NEPI 12:55 → NEDA 14:00 → EDBD 14:00 → MERGE 14:00 → N03B 14:03
PROVIDERS: ADMIT Surgery; ATTEND Surgery
PROC: 4A103BD Monitoring of Intracranial Pressure, Percutaneous Approach (ICD-10-PCS; principal; 2017-01-23)
PROC: 00H032Z Insertion of Monitoring Device into Brain, Percutaneous Approach (ICD-10-PCS; 2017-01-23)
PROC: 03HY32Z Insertion of Monitoring Device into Upper Artery, Percutaneous Approach (ICD-10-PCS; 2017-01-23)
PROC: 00P Central Nervous System and Cranial Nerves, Removal (ICD-10-PCS; 2017-01-27)
PROC: 0BJ08ZZ Inspection of Tracheobronchial Tree, Via Natural or Artificial Opening Endoscopic (ICD-10-PCS; 2017-01-28)
DX: S06.5X9A Traumatic subdural hemorrhage with loss of consciousness of unspecified duration, initial encounter (principal); J69.0 Pneumonitis due to inhalation of food and vomit; S22.42XA Multiple fractures of ribs, left side, initial encounter for closed fracture; S06.6X9A Traumatic subarachnoid hemorrhage with loss of consciousness of unspecified duration, initial encounter; G93.6 Cerebral edema; J96.01 Acute respiratory failure with hypoxia; J96.02 Acute respiratory failure with hypercapnia; A41.9 Sepsis, unspecified organism; G93.40 Encephalopathy, unspecified; E87.0 Hyperosmolality and hypernatremia; E46 Unspecified protein-calorie malnutrition; D62 Acute posthemorrhagic anemia; I25.810 Atherosclerosis of coronary artery bypass graft(s) without angina pectoris; N20.1 Calculus of ureter; F01.51 Vascular dementia, unspecified severity, with behavioral disturbance; S06.2X9A Diffuse traumatic brain injury with loss of consciousness of unspecified duration, initial encounter; E87.8 Other disorders of electrolyte and fluid balance, not elsewhere classified; S02.109A Fracture of base of skull, unspecified side, initial encounter for closed fracture; V13.4XXA Pedal cycle driver injured in collision with car, pick-up truck or van in traffic accident, initial encounter; Y92.410 Unspecified street and highway as the place of occurrence of the external cause; R40.2430 Glasgow coma scale score 3-8, unspecified time; E78.5 Hyperlipidemia, unspecified; E87.6 Hypokalemia; H92.22 Otorrhagia, left ear; I10 Essential (primary) hypertension; Z95.1 Presence of aortocoronary bypass graft; I71.4 Abdominal aortic aneurysm, without rupture; K21.9 Gastro-esophageal reflux disease without esophagitis; K76.89 Other specified diseases of liver; N40.0 Benign prostatic hyperplasia without lower urinary tract symptoms; S01.01XA Laceration without foreign body of scalp, initial encounter; Z51.5 Encounter for palliative care; Z66 Do not resuscitate; Z79.82 Long term (current) use of aspirin; Z87.891 Personal history of nicotine dependence
CPT/HCPCS: 31500; 36556; 61210; 70450; 71010; 71260; 72125; 72170; 74177; 80048; 80053; 80162; 81001; 82435; 82533; 82550; 82552; 82565; 82805; 82947; 82948; 83735; 83930; 84100; 84132; 84145; 84295; 84443; 84484; 84520; 85007; 85025; 85027; 85610; 85730; 86403; 86850; 86900; 86901; 87040; 87070; 87077; 87147; 87186; 87205; 87641; 93005; 93306; 93886; 94002; 94003; 94640; 94664; 94770; 95819; 96374; 99291; C9113; C9399; G0390; J0131; J0360; J0690; J0696; J1160; J1940; J1953; J1956; J2060; J2175; J2250; J2270; J2543; J3010; J3480; J7030; J7050; L0150; L0172; Q9967